=== PATIENT | female | born 1935 | race Caucasian/White ===

== ENCOUNTER 2016-11-19 15:18 | Emergency (ER) | payer MEDICARE ==
[2016-11-19 15:42] VITALS: BP 132/70
[2016-11-19 17:15] LABS: Urine Bacteria 1+ (Absent); Urine Bilirubin Negative (Negative); Urine Glucose Negative (Negative); Urine Nitrite Negative (Negative)
--- NOTE | 2016-11-19 17:45 | RAD ---
INDICATION: Intracranial injury COMPARISON: CT brain February 09, 2016 TECHNIQUE: Noncontrast axial source images were acquired from the skull base to the vertex. FINDINGS: Ventricles/sulci: There is minor age-related cortical atrophy with compensatory dilatation of the CSF spaces. Brain parenchyma: There is no acute focal parenchymal finding, evidence of intracranial mass, or intracranial mass effect. Intracranial hemorrhage:None. Extra-axial spaces: There are no abnormal extra axial fluid collections or evidence of extra-axial mass. Calvarium: There is no calvarial fracture or other calvarial abnormality. Scalp: There is no evidence of scalp or extracalvarial soft tissue abnormality. Paranasal sinuses/mastoid: The paranasal sinuses and mastoid air cells are clear. Other: None. IMPRESSION: Mild atrophy. No acute intracranial findings
[2016-11-19 17:52] LABS: Hematocrit 36 % (35-47); Hemoglobin 11.9 g/dl (12.0-16.0); Mean Corpuscular HGB Conc 33 g/dl (31-36); Mean Corpuscular Hemoglobin 31 pg (27-31); Mean Corpuscular Volume 95 fL (80-97); Mean Platelet Volume 8 um3 (7.4-10.4); Red Blood Count 3.83 10^6/ul (4.0-5.4); Red Cell Distribution Width 14 % (10.5-15); White Blood Count 5.1 10^3/ul (3.5-10.8)
--- NOTE | 2016-11-19 18:09 | RAD ---
INDICATION: Fall. Possible injury. COMPARISON: None TECHNIQUE: Noncontrast axial source images was performed from the skull base to the thoracic inlet. Coronal and and sagittal reformatted images were generated. FINDINGS: Vertebrae: There is no fracture or acute focal bony lesion. There are arthritic findings with prominent anterior vertebral spur formation from C3 through the cervical/thoracic junction. There is endplate sclerosis. Disc space narrowing is present at C6-C7 and C7-T1. This posterior spondylitic ridge formation from C5 through C7. There is mild multilevel foraminal narrowing. Alignment: The craniocervical junction appears normal. The cervical vertebrae are normally aligned. Central Canal: As above. There is mild posterior spondylitic ridge formation and there is mild multilevel foraminal narrowing. MR imaging is a more sensitive method to evaluate the canal and foramina. Intervertebral disc spaces: Multilevel degenerative narrowing. Brain: The visualized brain appears unremarkable. Soft tissues: The visualized soft tissue elements of the neck are unremarkable. The prevertebral soft tissues appear normal. The lung apices are clear. IMPRESSION: MODERATE TO ADVANCED OSTEOARTHRITIS. NO ACUTE FINDINGS.
[2016-11-19 18:14] LABS: Albumin 3.9 g/dL (3.2-5.2); BUN/Creatinine Ratio 21.9 (8-20); Calcium 9.4 mg/dL (8.6-10.3); EGFR African American 71.6 (>60); EGFR Non-African American 55.6 (>60); Globulin 3.2 g/dL (2-4); Potassium 3.9 mmol/L (3.5-5.0); Total Bilirubin 0.3 mg/dL (0.2-1.0); Total Protein 7.1 g/dL (6.4-8.9)
[2016-11-19] MEDS ORDERED: Ciprofloxacin TAB* 500 MG PO ONE (18:24)
--- NOTE | 2016-11-19 18:28 | ED ---
Guy Santamaria Billy, scribed for Julito Rich MD on 11/19/16 at 1634 . Head Injury - HPI Summary HPI Summary: Patient is an 81 year-old female coming to [facility] for evaluation of a head injury s/p simple mechanical fall today at 1500. She states that she was at the [employer] when she tripped on a rug and hit her left caodaism and left shoulder. She comes to the ED for concern of an internal bleed since she is on Warfarin. She reports a constant ache where she hits her head, and this pain does not radiate elsewhere; pain severity 2/10. The pain did not start immediately after the fall. She had a similar injury in January 2016 and was seen in the ED; CT of the brain was normal. She has no other complaints at this time ; she denies any visual changes, dizziness, lightheadedness, numbness, tingling , N/V. Negative LOC. Denies neck pain. - History Of Current Complaint Chief Complaint: EDHeadInjury Stated Complaint: FALL/HEAD INJURY Time Seen by Provider: 11/19/16 16:08 Hx Obtained From: Patient Mechanism Of Injury: Fall From A Standing Position Onset/Duration: Started Hours Ago Onset of Pain: Minutes Severity Currently: Moderate Severity Initially: Moderate Pain Intensity: 2 Pain Scale Used: 0-10 Numeric Location: Discrete At: - left caodaism; left shoulder Aggravating Factor(s): Other: - none Alleviating Factor(s): Other: - none Associated Signs And Symptoms: Headache - Allergies/Home Medications Allergies/Adverse Reactions: Allergies Allergy/AdvReac Type Severity Reaction Status Date / Time Amoxicillin [From Augmentin] Allergy Hives Verified 02/09/16 18:21 Cephalexin [From Keflex] Allergy Hives Verified 02/09/16 18:21 Clarithromycin [From Biaxin] Allergy Hives Verified 02/09/16 18:21 Clavulanic Acid Allergy Hives Verified 02/09/16 18:21 [From Augmentin] Doxycycline Allergy Hives Verified 02/09/16 18:21 Dronedarone [From Multaq] Allergy Hives Verified 02/09/16 18:21 Levofloxacin [From Levaquin] Allergy Hives Verified 02/09/16 18:21 Nitroglycerin Allergy Hives Verified 02/09/16 18:21 Sulfa Antibiotics Allergy Hives Verified 02/09/16 18:21 Sulfamethoxazole Allergy Hives Verified 02/09/16 18:21 w/Trimethoprim [From Bactrim] macrodat Allergy Hives Uncoded 02/09/16 18:21 propofenone Allergy Hives Uncoded 02/09/16 18:21 PMH/Surg Hx/FS Hx/Imm Hx Cardiovascular History: Reports: Hx Atrial Fibrillation Musculoskeletal History: Reports: Hx Arthritis, Other Musculoskeletal History - ankalosing spondylitis Neurological History: Reports: Other Neuro Impairments/Disorders - Parkinson's - Surgical History Surgery Procedure, Year, and Place: cholecystectomy, pacer Infectious Disease History: Denies: Traveled Outside the [place] in Last 30 Days - Family History Known Family History: Negative: Blood Disorder - Social History Alcohol Use: None Substance Use Type: Reports: None Smoking Status (MU): Never Smoked Tobacco Review of Systems Negative: Photophobia, Blurred Vision, Diplopia Negative: Abdominal Pain, Vomiting, Nausea Positive: Other - left shoulder pain Positive: Headache. Negative: Paresthesia, Numbness All Other Systems Reviewed And Are Negative: Yes Physical Exam Triage Information Reviewed: Yes Vital Signs On Initial Exam: Initial Vitals Temp Pulse Resp BP Pulse Ox 98 F 80 15 132/70 98 11/19/16 15:39 11/19/16 15:39 11/19/16 15:39 11/19/16 15:39 11/19/16 15:39 Vital Signs Reviewed: Yes Appearance: Positive: Well-Appearing, No Pain Distress Skin: Positive: Warm, Skin Color Reflects Adequate Perfusion, Dry Head/Face: Positive: Other - ecchymosis of the left caodaism Eyes: Positive: EOMI, ANTONI ENT: Positive: Normal ENT inspection, TMs normal - No hemotympanum Neck: Positive: Supple, Nontender Respiratory/Lung Sounds: Positive: Clear to Auscultation, Breath Sounds Present Cardiovascular: Positive: RRR Abdomen Description: Positive: Nontender, Soft Bowel Sounds: Positive: Present Musculoskeletal: Positive: Strength/ROM Intact, Pain @ - Minimal tenderness of the left lower anterior ribs; no left shoulder tenderness. Neurological: Positive: Normal, Sensory/Motor Intact, Alert, Oriented to Person Place, Time Psychiatric: Positive: Affect/Mood Appropriate Diagnostics - Vital Signs Vital Signs Temp Pulse Resp BP Pulse Ox 11/19/16 15:39 98 F 80 15 132/70 98 - Laboratory Lab Results: Lab Results 11/19/16 11/19/16 11/19/16 Range/Units 16:25 17:35 17:35 WBC 5.1 (3.5-10.8) 10^3/ul RBC 3.83 L (4.0-5.4) 10^6/ul Hgb 11.9 L (12.0-16.0) g/dl Hct 36 (35-47) % MCV 95 (80-97) fL MCH 31 (27-31) pg MCHC 33 (31-36) g/dl RDW 14 (10.5-15) % Plt Count 302 (150-450) 10^3/ul MPV 8 (7.4-10.4) um3 Neut % (Auto) 63.3 (38-83) % Lymph % (Auto) 19.3 L (25-47) % [place] % (Auto) 10.6 H (1-9) % Eos % (Auto) 5.6 (0-6) % Baso % (Auto) 1.2 (0-2) % Absolute Neuts (auto) 3.2 (1.5-7.7) 10^3/ul Absolute Lymphs (auto) 1.0 (1.0-4.8) 10^3/ul Absolute Monos (auto) 0.5 (0-0.8) 10^3/ul Absolute Eos (auto) 0.3 (0-0.6) 10^3/ul Absolute Basos (auto) 0.1 (0-0.2) 10^3/ul Absolute Nucleated RBC 0 10^3/ul Nucleated RBC % 0 INR (Anticoag Therapy) 1.78 H (0.89-1.11) APTT 34.8 (26.0-36.3) seconds Sodium (133-145) mmol/L Potassium (3.5-5.0) mmol/L Chloride (101-111) mmol/L Carbon Dioxide (22-32) mmol/L Anion Gap (2-11) mmol/L BUN (6-24) mg/dL Creatinine (0.51-0.95) mg/dL Est GFR ( Amer) (>60) Est GFR (Non-Af Amer) (>60) BUN/Creatinine Ratio (8-20) Glucose (70-100) mg/dL Calcium (8.6-10.3) mg/dL Total Bilirubin (0.2-1.0) mg/dL AST (13-39) U/L ALT (7-52) U/L Alkaline Phosphatase (34-104) U/L Total Protein (6.4-8.9) g/dL Albumin (3.2-5.2) g/dL Globulin (2-4) g/dL Albumin/Globulin Ratio (1-3) Urine Color Yellow Urine Appearance Clear Urine pH 5.0 (5-9) Ur Specific [place] 1.008 L (1.010-1.030) Urine Protein Negative (Negative) Urine Ketones Negative (Negative) Urine Blood 1+ H (Negative) Urine Nitrate Negative (Negative) Urine Bilirubin Negative (Negative) Urine Urobilinogen Negative (Negative) Ur Leukocyte Esterase 1+ H (Negative) Urine WBC (Auto) 1+(6-10/hpf) H (Absent) Urine RBC (Auto) 1+(3-5/hpf) H (Absent) Ur Squamous Epith Cells Present H (Absent) Urine Bacteria 1+ H (Absent) Urine Glucose Negative (Negative) 11/19/16 Range/Units 17:35 WBC (3.5-10.8) 10^3/ul RBC (4.0-5.4) 10^6/ul Hgb (12.0-16.0) g/dl Hct (35-47) % MCV (80-97) fL MCH (27-31) pg MCHC (31-36) g/dl RDW (10.5-15) % Plt Count (150-450) 10^3/ul MPV (7.4-10.4) um3 Neut % (Auto) (38-83) % Lymph % (Auto) (25-47) % [place] % (Auto) (1-9) % Eos % (Auto) (0-6) % Baso % (Auto) (0-2) % Absolute Neuts (auto) (1.5-7.7) 10^3/ul Absolute Lymphs (auto) (1.0-4.8) 10^3/ul Absolute Monos (auto) (0-0.8) 10^3/ul Absolute Eos (auto) (0-0.6) 10^3/ul Absolute Basos (auto) (0-0.2) 10^3/ul Absolute Nucleated RBC 10^3/ul Nucleated RBC % INR (Anticoag Therapy) (0.89-1.11) APTT (26.0-36.3) seconds Sodium 140 (133-145) mmol/L Potassium 3.9 (3.5-5.0) mmol/L Chloride 107 (101-111) mmol/L Carbon Dioxide 27 (22-32) mmol/L Anion Gap 6 (2-11) mmol/L BUN 21 (6-24) mg/dL Creatinine 0.96 H (0.51-0.95) mg/dL Est GFR ( Amer) 71.6 (>60) Est GFR (Non-Af Amer) 55.6 (>60) BUN/Creatinine Ratio 21.9 H (8-20) Glucose 112 H (70-100) mg/dL Calcium 9.4 (8.6-10.3) mg/dL Total Bilirubin 0.30 (0.2-1.0) mg/dL AST 14 (13-39) U/L ALT 3 L (7-52) U/L Alkaline Phosphatase 109 H (34-104) U/L Total Protein 7.1 (6.4-8.9) g/dL Albumin 3.9 (3.2-5.2) g/dL Globulin 3.2 (2-4) g/dL Albumin/Globulin Ratio 1.2 (1-3) Urine Color Urine Appearance Urine pH (5-9) Ur Specific [place] (1.010-1.030) Urine Protein (Negative) Urine Ketones (Negative) Urine Blood (Negative) Urine Nitrate (Negative) Urine Bilirubin (Negative) Urine Urobilinogen (Negative) Ur Leukocyte Esterase (Negative) Urine WBC (Auto) (Absent) Urine RBC (Auto) (Absent) Ur Squamous Epith Cells (Absent) Urine Bacteria (Absent) Urine Glucose (Negative) Result Diagrams: 11/19/16 17:35 11/19/16 17:35 Lab Statement: Any lab studies that have been ordered have been reviewed, and results considered in the medical decision making process. - CT brain wo CT Interpretation Completed By: Radiologist - Mild atrophy. No acute intracranial findings c-spine wo CT Interpretation Completed By: Radiologist - MODERATE TO ADVANCED OSTEOARTHRITIS. NO ACUTE FINDINGS. Re-Evaluation - Re-Evaluation First Eval Re-Evaluation Time: 18:20 Comment: Labs and imaging reviewed. Head Injury Course/Dx Assessment/Plan: WELL IN ED. DISCUSSED RESULTS WITH PATIENT/FAMILY. DISCHARGE HOME STABLE. - Diagnoses Provider Diagnoses: Head injury, Cervical strain, UTI (urinary tract infection) Discharge - Discharge Plan Condition: Stable Disposition: HOME Prescriptions: Ciprofloxacin TAB* [Cipro Tab*] 500 mg PO BID #13 tab Patient Education Materials: Head Injury (ED), Cervical Strain (ED), Urinary Tract Infection in Women (ED) Referrals: Art Dee MD [Primary Care Provider] - Additional Instructions: FOLLOW UP WITH YOUR DOCTOR. RETURN TO THE EMERGENCY DEPARTMENT FOR ANY WORSENING OF YOUR CONDITION OR QUESTIONS OR CONCERNS. The documentation as recorded by the Guy bond Billy accurately reflects the service I personally performed and the decisions made by me, Julito Rich MD.
== END 2016-11-19 18:45 | disposition home or self-care (01) ==
LOC: ED 15:18
DX: S09.90XA Unspecified injury of head, initial encounter (principal); S13.9XXA Sprain of joints and ligaments of unspecified parts of neck, initial encounter; N39.0 Urinary tract infection, site not specified; I48.91 Unspecified atrial fibrillation; G20 Parkinson's disease; Z88.0 Allergy status to penicillin; W18.09XA Striking against other object with subsequent fall, initial encounter; Y92.9 Unspecified place or not applicable; Z88.2 Allergy status to sulfonamides
CPT/HCPCS: 36415; 70450; 72125; 80053; 81003; 81015; 85025; 85610; 85730; 87077; 87086; 87186; 99282; A9270-GY

== ENCOUNTER 2018-09-26 09:25 | Emergency (ER) | payer MEDICARE ==
--- NOTE | 2018-09-26 09:47 | ED ---
Neurological HPI - HPI Summary HPI Summary: Pt is an 83 y/o F presenting to the ED with a chief complaint of weakness. She was fine when she woke up around 5am, took her medicine with a bottle of boost and a peanut butter sandwich. She started feeling poorly, complaining of shortness of breath and weakness. Pt denies chest pain. - History of Current Complaint Chief Complaint: EDShortnessOfBreath Stated Complaint: WEAKNESS Time Seen by Provider: 09/26/18 09:32 Hx Obtained From: Patient Onset/Duration: Sudden Onset, Started hours ago, Still Present Timing: Constant Onset Severity: Mild Current Severity: None Pain Intensity: 0 Pain Scale Used: 0-10 Numeric Character: Weak, Confusion Associated Signs and Symptoms: Positive: Shortness of Breath - Allergy/Home Medications Allergies/Adverse Reactions: Allergies Allergy/AdvReac Type Severity Reaction Status Date / Time amoxicillin [From Augmentin] Allergy Hives Verified 09/26/18 10:19 cephalexin [From Keflex] Allergy Hives Verified 09/26/18 10:19 clarithromycin [From Biaxin] Allergy Hives Verified 09/26/18 10:19 clavulanic acid Allergy Hives Verified 09/26/18 10:19 [From Augmentin] doxycycline Allergy Hives Verified 09/26/18 10:19 dronedarone [From Multaq] Allergy Hives Verified 09/26/18 10:19 levofloxacin [From Levaquin] Allergy Hives Verified 09/26/18 10:19 nitroglycerin Allergy Hives Verified 09/26/18 10:19 Sulfa (Sulfonamide Allergy Hives Verified 09/26/18 10:19 Antibiotics) sulfamethoxazole Allergy Hives Verified 09/26/18 10:19 [From Bactrim] trimethoprim [From Bactrim] Allergy Hives Verified 09/26/18 10:19 macrodat Allergy Hives Uncoded 02/09/16 18:21 propofenone Allergy Hives Uncoded 02/09/16 18:21 PMH/Surg Hx/FS Hx/Imm Hx Previously Healthy: No Cardiovascular History: Reports: Hx Atrial Fibrillation Musculoskeletal History: Reports: Hx Arthritis, Other Musculoskeletal History - ankalosing spondylitis Neurological History: Reports: Other Neuro Impairments/Disorders - Parkinson's - Surgical History Surgery Procedure, Year, and Place: cholecystectomy, pacer Infectious Disease History: No Infectious Disease History: Denies: Traveled Outside the [place] in Last 30 Days - Family History Known Family History: Negative: Blood Disorder - Social History Alcohol Use: None Substance Use Type: Reports: None Smoking Status (MU): Never Smoked Tobacco Review of Systems Negative: Fever Positive: Shortness Of Breath Positive: Weakness All Other Systems Reviewed And Are Negative: Yes Physical Exam - Summary Physical Exam Summary: VITAL SIGNS: Reviewed. GENERAL: Patient is an elderly and nourished female who is lying comfortable in the stretcher. Patient is not in any acute respiratory distress. HEAD AND FACE: No signs of trauma. No ecchymosis, hematomas or skull depressions. No sinus tenderness. EYES: PERRLA, EOMI x 2, No injected conjunctiva, no nystagmus. EARS: Hearing grossly intact. Ear canals and tympanic membranes are within normal limits. MOUTH: Oral mucosa dry. NECK: Supple, trachea is midline, no adenopathy, no JVD, no carotid bruit, no c- spine tenderness, neck with full ROM. CHEST: Symmetric, no tenderness at palpation LUNGS: Clear to auscultation bilaterally. No wheezing or crackles. CVS: Regular rate and rhythm, S1 and S2 present, no murmurs or gallops appreciated. ABDOMEN: Soft, non-tender. No signs of distention. No rebound no guarding, and no masses palpated. Bowel sounds are normal. EXTREMITIES: FROM in all major joints, no edema, no cyanosis or clubbing. NEURO: Alert and oriented x 3. No acute neurological deficits. Speech is normal and follows commands. SKIN: Dry and warm Triage Information Reviewed: Yes Vital Signs On Initial Exam: Initial Vitals Temp Pulse Resp BP Pulse Ox 97.3 F 84 15 121/64 97 09/26/18 09:30 09/26/18 09:30 09/26/18 09:30 09/26/18 09:30 09/26/18 09:30 Vital Signs Reviewed: Yes Diagnostics - Vital Signs Vital Signs Temp Pulse Resp BP Pulse Ox 09/26/18 09:30 97.3 F 84 15 121/64 97 - Laboratory Result Diagrams: 09/26/18 10:30 09/26/18 10:30 Lab Statement: Any lab studies that have been ordered have been reviewed, and results considered in the medical decision making process. - Radiology Chest XRay Radiology Interpretation Completed By: Radiologist Summary of Radiographic Findings: FINDINGS SUGGESTIVE OF COPD, NO EVIDENCE FOR ACUTE FINDINGS. ED physician has reviewed this report. - EKG 0935 Cardiac Rate: NL - 74bpm EKG Rhythm: Sinus Rhythm ST Segment: Normal Ectopy: None Summary of EKG Findings: Venticular-paced complexes NIH Scale - NIH Scale Level of Consciousness: Alert/Keenly Responsive Ask Patient the Month and His/Her Age: Both Correct Ask Pt to Open/Close Eyes and Drill Foreman/Release Non-Paretic Hand: Both Correctly Best Gaze (Only Horizontal Eye Movement): Normal Visual Field Testing: No Visual Loss Facial Paresis-Pt to Smile & Close Eyes or Grimace Symmetry: Normal/Symmetrical Motor Function - Right Arm: No Drift-Holds 10 Seconds Motor Function - Left Arm: No Drift-Holds 10 Seconds Motor Function - Right Leg: No Drift-Holds 10 Seconds Motor Function - Left Leg: No Drift-Holds 10 Seconds Limb Ataxia-Must be out of Proportion to Weakness Present: Absent Sensory (Use Pinprick to Test Arms/Legs/Trunk/Face): Normal Best Language (Describe Picture, Name Items): No Aphasia Dysarthria (Read Several Words): Normal Extinction and Inattention: No Abnormality Total Score: 0 Course/Dx - Course Assessment/Plan: Pt is an 83 y/o F presenting to the ED with a chief complaint of weakness. She was fine when she woke up around 5am, took her medicine with a bottle of boost and a peanut butter sandwich. She started feeling poorly, complaining of shortness of breath and weakness. Pt denies chest pain. Chest x- ray impression: Findings suggestive of COPD. No evidence for acute findings. Blood tests without any significant abnormality except for glucose of 113, CRP of 10.2, BNP 8-88, urinalysis is negative for UTI. Urine tox negative for UTI. Blood tests without any significant abnormality, the patient does have any signs of infection. Patient has no UTI and she has no pneumonia. At this point the patient is drinking fluids without any nausea or vomiting, she is ambulating without any help, and she is feeling better. I discussed all the findings and test results with the patient and the patient's daughter and the need to follow-up with the primary care physician. They understand and agree. All her questions were answered and there are no further concerns. She was recommended to return to the emergency department if she develops any shortness of breath, chest pain, fever, chills, nausea vomiting or abdominal pain. The patient understands and agrees. - Diagnoses Provider Diagnoses: Weakness, Clinical decompensation Discharge - Sign-Out/Discharge Documenting (check all that apply): Patient Departure - Discharge Plan Condition: Stable Disposition: HOME Referrals: Art Dee MD [Primary Care Provider] - - Billing Disposition and Condition Condition: STABLE Disposition: Home - Attestation Statements Document Initiated by Scribe: Yes Documenting Scribe: Freya Hernandez Provider For Whom Cal is Documenting (Include Credential): Herman Augilar MD. Scribe Attestation: Freya Santamaria scribed for Herman Aguilar MD. on 09/27/18 at 0735. Scribe Documentation Reviewed: Yes Provider Attestation: The documentation as recorded by the Freya bond accurately reflects the service I personally performed and the decisions made by , Herman Aguilar MD. Status of Scribe Document: Viewed
[2018-09-26 10:36] LABS: ABS Basophils 0.1 10^3/ul (0-0.2); ABS Eosinophils 0.1 10^3/ul (0-0.6); ABS Lymphocytes 0.7 10^3/ul (1.0-4.8); ABS Monocytes 0.5 10^3/ul (0-0.8); ABS Neutrophils 4.7 10^3/ul (1.5-7.7); ABS Nucleated RBC 0 10^3/ul; Eosinophil % 2.1 %; Hematocrit 35 % (35-47); Hemoglobin 11.2 g/dl (12.0-16.0); Lymphocyte % 11.4 %; Mean Corpuscular HGB Conc 33 g/dl (31-36); Mean Corpuscular Hemoglobin 30 pg (27-31); Mean Corpuscular Volume 92 fL (80-97); Mean Platelet Volume 7.2 fL (7.4-10.4); Nucleated Red Blood Cells % 0; Platelet Count 405 10^3/ul (150-450); Red Blood Count 3.74 10^6/ul (4.00-5.40); Red Cell Distribution Width 15 % (10.5-15)
[2018-09-26 10:54] LABS: EGFR Non-African American 62.9 (>60)
[2018-09-26 11:04] LABS: Urine Appearance Clear; Urine Blood 1+ (Negative); Urine Color Straw; Urine Ketones Negative (Negative); Urine Protein Negative (Negative); Urine Red Blood Cell Trace(0-2/hpf) (Absent); Urine Specific Gravity 1.004 (1.010-1.030); Urine Urobilinogen Negative (Negative); Urine White Blood Cell Absent (Absent)
[2018-09-26] MEDS ORDERED: Aspirin 81 mg CHEW TAB* 81 MG TAB.CHEW PO ONE (12:04)
[2018-09-26] MEDS ORDERED: Nitroglycerin TAB 0.4 MG* 0.4 MG TAB SL ONE (12:04)
[2018-09-26 13:00] VITALS: BP 122/76
--- NOTE | 2018-09-29 06:01 | PN ---
Progress Note - Progress Note Date of Service: 09/29/18 Note: patient urine culture grew E coli 10-25,000. patient did not have any uti symptoms per note and this is not a significant culture so will not treat at this time.
== END 2018-09-26 13:00 | disposition home or self-care (01) ==
LOC: ED 09:25
DX: R06.02 Shortness of breath (principal); R53.1 Weakness
CPT/HCPCS: 36415; 71046; 80053; 80307; 80320; 81003; 81015; 82550; 83605; 83735; 83880; 84443; 84484; 85025; 86140; 87077; 87086; 87186; 93005; 99283; G0480

== ENCOUNTER 2019-03-06 17:54 | Inpatient (IN) | payer MEDICARE ==
[2019-03-06] MEDS ORDERED: NS 0.9% 1000 ML** 1,000 ML IV ONE (18:06)
--- NOTE | 2019-03-06 18:10 | ED ---
Complex/Multi-Sys Presentation - HPI Summary HPI Summary: Patient is an 83 y/o female brought in by EMS who presents to the ED c/o weakness. She has a hx of Parkinsons, and has had increased weakness and tremors over the past 2 weeks. Patient states she usually has tremors starting around 12:00 every day, however this time they are lasting abnormally long. She also c/o rhinorrhea, and as per family shes been c/o fever and abdominal pain after eating in the past few days. Patient denies any cough, congestion, diarrhea, or back pain. PMSHx chronic constipation, cholecystectomy. - History Of Current Complaint Chief Complaint: EDWeakness Time Seen by Provider: 03/06/19 18:03 Hx Obtained From: Patient, Medical Records Onset/Duration: Gradual Onset, Lasting Weeks - 2, Still Present Timing: Constant Aggravating Factor(s): Nothing Alleviating Factor(s): Nothing Associated Signs And Symptoms: Positive: Weakness, Other - tremors. Negative: Cough, Diarrhea, Back Pain, Fever Related History: Other - Parkinson's - Allergies/Home Medications Allergies/Adverse Reactions: Allergies Allergy/AdvReac Type Severity Reaction Status Date / Time amoxicillin [From Augmentin] Allergy Hives Verified 09/26/18 10:19 cephalexin [From Keflex] Allergy Hives Verified 09/26/18 10:19 clarithromycin [From Biaxin] Allergy Hives Verified 09/26/18 10:19 clavulanic acid Allergy Hives Verified 09/26/18 10:19 [From Augmentin] doxycycline Allergy Hives Verified 09/26/18 10:19 dronedarone [From Multaq] Allergy Hives Verified 09/26/18 10:19 levofloxacin [From Levaquin] Allergy Hives Verified 09/26/18 10:19 nitroglycerin Allergy Hives Verified 09/26/18 10:19 Sulfa (Sulfonamide Allergy Hives Verified 09/26/18 10:19 Antibiotics) sulfamethoxazole Allergy Hives Verified 09/26/18 10:19 [From Bactrim] trimethoprim [From Bactrim] Allergy Hives Verified 09/26/18 10:19 macrodat Allergy Hives Uncoded 02/09/16 18:21 propofenone Allergy Hives Uncoded 02/09/16 18:21 PMH/Surg Hx/FS Hx/Imm Hx Cardiovascular History: Reports: Hx Atrial Fibrillation GI History: Reports: Hx Gall Bladder Disease - cholecystectomy, Other GI Disorders - chronic constipation Musculoskeletal History: Reports: Hx Arthritis, Other Musculoskeletal History - ankalosing spondylitis Neurological History: Reports: Other Neuro Impairments/Disorders - Parkinson's - Surgical History Surgery Procedure, Year, and Place: cholecystectomy, pacer Infectious Disease History: No Infectious Disease History: Denies: Traveled Outside the [place] in Last 30 Days - Family History Known Family History: Negative: Blood Disorder - Social History Alcohol Use: None Hx Substance Use: No Substance Use Type: Reports: None Hx Tobacco Use: No Smoking Status (MU): Never Smoked Tobacco Review of Systems Positive: Fever Positive: Nasal Discharge, Other - NEGATIVE: congestion Negative: Cough Positive: Abdominal Pain. Negative: Diarrhea Negative: Myalgia - back pain Neurological: Other - tremors Positive: Weakness - generalized All Other Systems Reviewed And Are Negative: Yes Physical Exam - Summary Physical Exam Summary: Appearance: well appearing, no pain distress Skin: hot, dry, reflects adequate perfusion Head/face: normal Eyes: EOMI, ANTONI ENT: mucous membranes moist, dentures, no nasal discharge Neck: supple, non-tender Respiratory: shallow respirations, no crackles, breath sounds present Cardiovascular: RRR, pulses symmetrical, pacemaker in left chest, chronic- appearing BLE 2+ pitting edema Abdomen: moderate RLQ tenderness, no rebound, soft, mild distention focused around RLQ Bowel Sounds: present Musculoskeletal: normal, strength/ROM intact Neuro: sensory motor intact, A&Ox3, resting tremor in BUE Triage Information Reviewed: Yes Vital Signs On Initial Exam: Initial Vitals Temp Pulse Resp BP Pulse Ox 99.4 F 88 14 121/56 94 03/06/19 17:57 03/06/19 17:57 03/06/19 17:57 03/06/19 17:57 03/06/19 17:57 Vital Signs Reviewed: Yes Diagnostics - Vital Signs Vital Signs Temp Pulse Resp BP Pulse Ox 03/06/19 17:57 99.4 F 88 14 121/56 94 - Laboratory Result Diagrams: 03/06/19 18:43 03/06/19 18:43 Lab Statement: Any lab studies that have been ordered have been reviewed, and results considered in the medical decision making process. - Radiology CXR Radiology Interpretation Completed By: Radiologist Summary of Radiographic Findings: Chest x-ray findings are most compatible with cardiogenic pulmonary edema, likely with bibasilar pleural effusions. ED physician reviewed radiology report. - CT CT A/P CT Interpretation Completed By: Radiologist Summary of CT Findings: 1. Irregular thickwalled cecum and pericecal inflammatory stranding which could represent infectious or inflammatory process versus tumor. The appendix is not clearly visualized, and appendicitis and diverticulitis are additional possibilities. No evidence of perforation. Recommend correlation with clinical history and colonoscopy. 2. Small to moderate right pleural effusion. Bilateral lower lobe atelectasis. 3. The gallbladder is not visualized and may be surgically absent. Correlate with surgical history. 4. Appendix not clearly identified. Appendicitis is not excluded. 5. Diverticulosis coli. 6. Other non-emergent findings as above. ED physician reviewed radiology report. - EKG 18:22 Cardiac Rate: Other Rate - Afib - 91 bpm EKG Rhythm: Atrial Fibrillation ST Segment: Non-Specific Summary of EKG Findings: LAD, no pacer spikes Re-Evaluation - Re-Evaluation First Eval Re-Evaluation Time: 20:44 Change: Worse Comment: Pt is now febrile. Second Eval Re-Evaluation Time: 20:53 Change: Unchanged Comment: Discussed admission plan. Complex Multi-Symp Course/Dx Course Of Treatment: Nurses notes reviewed. Patient with complaint of weakness but her family adds that she's been having abdominal pain for the last couple days. She developed a fever after feeling very warm on arrival. There is pain and some distention mostly in the right lower quadrant. CT scan shows a colitis /diverticulitis/appendicitis picture in that area. She currently has multiple medical comorbidities including CHF with elevated BNP and evidence of effusions on x-ray as well as an INR that is therapeutic at 2.5. The surgeon was contacted and will evaluate the patient. She was given IV antibiotics to cover the abdominal pathology/sepsis. We are limited in our choices given multiple allergies to antibiotics. She was given Rocephin and Flagyl without ill effect. She will be made NPO until evaluated by the surgeon. Admit by hospitalist. - Diagnoses Differential Diagnoses/HQI/PQRI: Other - UTI, pneumonia, diverticulitis, colitis , appendicitis, abd abscess, mesenteric ischemia Provider Diagnoses: Sepsis, Hypothyroidism, Chronic CHF, Cecal diverticulitis - Physician Notifications Discussed Care Of Patient With: Misael Tushar Time Discussed With Above Provider: 20:48 Instructed by Provider To: Other - Dr. Finley will consult with the patient. At 20:50 Dr. Lopes accepts pt for admission. - Critical Care Time Critical Care Time: 30-74 min - CCT is exclusive of separately billable procedures Discharge - Sign-Out/Discharge Documenting (check all that apply): Patient Departure - Admit Patient Received Moderate/Deep Sedation with Procedure: No - Discharge Plan Condition: Fair Disposition: ADMITTED TO [facility] Referrals: Art Dee MD [Primary Care Provider] - - Billing Disposition and Condition Condition: FAIR Disposition: Admitted to [facility] - Attestation Statements Document Initiated by Scribe: Yes Documenting Scribe: Delaney Funes Provider For Whom Veroniqueibe is Documenting (Include Credential): Hunter Suarez MD Scribe Attestation: Delaney Santamaria, scribed for Hunter Suarez MD on 03/06/19 at 2126. Scribe Documentation Reviewed: Yes Provider Attestation: The documentation as recorded by the Delaney bond accurately reflects the service I personally performed and the decisions made by Hunter block MD Status of Scribe Document: Viewed
[2019-03-06 18:36] LABS: Influenza A Molecular NEGATIVE (Negative); Influenza B Molecular NEGATIVE (Negative)
[2019-03-06 18:50] LABS: ABS Basophils 0.1 10^3/ul (0-0.2); ABS Lymphocytes 0.4 10^3/ul (1.0-4.8); ABS Monocytes 1.3 10^3/ul (0-0.8); ABS Neutrophils 10.8 10^3/ul (1.5-7.7); Eosinophil % 0.1 %; Hematocrit 28 % (35-47); Hemoglobin 8.8 g/dL (12.0-16.0); Mean Corpuscular HGB Conc 32 g/dL (31-36); Mean Corpuscular Hemoglobin 27 pg (27-31); Mean Corpuscular Volume 83 fL (80-97); Mean Platelet Volume 7.1 fL (7.4-10.4); Platelet Count 485 10^3/uL (150-450); Red Cell Distribution Width 17 % (10.5-15); White Blood Count 12.5 10^3/uL (3.5-10.8)
[2019-03-06 18:57] LABS: INR 2.5 (0.82-1.09)
[2019-03-06 19:08] LABS: ALT 4 U/L (7-52); AST 9 U/L (13-39); Albumin 3.6 g/dL (3.2-5.2); Albumin/Globulin Ratio 1.1 (1-3); Alkaline Phosphatase 70 U/L (34-104); Anion Gap 7 mmol/L (2-11); BUN/Creatinine Ratio 27.7 (8-20); Blood Urea Nitrogen 26 mg/dL (6-24); C Reactive Protein 134.36 mg/L (<8.01); CO2 Carbon Dioxide 25 mmol/L (22-32); Chloride 104 mmol/L (101-111); Creatine Kinase 31 U/L (10-223); EGFR African American 68.6 (>60); EGFR Non-African American 56.7 (>60); Globulin 3.4 g/dL (2-4); Glucose 137 mg/dL (70-100); Magnesium 2.4 mg/dL (1.9-2.7); Potassium 4.1 mmol/L (3.5-5.0); Sodium 136 mmol/L (135-145)
[2019-03-06 19:09] LABS: Troponin I 0.01 ng/mL (<0.04)
[2019-03-06] MEDS ORDERED: Iodixanol* (CONTRAST) 320 MG/ML 100 ML SDV IV ONE (19:12)
[2019-03-06 19:47] LABS: TSH (Thyroid Stimulating Horm) 7.82 mcIU/mL (0.34-5.60)
[2019-03-06] MEDS ORDERED: metroNIDAZOLE IV 500 MG/100ML* 500 MG/100 ML BAG IVPB ONE (19:58)
[2019-03-06] MEDS ORDERED: cefTRIAXone(*) 1 GM in NS 0.9% 50 ML* 50 ML IVPB ONE ×2 (19:58→22:17)
[2019-03-06 20:26] LABS: Urine Appearance Cloudy; Urine Bacteria Absent (Absent); Urine Bilirubin Negative (Negative); Urine Blood 1+ (Negative); Urine Color Straw; Urine Glucose Negative (Negative); Urine Ketones Negative (Negative); Urine Nitrite Negative (Negative); Urine Protein Negative (Negative); Urine Red Blood Cell Trace(0-2/hpf) (Absent); Urine Specific Gravity 1.009 (1.010-1.030); Urine Squamous Epithelial Cell Present (Absent); Urine Urobilinogen Negative (Negative); Urine White Blood Cell Trace(0-5/hpf) (Absent)
[2019-03-06] MEDS ORDERED: Acetaminophen TAB* 325 MG PO ONE (20:55)
[2019-03-06] MEDS ORDERED: NS 0.9% 1000 ML** 1,000 ML IV SCH (21:00)
[2019-03-06] MEDS ORDERED: Phytonadione Oral Solution* 5 MG/25 ML UDC PO ONE (21:39)
[2019-03-06] MEDS ORDERED: ED ceFAZolin 1 GM/50 ML 1 GM/50 ML PREMIX.SET IVPB ONE (21:42)
[2019-03-06 22:18] LABS: % Iron Saturation 7 % (15-55); Iron 23 ug/dL (50-212); Total Iron Binding Capacity 311 mcg/dL (250-450); Transferrin 222 mg/dL (203-362)
[2019-03-06] MEDS ORDERED: CARBOXYMETHYLCELLULOSE SODIUM BOTH EYES PRN (22:19)
[2019-03-06 22:37] LABS: Ferritin 37.1 ng/mL (11-307)
[2019-03-06] MEDS ORDERED: Furosemide IV* 10 MG/ML VIAL (40 MG) IV ONE (22:40)
[2019-03-06] MEDS ORDERED: Diltiazem TAB* 60 MG PO SCH (23:00)
[2019-03-06] MEDS ORDERED: Atenolol TAB* 50 MG PO SCH (23:00)
[2019-03-06] MEDS: Carbidopa/Levodop 25/100 MG TAB(*) PO SCH (23:29)
--- NOTE | 2019-03-07 02:29 | HP ---
HISTORY AND PHYSICAL: DATE OF ADMISSION: 03/06/19 ADMITTING PROVIDER: Mingo Lopes MD PRIMARY CARE PROVIDER: Art Dee MD OUTPATIENT INSTRUCTIONAL COACH: Jason Licona MD OUTPATIENT NEUROLOGIST: Dr. Lan. CHIEF COMPLAINT: Rigors; intermittent right lower quadrant abdominal pain; progressive dyspnea on exertion. HISTORY OF PRESENT ILLNESS: Kavita Weiss is an 83-year-old female with PMH of chronic atrial fibrillation(on Coumadin); tachybrady syndrome, status post permanent pacemaker; Parkinson's disease, hypothyroidism and ankylosing spondylitis. For a few days, she has had intermittent right lower quadrant sharp pains that were frankly not that intense, rated 1/10. Day prior to admission, she had 4 hours of shaking chills and again on day of admission 6 hours of shaking chills, she fell backwards on the back of her bed and presented to [facility] Emergency Room where she was found to have a fever of 102.1, tachycardic to 106, leukocytosis of 12.5, no lactic acidosis (1.4), a CRP of 134 , BNP of 590 and a chest x-ray was consistent with cardiogenic pulmonary edema with bibasilar pleural effusions, normal LFTs. She had a CT abdomen and pelvis with IV contrast that demonstrated irregular, thick-walled cecum and pericecal inflammatory stranding, which could represent infectious or inflammatory process versus tumor. The appendix was not clearly visualized and appendicitis and diverticulitis are additional possibilities. No evidence of perforation. Recommended correlation with clinical history and colonoscopy. Small to moderate right pleural effusion. Bilateral lower lobe atelectasis. Gallbladder is surgically absent. Diverticulosis coli seen. Dr. Finley of General Surgery was consulted, who recommended medicine admission and they will consult. Of note, she is on Coumadin and INR is 2.50. Upon review of images, Dr. Finley is concerned that there may be a possible abscess that may need to be drained by Interventional Radiology in the coming days, but did not think there was surgical indication at this immediate time. Recommended continuation of antibiotics (she has received ceftriaxone 1 g and Flagyl 500 mg in the emergency room along with 2 L of normal saline fluid bolus). Additional history is that she has felt more short of breath over the last couple of weeks with exertion walking down her mobile home from one side to the other. Denies orthopnea or paroxysmal nocturnal dyspnea. Her weights are usually 130 to 135lbs. She had a colonoscopy at age 79, in which she had some polyps removed and was told by Dr. Erwin not to arrange further colonoscopies given her age. PAST MEDICAL HISTORY: 1. Chronic atrial fibrillation. 2. Sick sinus syndrome, status post permanent pacemaker (2004) and generator change (2015). 3. Hypothyroidism. 4. Ankylosing spondylitis. 5. Parkinson's disease. PAST SURGICAL HISTORY: 1. Tubal ligation. 2. Cholecystectomy in 1971. 3. Permanent pacemaker placement in 2004. 4. ASD closure 07/13/09 MEDICATIONS: 1. Lasix 60 mg po daily. 2. Sinemet (carbidopa/levodopa) 25/100 mg p.o. t.i.d. 3. Atenolol 50 mg p.o. b.i.d. 4. Warfarin 5 mg Thursday, Thursday, Thursday and 2.5 mg Thursday, Thursday, , Thursday. 5. Potassium chloride 10 mEq daily. 6. Levothyroxine with many recent dosage changes, most recently prescribed was 88 mg, though she has not yet picked that up and has been taking 75 mcg; before that had been taking 112 mcg 7. Diltiazem 120 mg p.o. b.i.d. ALLERGIES: AMOXICILLIN/CLAVULANIC ACID/AUGMENTIN, KEFLEX (CEPHALEXIN), CLARITHROMYCIN, DOXYCYCLINE, MULTAQ, LEVAQUIN, NITROGLYCERIN, SULFA ANTIBIOTICS , PROPAFENONE (these all give hives) SOCIAL HISTORY: The patient is a former smoker of 5 to 6 years, quit in 1972. She abstains from alcohol for the last 30 to 35 years and was never a heavy drinker. No drug use. 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 She is DNR/DNI. Her medical surrogate is Daphnie Perera, daughter. FAMILY HISTORY: Her mother of metastatic melanoma at age 86. Father of work place accident. REVIEW OF SYSTEMS: A complete 14-point review of systems is negative except as per HPI. She denies any cough except dry cough recently in the emergency room. PHYSICAL EXAMINATION GENERAL APPEARANCE: No acute distress, though a little pale and mildly ill appearing. VITAL SIGNS: Temperature initially 99.4, then 102.1; heart rate initially 93, as high as 106, currently 104; respiratory rate ranges between 14 and 37, oxygen saturation between 89% and 94% on room air, blood pressure 121/56. HEENT: Normocephalic, atraumatic. Pupils equal, round, and reactive to light. Extraocular motions are intact. No scleral icterus. NECK: Supple. LUNGS: With rales at the bilateral bases. No wheezing or rhonchi. CARDIOVASCULAR: Irregularly irregular. Tachycardic. No murmurs, rubs, or gallops. ABDOMEN: Soft. Some moderate point tenderness in the right lower quadrant with deep palpation. No rebound, no guarding. No Rubio's sign. EXTREMITIES: Warm, well perfused. 1 to 2+ pitting edema, bilaterally. NEURO: Cranial nerves II through XII intact. Moving all extremities. SKIN: No lesions or rashes. LABORATORY DATA: White count 12.5, hemoglobin 8.8, hematocrit 28, platelets 245. INR 2.50. Sodium 136, potassium 4.1, chloride 104, carbon dioxide 25, anion gap 7, BUN 26, creatinine 0.94, glucose 137. Lactic acid 1.4. Calcium 9.0. Magnesium 2.4. AST 9, ALT 4, alk phos 70. Troponin 0.01. CRP 134. BNP 590. TSH 7.82. Albumin 3.6. Urinalysis 1+ blood, specific gravity 1.009. Influenza A and B, rapids were negative. IMAGING: Chest x-ray demonstrated cardiogenic pulmonary edema with bibasilar pleural effusions. CT abdominal pain, impression: 1. Irregular, thick-walled cecum and pericecal inflammatory stranding, which could represent infectious or inflammatory process versus tumor. Appendix was not clearly visualized, and appendicitis and diverticulitis are additional possibilities. No evidence of perforation. Recommended correlation with clinical history and colonoscopy. 2. Small to moderate right pleural effusion. Bilateral lower lobe atelectasis. 3. The gallbladder is not well visualized and may be surgically absent. Correlate with surgical history. 4. Appendix not clearly identified. Appendicitis is not excluded. 5. Diverticulosis coli. 6. Other nonemergent findings as above. Her EKG demonstrated atrial fibrillation, heart rate is 91, T wave inversions in V4 through V6, no ST elevations or depressions, poor R wave progression. ASSESSMENT AND PLAN: Kavita Weiss is an 83-year-old female with past medical history of paroxysmal atrial fibrillation, on Coumadin; hypothyroidism; ankylosing spondylitis; and Parkinson's disease presenting with intermittent, sharp right lower quadrant pains and 2 days of rigors. She is febrile, has leukocytosis, tachycardic, meeting sepsis criteria. No lactic acidosis. No organ failure. Concerned for sepsis secondary to cecal abscess versus ruptured appendicitis. I talked to Dr. Finley, he would like to give her some vitamin K and to continue antibiotics and keep her n.p.o. He plans on talking to Dr. Carlo Wilkins of Interventional Radiology tomorrow to determine if a drain may need to be placed, although cannot rule out the need for exploratory laparotomy depending on clinical course. I am going to give her 1 additional gram of ceftriaxone for a total 2 and then continue 2 g q.24 hours. Continue metronidazole 500 mg q.8 hours IV. Her blood pressures are currently preserved. She is in atrial fibrillation chronically. I hope to continue her atenolol and diltiazem. Keep her on telemetry. She is n.p.o except for sips with meds. For her Parkinson's, continue her Sinemet. For her atrial fibrillation, hold her warfarin. I am giving her 2 mg of p.o. vitamin K to help reserve the INR. Hypothyroidism. Continue Synthroid 88 mcg daily. For her acute congestive heart failure with evidence of elevated BNP, some cardiogenic pulmonary edema, lower extremity edema, increased dyspnea on exertion. We will get echocardiogram. She is status post 2 L of normal saline in the emergency room. I am going to diuresis her. She is on 60 mg po Lasix at home. I am going to give her 40mg of IV tonight and continue 60 p.o. in the daytime starting tomorrow. Get daily weights, strict I's and O's. In terms of surgical risk stratification, she has no history of chronic kidney disease, insulin-dependent diabetes mellitus or cerebrovascular accidents. She does have evidence of heart failure giving her a score of 1 on RCRI. We will also see what the echocardiogram shows. She denies chest pain. She would be an acceptable surgical candidate. Of note, code status is DNR/DNI. Medical surrogate is her daughter, Daphnie Perera. [id number]/CPS #: [id number] [facility] MEDICAL CENTERJoleen
[2019-03-07] MEDS: metroNIDAZOLE IV 500 MG/100ML* 500 MG/100 ML BAG IVPB SCH ×3 (03:54→22:14)
[2019-03-07] MEDS: Levothyroxine TAB* 88 MCG TAB PO SCH (05:34)
[2019-03-07 07:01] LABS: ABS Basophils 0.1 10^3/ul (0-0.2); ABS Lymphocytes 0.6 10^3/ul (1.0-4.8); ABS Monocytes 1.4 10^3/ul (0-0.8); ABS Neutrophils 10.3 10^3/ul (1.5-7.7); Eosinophil % 0.1 %; Hematocrit 24 % (35-47); Hemoglobin 7.3 g/dL (12.0-16.0); Lymphocyte % 5.1 %; Mean Corpuscular HGB Conc 31 g/dL (31-36); Mean Corpuscular Hemoglobin 26 pg (27-31); Mean Corpuscular Volume 85 fL (80-97); Mean Platelet Volume 7.4 fL (7.4-10.4); Platelet Count 403 10^3/uL (150-450); Red Blood Count 2.79 10^6 /uL (3.70-4.87); Red Cell Distribution Width 17 % (10.5-15); White Blood Count 12.4 10^3/uL (3.5-10.8)
[2019-03-07 07:05] LABS: INR 2.3 (0.82-1.09)
[2019-03-07 07:16] LABS: Calcium 7.8 mg/dL (8.6-10.3); EGFR African American 91.9 (>60); Potassium 3.3 mmol/L (3.5-5.0)
[2019-03-07] MEDS: Potassium Chlor TAB* 10 MEQ TAB.ER PO SCH (08:26)
[2019-03-07] MEDS: Carbidopa/Levodop 25/100 MG TAB(*) PO SCH ×3 (08:28→21:33)
[2019-03-07] MEDS: Pantoprazole IV* 40 MG IV SCH (10:08)
[2019-03-07] MEDS: Atenolol TAB* 50 MG PO SCH ×2 (10:09→21:33)
[2019-03-07] MEDS ORDERED: Phytonadione IV (Adult)* 10 MG/ML 1 ML AMP IV ONE (10:16)
--- NOTE | 2019-03-07 10:23 | PN ---
Subjective Date of Service: 03/07/19 Interval History: Pt has had abd pain in RLQ x 3 days, febrile in ED. SOB in AM for several weeks. B/l LE's edema that gets better after a nights sleep Objective Active Medications: Atenolol (Tenormin Tab*) 50 mg PO BID [facility] Last Admin: 03/07/19 10:09 Dose: Not Given Carbidopa/Levodopa (Sinemet 25/100 Tab(*)) 1 tab PO TID [facility] Last Admin: 03/07/19 08:28 Dose: 1 tab Metronidazole/Sodium Chloride (Flagyl 500 Mg Ivpb*) 500 mg in 100 mls @ 100 mls /hr IVPB Q8H [facility] Last Admin: 03/07/19 03:54 Dose: 100 mls/hr Ceftriaxone Sodium 2 gm/ (Sodium Chloride) 100 mls @ 200 mls/hr IVPB Q24H [facility] Dextrose/Lactated Ringer's (D5lr 1000 Ml Bag*) 1,000 mls @ 50 mls/hr IV PER RATE [facility] Potassium Chloride (Potassium Chloride 20 Meq/100 Ml Ivpremix*) 20 meq in 100 mls @ 50 mls/hr IV Q2H [facility] Stop: 03/07/19 14:59 Levothyroxine Sodium (Synthroid Tab*) 88 mcg PO DAILY@0600 [facility] Last Admin: 03/07/19 05:34 Dose: 88 mcg Nft: Carboxymethylcellulo se Sodium [Refresh Tears] 1 Drop 1 drop BOTH EYES .SEE INSTRUCTIONS PRN PRN Reason: DRY EYE Pantoprazole Sodium (Protonix Iv*) 40 mg IV DAILY [facility] Last Admin: 03/07/19 10:08 Dose: 40 mg Phytonadione (Vitamin K1 Inj (Adult)*) 5 mg IV ONCE ONE Stop: 03/07/19 10:17 Potassium Chloride (Klor Con Er Tab*) 10 meq PO DAILY [facility] Last Admin: 03/07/19 08:26 Dose: 10 meq Vital Signs - 8 hr 03/07/19 03/07/19 04:00 08:00 Temperature 97 F Pulse Rate 67 Respiratory 17 18 Rate Blood Pressure 90/47 (mmHg) O2 Sat by Pulse 100 Oximetry Oxygen Devices in Use Now: Nasal Cannula Appearance: 83 yo F in nAD, aAOx3 Eyes: No Scleral Icterus, PERRLA Ears/Nose/Mouth/Throat: NL Teeth, Lips, Gums, Mucous Membranes Moist Neck: NL Appearance and Movements; NL JVP, Trachea Midline Respiratory: Symmetrical Chest Expansion and Respiratory Effort, - - crackles at b/l bases Cardiovascular: - - irregular Abdominal: No Hepatosplenomegaly, - - tender in RLQ, no rebound, no guarding, BS + Lymphatic: No Cervical Adenopathy Extremities: No Clubbing, Cyanosis, - - trace pedal edema b/l Skin: No Rash or Ulcers, No Nodules or Sclerosis Neurological: Alert and Oriented x 3, NL Muscle Strength and Tone Result Diagrams: 03/07/19 06:17 03/07/19 06:17 Assess/Plan/Problems-Billing Assessment: 83 yo F with h/o chronic a. fib on Coumadin,ankylosing spondylitis, no h/o CHF but on Lasix 60 mg daily, pacer for SSS presents with RLQ abd pain and inflammatory change in cecum (? if pt has an appendix since she was told it was removed during tubal ligation "years ago") - Patient Problems (1) Colitis Comment: with sepsis at admission cont Ceftriaxone/Flagyl CT shows no appendix visualized and inflammation of cecum (? fluid collection- Dr. Renee to d/w radiology) diet-clears for now reversing coumadin in case pt needed surgery (2) CHF (congestive heart failure) Comment: acute, pt has no h/o CHF but on Lasix 60 at home Got Lasix 40 mg IV in ED, then hypotensive overnight will stat gentle IVF Get Echo Monitor daily weights and I/Os' Unfortunately cannot use more diuretics for now due to hypotension Pt reports chronic leg edema that likely related to evous stasis (3) Parkinson disease Comment: controlled on sinemet (4) Atrial fibrillation Comment: chronic cont Amiodarone and Atenolol with hold parameters Reversing anticoagulation cont telem (5) Anemia Comment: worrisome Pt denies melena or BRBPR could cecal changes be due to malignancy? will check iron studies and stool guaiac (6) DVT prophylaxis Comment: for now still with therapeutic INR Status and Disposition: inpatient
[2019-03-07] MEDS ORDERED: Phytonadione 5 mg in 50 mL NS over 30 min IV ONE (11:00)
--- NOTE | 2019-03-07 13:14 | CONS ---
CC: Dr. Art Dee; Dr. Jason Licona; Dr. Lan; Ashutosh Renee MD CONSULTATION REPORT: DATE OF CONSULT: 03/07/19 CHIEF COMPLAINT: Abdominal pain. HISTORY OF PRESENT ILLNESS: I was asked to this pleasant 83-year-old female by Dr. Finley. He wa s consulted by phone last night as the patient was being admitted by the Medical Service. She had so me chills and mild abdominal discomfort on Thursday, it only lasted few hours, and then Thursday while in [facility] began to have shaking chills and fever, came into the emergency room. Workup there reveale d fever of 102.1, tachycardia and leukocytosis of 12.5. She had a CT scan of the abdomen and pelvis, which showed an inflammatory process in the cecum. No evidence for obvious appendicitis or appendix was seen. She was placed on broad-spectrum antibiotics, brought into the hospital. Apparently, she may have had an appendectomy during a tubal ligation years ago. Her last colonoscopy was at least 5 years ago that she can recall here at the hospital. Prior to admission, she had complained of some problems with constipation and straining. No blood per rectum. Her appetite is not that great. PAST MEDICAL HISTORY: Chronic AFib, sick sinus syndrome, hypothyroidism, ankylosing spondylitis , Pa rkinson's disease. PAST SURGICAL HISTORY: As above, tubal ligation with question appendectomy during this procedure, ch olecystectomy in 1971, permanent pacemaker placement in 2004. MEDICATIONS: Include: 1. Lasix. 2. Sinemet. 3. Atenolol. 4. Warfarin. 5. Potassium. 6. Levothyroxine. 7. Diltiazem. ALLERGIES: Allergies which gives hives include AMOXICILLIN, AUGMENTIN, KEFLEX, CLARITHROMYCIN, DOXYC YCLINE, MULTAQ, LEVAQUIN, NITROGLYCERIN, and SULFA ANTIBIOTICS, among others listed in a chart. FAMILY HISTORY: Her mother of melanoma at the age of 86. SOCIAL HISTORY: She is here with 3 of her children. She recently lost a child. Former smoker, quit 5 or 6 years ago. No alcohol use. She lives with her daughter. She is listed as DNR/DNI. REVIEW OF SYSTEMS: General: Denies weight loss, change of appetite. HEENT: No changes in vision, hearing, or swallowing. No sore throat. Cardiac: No chest pain. Pulmonary: No cough. GI: No bl ood per rectum. : No hematuria. Skin: No rash. Neuro: No headache or dizziness. Musculoskelet al: No extremity weakness. Psych: No anxiety or depression. PHYSICAL EXAM: General: A pleasant female complaining of being hungry. She is currently afebrile. Her vital signs are stable. HEENT: The sclerae are anicteric. Oral mucosa is pink and moist. Nec k is supple. No JVD. Heart: Irregularly irregular. Lungs are clear anteriorly. Abdomen: Soft, so me fullness in the right lower quadrant and some guarding. Skin: No rash, petechia, or jaundice. E xtremities: Some distal edema, 1 to 2+. Neuro Exam: Grossly intact. No focal motor or sensory defi cits. No palpable inguinal nodes. RADIOLOGIC STUDIES: CT scan as mentioned above with inflammatory process in the cecum. LABORATORY STUDIES: As above mentioned with elevated white blood cell count. IMPRESSION: An 83-year-old female with abdominal pain and cecal inflammatory process. No appendix w as seen on CT scan and there is some history that she likely had it removed during tubal ligation. S he has not had a colonoscopy in 5 years. This may be a secondary to a cecal mass. There is not an ob vious abscess at this time. I spoke with Dr. Wilkins and we reviewed the CT scan together. PLAN/RECOMMENDATIONS: Plan at this point is clear liquid diet, broad-spectrum IV antibiotics, an santos luation after 24 hours allowing anticoagulation to resolve and evaluation of her clinical progress on the antibiotics. Family and the patient were informed that she may potentially need surgery or inva sive intervention. At this point, they would like to proceed with current treatment plan and all que stions were answered. [id number]/[facility] #: [id number]
--- NOTE | 2019-03-07 14:59 | ECHO ---
*[facility]* [place] [address] Fax #: [phone] Transthoracic Echocardiogram Patient: Kavita Weiss Height: 62 in / A 157.5 cm : 1935 Weight: 141.7 lb / Study Date: 03/07/2019 64.4 kg Age: 83 BP: 90 / 38 Gender: F BMI/BSA: 26 kg/m^2 / HR: 58 bpm 1.65 m^2 *Field Agronomist: * Dottie Miller [facility] *Referring Physician: * Jennifer Arana *Reading Physician: * Deshawn Fagan MD Indications: Congestive Heart Failure. History: Atrial fibrillation. Labs, prior tests, procedures, and surgery: Permanent pacemaker system implantation. Conclusions Summary: 1. Left ventricle: Systolic function is at the lower limits of normal. The estimated ejection fraction is 50-55%. 2. Right ventricle: Pacer wire noted in the right ventricle. Systolic pressure is mildly to moderately increased. 3. Ventricular septum: There is abnormal interventricular septal wall motion consistent with an RV pacemaker. 4. Atrial septum: An atrial septal closure device is present. 5. Mitral valve: There is mild to moderate regurgitation. 6. Aortic valve: There is no evidence of stenosis. There is trivial regurgitation. 7. Tricuspid valve: There is mild-moderate regurgitation. 8. Pericardium, extracardiac: There is no significant pericardial effusion. 9. Impressions: The study is unchanged since the study of 02/21/2011. Study data: Transthoracic echocardiogram. Procedure: Transthoracic echocardiography was performed. Image quality was fair. Complete 2D, spectral Doppler, and color flow Doppler. Location: Bedside. Patient status: Inpatient. Patient room number: 445 02. Rhythm: Atrial fibrillation. Findings Left ventricle: The cavity size is normal. Wall thickness is mildly increased. Systolic function is at the lower limits of normal. The estimated ejection fraction is 50-55%. Left ventricular diastolic function parameters are indeterminate. Right ventricle: The cavity size is mildly dilated. Wall thickness is mildly increased. Pacer wire noted in the right ventricle. Systolic function is normal. Systolic pressure is mildly to moderately increased. Ventricular septum: There is abnormal interventricular septal wall motion consistent with an RV pacemaker. Right atrium: The atrium is mildly dilated. Pacer wire noted in right atrium. Atrial septum: A closure device is present. Mitral valve: The leaflets are normal thickness. There is no evidence of stenosis. There is mild to moderate regurgitation. The peak diastolic gradient is 3.4 mm Hg. Aortic valve: The valve is trileaflet. The leaflets are mildly thickened. There is no evidence of stenosis. There is trivial regurgitation. The ratio of LVOT to aortic valve peak velocity is 0.64. The valve area by the peak velocity method is 2.02 cm^2. The valve area index by the peak velocity method is 1.22 cm^2/m^2. The peak systolic gradient is 13.0 mm Hg. Tricuspid valve: The leaflets are normal thickness. There is no evidence of stenosis. There is mild-moderate regurgitation. Pulmonic valve: The leaflets are normal thickness. There is no evidence of stenosis. There is mild regurgitation. The peak systolic gradient is 3.0 mm Hg. Aorta: Aortic arch: The aortic arch is appears normal. The aortic root is not dilated. Pericardium: There is no significant pericardial effusion. Pulmonary arteries: The main pulmonary artery is normal-sized. Systemic veins: Inferior vena cava: The vessel is dilated. The respirophasic diameter changes are blunted (< 50%). Measurements Left ventricle Value Ref Aortic valve Value Ref JOSE, LAX 5.0 cm 3.8 - 5.2 Clark diam, ED 2.0 cm ----- ESD, LAX 3.3 cm 2.2 - 3.5 Peak v, S 1.77 m/sec ----- FS, LAX 33 % 27 - 45 Peak grad, S 13.0 mm Hg ----- PW, ED, LAX (H) 1.1 cm 0.6 - 0.9 WILFRID, Vmax 2.02 cm^2 ----- E', lat clark, TDI (L) 9.8 cm/sec >=10.0 E/e', lat clark, 9 Mitral valve Value Ref TDI Peak E 0.92 m/sec ----- E', med clark, TDI (L) 5.5 cm/sec >=7.0 Decel time 158 ms --- -- E/e', med clark, 17 Peak grad, D 3.4 mm Hg ----- TDI E', avg, TDI 7.7 cm/sec Pulmonic valve Value Ref E/e', avg, TDI 12 <=14 Peak v, S 0.82 m/sec --- -- Peak grad, S 3.0 mm Hg ----- LVOT Value Ref Diam, S 2.00 cm Tricuspid valve Value Ref Area 3.1 cm^2 TR peak v (H) 3 m/sec <=2.8 Peak adele, S 1.14 m/sec Peak RV-RA grad, S 36 mm Hg ----- Peak grad, S 5 mm Hg Aortic root Value Ref Ventricular septum Value Ref Root diam 2.7 cm <3.9 IVS, ED, LAX (H) 1.1 cm 0.6 - 0.9 Ascending aorta Value Ref Right ventricle Value Ref AAo AP diam, S 2.8 cm ----- JOSE, LAX 3.0 cm JOSE minor ax, A4C (H) 3.7 cm 1.9 - 3.5 Aortic arch Value Ref mid Arch diam 2.0 cm ----- Pressure, S 44 mm Hg Decending aorta Value Ref Left atrium Value Ref Mendy peak adele 0.6 m/sec ----- AP dim, ES (H) 4.50 cm 2.70 - 3.80 Pulmonary artery Value Ref ML dim, A4C 5.1 cm Pressure, S 41.0 mm Hg ----- SI dim, A4C 6.3 cm Vol/bsa, ES, A/L (H) 73 ml/m^2 16 - 34 Inferior vena cava Value Ref Diam 2.5 cm ----- Right atrium Value Ref SI dim, ES (H) 5.6 cm 3.4 - 5.3 ML dim, ES, A4C 4.3 cm 2.6 - 4.4 Estimated RAP 8 mm Hg Legend: (L) and (H) khadar values outside specified reference range. Prepared and electronically signed by Deshawn Fagan MD 03/07/2019 14:58
[2019-03-07] MEDS: D5LR 1000 ML BAG* 1,000 ML IV SCH (15:28)
[2019-03-07] MEDS: KCL 20 MEQ/100 ML IVPREMIX* 20 MEQ/100 ML BAG IV SCH ×2 (15:33→19:32)
[2019-03-07] MEDS: cefTRIAXone(*) 2 GM in NS 0.9% 100 ML* 100 ML IVPB SCH (22:59)
[2019-03-08] MEDS: metroNIDAZOLE IV 500 MG/100ML* 500 MG/100 ML BAG IVPB SCH ×3 (05:43→20:40)
[2019-03-08] MEDS: Levothyroxine TAB* 88 MCG TAB PO SCH (05:43)
[2019-03-08 06:29] LABS: ABS Basophils 0.1 10^3/ul (0-0.2); ABS Eosinophils 0.1 10^3/ul (0-0.6); ABS Lymphocytes 0.4 10^3/ul (1.0-4.8); ABS Monocytes 0.8 10^3/ul (0-0.8); ABS Neutrophils 7.4 10^3/ul (1.5-7.7); Hematocrit 25 % (35-47); Lymphocyte % 4.6 %; Mean Corpuscular HGB Conc 32 g/dL (31-36); Mean Corpuscular Hemoglobin 27 pg (27-31); Mean Corpuscular Volume 83 fL (80-97); Mean Platelet Volume 7.4 fL (7.4-10.4); Platelet Count 390 10^3/uL (150-450); Red Blood Count 3.03 10^6 /uL (3.70-4.87); Red Cell Distribution Width 17 % (10.5-15); White Blood Count 8.8 10^3/uL (3.5-10.8)
[2019-03-08 06:35] LABS: INR 1.71 (0.82-1.09)
[2019-03-08 06:42] LABS: Anion Gap 5 mmol/L (2-11); Blood Urea Nitrogen 11 mg/dL (6-24); CO2 Carbon Dioxide 24 mmol/L (22-32); Calcium 8.4 mg/dL (8.6-10.3); Chloride 110 mmol/L (101-111); EGFR African American 113.1 (>60); EGFR Non-African American 93.4 (>60); Glucose 106 mg/dL (70-100); Potassium 3.8 mmol/L (3.5-5.0); Sodium 139 mmol/L (135-145)
[2019-03-08 06:43] LABS: Total Iron Binding Capacity 252 mcg/dL (250-450); Transferrin 180 mg/dL (203-362)
[2019-03-08 07:06] LABS: Ferritin 60.5 ng/mL (11-307)
[2019-03-08 07:09] LABS: Folate 18.39 ng/mL (>3.99)
[2019-03-08 07:26] LABS: % Iron Saturation 7 % (15-55); Iron < 17 ug/dL (50-212)
[2019-03-08] MEDS: Atenolol TAB* 50 MG PO SCH ×2 (08:52→20:47)
[2019-03-08] MEDS: Carbidopa/Levodop 25/100 MG TAB(*) PO SCH ×3 (08:52→20:45)
[2019-03-08] MEDS: Potassium Chlor TAB* 10 MEQ TAB.ER PO SCH (08:52)
[2019-03-08] MEDS: Pantoprazole IV* 40 MG IV SCH (08:52)
[2019-03-08] MEDS: D5LR 1000 ML BAG* 1,000 ML IV SCH (08:53)
[2019-03-08] MEDS ORDERED: Diltiazem TAB* 60 MG PO SCH (09:00)
[2019-03-08] MEDS: Ferrous Sulfate TAB* 325 MG PO SCH (11:50)
--- NOTE | 2019-03-08 17:27 | PN ---
Progress Note - Progress Note Date of Service: 03/08/19 Note: Surgery Progress: (patient seen this a.m. ~ 1000) S: No c/o of pain or N/V. Had BM yesterday as well as flatus. Jamia diet and would like to move up. O: Vital Signs - 8 hr 03/08/19 03/08/19 10:58 14:58 Temperature 97.4 F 97.0 F Pulse Rate 86 70 Respiratory 16 16 Rate Blood Pressure 111/54 102/46 (mmHg) O2 Sat by Pulse 93 100 Oximetry Intake and Output Last 24 Hours 03/06/19 03/07/19 03/08/19 03/09/19 06:59 06:59 06:59 06:59 Intake Total 1700 2519 1240 Output Total 850 700 Balance 850 1819 1240 Weight 142 lb 4.8 oz 147 lb 14.4 oz Intake: IV Fluids 1500 1078 45 NS and antibiotics 50 400 mag 678 metronidazole 45 IVPB 100 151 205 NS and antibiotics 100 mag 151 metronidazole 205 Oral 100 1290 990 Output: Urine 850 700 Other: Estimated Void Medium Medium # Bowel Movements 1 2 Estimated Stool Amount Large Small # Voids 1 2 Gen: appears comfortable, NAD Heart: reg Lungs: clear Abd: +BS; mildly distended (she states her "usual"); soft; very minimal tenderness to deep palp in the RLQ/pelvis; no guarding or rebound; no masses Labs: Laboratory Tests 03/08/19 05:50 WBC 8.8 Hgb 8.0 L chemistries ok A: typhlitis, improving w/ abx P: cont IV abx; adv diet as jamia; Dr. Renee will see 03/09 (I spoke w/ him this a.m.)
[2019-03-08] MEDS ORDERED: traZODone TAB* 50 MG TAB PO PRN (20:00)
--- NOTE | 2019-03-08 20:06 | PN ---
Subjective Date of Service: 03/08/19 Interval History: Remains afebrile, WBC improved. Pt reports difficulty sleeping overnight due to interruptions. Also states her abdominal pain is improved. She has increased appetite and has had 2 BMs today - not loose. Surgery does not think intervention, other than abx, indicated at this time. Likely will DC to f/u with GI after more improvement with IV abx. Objective Active Medications: Ascorbic Acid (Vitamin C Tab*) 500 mg PO DAILY [facility] Atenolol (Tenormin Tab*) 50 mg PO BID [facility] Last Admin: 03/08/19 08:52 Dose: 50 mg Carbidopa/Levodopa (Sinemet 25/100 Tab(*)) 1 tab PO TID [facility] Last Admin: 03/08/19 13:09 Dose: 1 tab Ferrous Sulfate (Ferrous Sulfate Tab*) 325 mg PO DAILY [facility] Last Admin: 03/08/19 11:50 Dose: 325 mg Furosemide (Lasix Tab*) 60 mg PO QAM [facility] Metronidazole/Sodium Chloride (Flagyl 500 Mg Ivpb*) 500 mg in 100 mls @ 100 mls /hr IVPB Q8H [facility] Last Admin: 03/08/19 11:50 Dose: 100 mls/hr Ceftriaxone Sodium 2 gm/ (Sodium Chloride) 100 mls @ 200 mls/hr IVPB Q24H [facility] Last Admin: 03/07/19 22:59 Dose: 200 mls/hr Levothyroxine Sodium (Synthroid Tab*) 88 mcg PO DAILY@0600 [facility] Last Admin: 03/08/19 05:43 Dose: 88 mcg Nft: Carboxymethylcellulo se Sodium [Refresh Tears] 1 Drop 1 drop BOTH EYES .SEE INSTRUCTIONS PRN PRN Reason: DRY EYE Pantoprazole Sodium (Protonix Iv*) 40 mg IV DAILY [facility] Last Admin: 03/08/19 08:52 Dose: 40 mg Potassium Chloride (Klor Con Er Tab*) 10 meq PO DAILY [facility] Last Admin: 03/08/19 08:52 Dose: 10 meq Trazodone HCl (Desyrel Tab*) 50 mg PO BEDTIME PRN PRN Reason: SLEEP Warfarin Sodium (Coumadin Tab(*)) 2.5 mg PO SEE INSTRUCTIONS [facility]; Protocol Vital Signs - 8 hr 03/08/19 14:58 Temperature 97.0 F Pulse Rate 70 Respiratory 16 Rate Blood Pressure 102/46 (mmHg) O2 Sat by Pulse 100 Oximetry Oxygen Devices in Use Now: None Appearance: NAD, nontoxic, alert and interactive Ears/Nose/Mouth/Throat: Clear Oropharnyx, Mucous Membranes Moist Neck: NL Appearance and Movements; NL JVP Respiratory: - - crackles at bases Cardiovascular: - - irregular Abdominal: - - improved ttp in RLQ, no guarding or rebound, normoactive bs Lymphatic: No Cervical Adenopathy Extremities: No Clubbing, Cyanosis, - - trace edema over ankles b/l Result Diagrams: 03/08/19 05:50 03/08/19 05:50 Microbiology and Other Data: Microbiology 03/06/19 18:43 Aerobic Blood Culture - Preliminary Blood Venous No Growth Day 2 Anaerobic Blood Culture - Preliminary No Growth Day 2 03/06/19 18:43 Aerobic Blood Culture - Preliminary Blood Venous No Growth Day 2 Anaerobic Blood Culture - Final Clostridium Septicum 03/08/19 06:50 Stool Occult Blood (TARA) - Final Stool 03/06/19 20:15 Urine Culture - Final Urine Assess/Plan/Problems-Billing Assessment: 83W with chronic a. fib on Coumadin, Parkinsons, no known CHF but on Lasix 60 mg daily, pacer for SSS, presents with RLQ abd pain and inflammatory change in cecum (? if pt has an appendix since she was told it was removed during tubal ligation "years ago"). - Patient Problems (1) Colitis Comment: with sepsis at admission, CT shows no appendix visualized and inflammation of cecum (? fluid collection-Dr. Renee to d/w radiology) cont Ceftriaxone/Flagyl advance diet at tolerated (2) CHF (congestive heart failure) Comment: acute, pt has no h/o CHF but on Lasix 60 at home; got Lasix 40 mg IV in ED, then hypotensive overnight. now s/p gentle IVF with some volume overload on exam. - restart home oral Lasix given improved PO and some volume overload on exam - Monitor daily weights and I/Os' Pt reports chronic leg edema that likely related to venous stasis (3) Atrial fibrillation Comment: chronic cont Amiodarone and Atenolol with hold parameters cont warfarin as surgery very unlikely to intervene (4) Anemia Comment: Pt denies melena or BRBPR - could cecal changes be due to malignancy? - start on PO iron once daily with vit C - to f/u with GI as outpatient, possibly will need repeat c-scope (reports normal approx 4-5 years ago) Status and Disposition: inpatient
[2019-03-08] MEDS ORDERED: Warfarin TAB(*) 5 MG PO SCH (21:00)
[2019-03-08] MEDS ORDERED: Warfarin TAB(*) 2.5 MG PO SCH (21:00)
[2019-03-08] MEDS: cefTRIAXone(*) 2 GM in NS 0.9% 100 ML* 100 ML IVPB SCH (23:05)
[2019-03-09] MEDS: metroNIDAZOLE IV 500 MG/100ML* 500 MG/100 ML BAG IVPB SCH ×2 (04:47→12:01)
[2019-03-09 05:51] LABS: ABS Basophils 0.1 10^3/ul (0-0.2); ABS Eosinophils 0.2 10^3/ul (0-0.6); ABS Lymphocytes 0.6 10^3/ul (1.0-4.8); ABS Monocytes 0.7 10^3/ul (0-0.8); ABS Neutrophils 6.3 10^3/ul (1.5-7.7); Eosinophil % 2.5 %; Hematocrit 27 % (35-47); Hemoglobin 8.4 g/dL (12.0-16.0); Lymphocyte % 7.9 %; Mean Corpuscular HGB Conc 31 g/dL (31-36); Mean Corpuscular Hemoglobin 26 pg (27-31); Mean Corpuscular Volume 84 fL (80-97); Mean Platelet Volume 7.6 fL (7.4-10.4); Platelet Count 388 10^3/uL (150-450); Red Blood Count 3.21 10^6 /uL (3.70-4.87); Red Cell Distribution Width 18 % (10.5-15); White Blood Count 7.9 10^3/uL (3.5-10.8)
[2019-03-09 05:55] LABS: INR 1.59 (0.82-1.09)
[2019-03-09 06:20] LABS: BUN/Creatinine Ratio 13.8 (8-20); Calcium 8.6 mg/dL (8.6-10.3); EGFR African American 105.1 (>60); EGFR Non-African American 86.8 (>60); Magnesium 2.2 mg/dL (1.9-2.7); Potassium 3.8 mmol/L (3.5-5.0)
[2019-03-09] MEDS: Levothyroxine TAB* 88 MCG TAB PO SCH (06:30)
[2019-03-09] MEDS ORDERED: Furosemide TAB* 20 MG PO SCH (09:00)
[2019-03-09] MEDS ORDERED: Warfarin TAB(*) 5 MG PO SCH (09:00)
--- NOTE | 2019-03-09 09:23 | PN ---
Subjective Date of Service: 03/09/19 Interval History: Restarted on home furosemide and warfarin - although seems pharmacy canceled my order? Not given last night, unfortunately. Will give this AM. Advanced diet yesterday. Tolerated well. Will switch from IV to PO abx given improvement in infectious parameters. Hypoxia to 85% on walking with PT. No oxygen needed at rest. No IS brought yesterday to patient. Encouraged use today - will monitor volume status and may need more diuresis. Objective Active Medications: Ascorbic Acid (Vitamin C Tab*) 500 mg PO DAILY [facility] Atenolol (Tenormin Tab*) 50 mg PO BID [facility] Last Admin: 03/08/19 20:47 Dose: 50 mg Carbidopa/Levodopa (Sinemet 25/100 Tab(*)) 1 tab PO TID [facility] Last Admin: 03/08/19 20:45 Dose: 1 tab Ferrous Sulfate (Ferrous Sulfate Tab*) 325 mg PO DAILY [facility] Last Admin: 03/08/19 11:50 Dose: 325 mg Furosemide (Lasix Tab*) 60 mg PO QAM [facility] Metronidazole/Sodium Chloride (Flagyl 500 Mg Ivpb*) 500 mg in 100 mls @ 100 mls /hr IVPB Q8H [facility] Last Admin: 03/09/19 04:47 Dose: 100 mls/hr Ceftriaxone Sodium 2 gm/ (Sodium Chloride) 100 mls @ 200 mls/hr IVPB Q24H [facility] Last Admin: 03/08/19 23:05 Dose: 200 mls/hr Levothyroxine Sodium (Synthroid Tab*) 88 mcg PO DAILY@0600 [facility] Last Admin: 03/09/19 06:30 Dose: 88 mcg Nft: Carboxymethylcellulo se Sodium [Refresh Tears] 1 Drop 1 drop BOTH EYES .SEE INSTRUCTIONS PRN PRN Reason: DRY EYE Pantoprazole Sodium (Protonix Iv*) 40 mg IV DAILY [facility] Last Admin: 03/08/19 08:52 Dose: 40 mg Potassium Chloride (Klor Con Er Tab*) 10 meq PO DAILY [facility] Last Admin: 03/08/19 08:52 Dose: 10 meq Trazodone HCl (Desyrel Tab*) 50 mg PO BEDTIME PRN PRN Reason: SLEEP Last Admin: 03/08/19 20:44 Dose: 50 mg Warfarin Sodium (Coumadin Tab(*)) 2.5 mg PO EVERY OTHER DAY [facility]; Protocol Warfarin Sodium (Coumadin Tab(*)) 5 mg PO EVERY OTHER DAY [facility] Vital Signs - 8 hr 03/09/19 03/09/19 03/09/19 03:29 07:47 08:00 Temperature 97.5 F 97.9 F Pulse Rate 75 88 Respiratory 22 16 18 Rate Blood Pressure 114/50 115/61 (mmHg) O2 Sat by Pulse 95 92 Oximetry Oxygen Devices in Use Now: None Appearance: chronically ill appearing eldery woman in no acute distress, nontoxic Ears/Nose/Mouth/Throat: Clear Oropharnyx, Mucous Membranes Moist Neck: NL Appearance and Movements; NL JVP Respiratory: Clear to Auscultation Cardiovascular: - - irregular Abdominal: - - ttp over RLQ, no guarding/rebound Extremities: - - 1+ edema over ankles Result Diagrams: 03/09/19 05:07 03/09/19 05:07 Microbiology and Other Data: Microbiology 03/06/19 18:43 Aerobic Blood Culture - Preliminary Blood Venous No Growth Day 2 Anaerobic Blood Culture - Preliminary No Growth Day 2 03/06/19 18:43 Aerobic Blood Culture - Preliminary Blood Venous No Growth Day 2 Anaerobic Blood Culture - Final Clostridium Septicum 03/08/19 06:50 Stool Occult Blood (TARA) - Final Stool 03/06/19 20:15 Urine Culture - Final Urine Assess/Plan/Problems-Billing Assessment: 83W with chronic afib on Coumadin, Parkinsons, no known CHF but on Lasix 60 mg daily, pacer for SSS, presents with RLQ abd pain and inflammatory change in cecum (? if pt has an appendix since she was told it was removed during tubal ligation "years ago"). - Patient Problems (1) Colitis Comment: with sepsis at admission, CT shows no appendix visualized and inflammation of cecum. - DC IV Ceftriaxone/Flagyl (03/06 - ) and switch to PO cefdinir/Flagyl - pt has signficant antibiotics allergies - f/u with GI outpatient (2) CHF (congestive heart failure) Comment: acute, pt has no h/o CHF but on Lasix 60 at home; got Lasix 40 mg IV in ED, then hypotensive overnight. now s/p gentle IVF with some volume overload on exam. - restart home oral Lasix given improved PO and some volume overload on exam - Monitor daily weights and I/Os - repeat CXR given hypoxia on ambulation - may need more IV diuresis; also given IS Pt reports chronic leg edema that likely related to venous stasis (3) Atrial fibrillation Comment: chronic cont Amiodarone and Atenolol with hold parameters cont warfarin as surgery very unlikely to intervene (4) Anemia Comment: Pt denies melena or BRBPR - could cecal changes be due to malignancy? - start on PO iron once daily with vit C - to f/u with GI as outpatient, possibly will need repeat c-scope (reports normal approx 4-5 years ago) Status and Disposition: May DC 03/10 if tolerating PO abx and can walk without hypoxia.
[2019-03-09] MEDS ORDERED: Warfarin TAB(*) 5 MG PO ONE (10:00)
[2019-03-09] MEDS: Potassium Chlor TAB* 10 MEQ TAB.ER PO SCH (10:00)
[2019-03-09] MEDS: Pantoprazole IV* 40 MG IV SCH (10:00)
[2019-03-09] MEDS: Ascorbic Acid TAB* 500 MG PO SCH (10:01)
[2019-03-09] MEDS: Carbidopa/Levodop 25/100 MG TAB(*) PO SCH ×3 (10:01→20:32)
[2019-03-09] MEDS: Ferrous Sulfate TAB* 325 MG PO SCH (10:01)
[2019-03-09] MEDS: Atenolol TAB* 50 MG PO SCH ×2 (10:02→20:32)
--- NOTE | 2019-03-09 11:46 | PN ---
Progress Note - Progress Note Date of Service: 03/09/19 SOAP: Subjective: [] no pain, tolerating diet, had bm today Objective: [] Temp Pulse Resp BP Pulse Ox 97.9 F 88 18 115/61 92 03/09/19 07:47 03/09/19 07:47 03/09/19 08:00 03/09/19 07:47 03/09/19 07:47 Laboratory Last Values WBC 7.9 10^3/uL (3.5-10.8) 03/09/19 05:07 RBC 3.21 10^6 /uL (3.70-4.87) L 03/09/19 05:07 Hgb 8.4 g/dL (12.0-16.0) L 03/09/19 05:07 Hct 27 % (35-47) L 03/09/19 05:07 MCV 84 fL (80-97) 03/09/19 05:07 MCH 26 pg (27-31) L 03/09/19 05:07 MCHC 31 g/dL (31-36) 03/09/19 05:07 RDW 18 % (10.5-15) H 03/09/19 05:07 Plt Count 388 10^3/uL (150-450) 03/09/19 05:07 MPV 7.6 fL (7.4-10.4) 03/09/19 05:07 Neut % (Auto) 79.5 % 03/09/19 05:07 Lymph % (Auto) 7.9 % 03/09/19 05:07 Harmon % (Auto) 9.4 % 03/09/19 05:07 Eos % (Auto) 2.5 % 03/09/19 05:07 Baso % (Auto) 0.7 % 03/09/19 05:07 Absolute Neuts (auto) 6.3 10^3/ul (1.5-7.7) 03/09/19 05:07 Absolute Lymphs (auto) 0.6 10^3/ul (1.0-4.8) L 03/09/19 05:07 Absolute Monos (auto) 0.7 10^3/ul (0-0.8) 03/09/19 05:07 Absolute Eos (auto) 0.2 10^3/ul (0-0.6) 03/09/19 05:07 Absolute Basos (auto) 0.1 10^3/ul (0-0.2) 03/09/19 05:07 Absolute Nucleated RBC 0.0 10^3/ul 03/09/19 05:07 Nucleated RBC % 0.0 03/09/19 05:07 INR (Anticoag Therapy) 1.59 (0.82-1.09) H 03/09/19 05:07 Sodium 139 mmol/L (135-145) 03/09/19 05:07 Potassium 3.8 mmol/L (3.5-5.0) 03/09/19 05:07 Chloride 109 mmol/L (101-111) 03/09/19 05:07 Carbon Dioxide 24 mmol/L (22-32) 03/09/19 05:07 Anion Gap 6 mmol/L (2-11) 03/09/19 05:07 BUN 9 mg/dL (6-24) 03/09/19 05:07 Creatinine 0.65 mg/dL (0.51-0.95) 03/09/19 05:07 Est GFR ( Amer) 105.1 (>60) 03/09/19 05:07 Est GFR (Non-Af Amer) 86.8 (>60) 03/09/19 05:07 BUN/Creatinine Ratio 13.8 (8-20) 03/09/19 05:07 Glucose 98 mg/dL (70-100) 03/09/19 05:07 Lactic Acid 1.4 mmol/L (0.5-2.0) 03/06/19 18:43 Calcium 8.6 mg/dL (8.6-10.3) 03/09/19 05:07 Magnesium 2.2 mg/dL (1.9-2.7) 03/09/19 05:07 Iron < 17 ug/dL (50-212) L 03/08/19 05:50 TIBC 252 mcg/dL (250-450) 03/08/19 05:50 % Saturation 7 % (15-55) L 03/08/19 05:50 Unsat Iron Binding < 237 ug/dL 03/08/19 05:50 Transferrin 180 mg/dL (203-362) L 03/08/19 05:50 Ferritin 60.5 ng/mL (11-307) 03/08/19 05:50 Total Bilirubin 0.40 mg/dL (0.2-1.0) 03/06/19 18:43 AST 9 U/L (13-39) L 03/06/19 18:43 ALT 4 U/L (7-52) L 03/06/19 18:43 Alkaline Phosphatase 70 U/L (34-104) 03/06/19 18:43 Total Creatine Kinase 31 U/L (10-223) 03/06/19 18:43 Troponin I 0.01 ng/mL (<0.04) 03/06/19 18:43 C-Reactive Protein 134.36 mg/L (<8.01) H 03/06/19 18:43 B-Natriuretic Peptide 590 pg/mL (<=100) H 03/06/19 18:43 Total Protein 7.0 g/dL (6.4-8.9) 03/06/19 18:43 Albumin 3.6 g/dL (3.2-5.2) 03/06/19 18:43 Globulin 3.4 g/dL (2-4) 03/06/19 18:43 Albumin/Globulin Ratio 1.1 (1-3) 03/06/19 18:43 Vitamin B12 606 pg/mL (180-914) 03/08/19 05:50 Folate 18.39 ng/mL (>3.99) 03/08/19 05:50 TSH 7.82 mcIU/mL (0.34-5.60) H 03/06/19 18:43 Urine Color Straw 03/06/19 20:15 Urine Appearance Cloudy 03/06/19 20:15 Urine pH 5.0 (5-9) 03/06/19 20:15 Ur Specific [place] 1.009 (1.010-1.030) L 03/06/19 20:15 Urine Protein Negative (Negative) 03/06/19 20:15 Urine Ketones Negative (Negative) 03/06/19 20:15 Urine Blood 1+ (Negative) A 03/06/19 20:15 Urine Nitrate Negative (Negative) 03/06/19 20:15 Urine Bilirubin Negative (Negative) 03/06/19 20:15 Urine Urobilinogen Negative (Negative) 03/06/19 20:15 Ur Leukocyte Esterase Negative (Negative) 03/06/19 20:15 Urine WBC (Auto) Trace(0-5/hpf) (Absent) 03/06/19 20:15 Urine RBC (Auto) Trace(0-2/hpf) (Absent) 03/06/19 20:15 Ur Squamous Epith Cells Present (Absent) A 03/06/19 20:15 Urine Bacteria Absent (Absent) 03/06/19 20:15 Hyaline Casts Present (Absent) A 03/06/19 20:15 Urine Glucose Negative (Negative) 03/06/19 20:15 Influenza A (Rapid) Negative (Negative) 03/06/19 18:10 Influenza B (Rapid) Negative (Negative) 03/06/19 18:10 abdomen soft non distended, tender to deep palpation only-significant improvement Assessment: []colitis, resolving/improving Plan: []continue same, po abx, fu with me in office after discharge- will need colonoscopy approx 4 weeks
[2019-03-09] MEDS: traZODone TAB* 50 MG TAB PO SCH (20:33)
[2019-03-09] MEDS: metroNIDAZOLE * 500 MG TABLET PO SCH (20:33)
[2019-03-09] MEDS: Cefdinir cap* 300 MG CAP PO SCH (20:33)
[2019-03-09] MEDS ORDERED: KCL 20 MEQ/100 ML IVPREMIX* 20 MEQ/100 ML BAG IV ONE (22:07)
[2019-03-10] MEDS ORDERED: Furosemide IV* 10 MG/ML VIAL (40 MG) IV ONE (06:00)
[2019-03-10 06:28] LABS: Hematocrit 27 % (35-47); Hemoglobin 8.6 g/dL (12.0-16.0); Mean Corpuscular HGB Conc 32 g/dL (31-36); Mean Corpuscular Hemoglobin 26 pg (27-31); Mean Corpuscular Volume 83 fL (80-97); Mean Platelet Volume 7.3 fL (7.4-10.4); Platelet Count 388 10^3/uL (150-450); Red Blood Count 3.27 10^6 /uL (3.70-4.87); Red Cell Distribution Width 17 % (10.5-15); White Blood Count 6.6 10^3/uL (3.5-10.8)
[2019-03-10 06:33] LABS: INR 1.72 (0.82-1.09)
[2019-03-10] MEDS: Levothyroxine TAB* 88 MCG TAB PO SCH (06:45)
[2019-03-10 06:48] LABS: BUN/Creatinine Ratio 14.3 (8-20); C Reactive Protein 107.5 mg/L (<8.01); Calcium 8.5 mg/dL (8.6-10.3); EGFR African American 96.5 (>60); EGFR Non-African American 79.7 (>60); Potassium 4.1 mmol/L (3.5-5.0)
[2019-03-10] MEDS: Potassium Chlor TAB* 10 MEQ TAB.ER PO SCH (08:19)
[2019-03-10] MEDS: Carbidopa/Levodop 25/100 MG TAB(*) PO SCH ×3 (08:19→21:12)
[2019-03-10] MEDS: Atenolol TAB* 50 MG PO SCH ×2 (08:20→21:12)
[2019-03-10] MEDS: Ferrous Sulfate TAB* 325 MG PO SCH (08:20)
[2019-03-10] MEDS: Cefdinir cap* 300 MG CAP PO SCH ×2 (08:20→21:12)
[2019-03-10] MEDS: Ascorbic Acid TAB* 500 MG PO SCH (08:20)
[2019-03-10] MEDS: metroNIDAZOLE * 500 MG TABLET PO SCH ×3 (08:21→21:12)
--- NOTE | 2019-03-10 09:29 | PN ---
Subjective Date of Service: 03/10/19 Interval History: Will get furosemide 40mg IV x 1 today given pulm edema on CXR and hypoxia on ambulation. Monitor BP closely given previous hypotension after diuresis ( although that was also on day of presentation with sepsis). Switched to PO antibiotics yesterday. Tolerating advanced diet. CRP decreasing. INR nearing goal. GI to see patient today. Clostridium septicum growing in anaerobic bottle. Objective Active Medications: Ascorbic Acid (Vitamin C Tab*) 500 mg PO DAILY [facility] Last Admin: 03/10/19 08:20 Dose: 500 mg Atenolol (Tenormin Tab*) 50 mg PO BID [facility] Last Admin: 03/10/19 08:20 Dose: 50 mg Carbidopa/Levodopa (Sinemet 25/100 Tab(*)) 1 tab PO TID [facility] Last Admin: 03/10/19 08:19 Dose: 1 tab Cefdinir (Cefdinir Cap*) 300 mg PO BID [facility] Last Admin: 03/10/19 08:20 Dose: 300 mg Ferrous Sulfate (Ferrous Sulfate Tab*) 325 mg PO DAILY [facility] Last Admin: 03/10/19 08:20 Dose: 325 mg Levothyroxine Sodium (Synthroid Tab*) 88 mcg PO DAILY@0600 [facility] Last Admin: 03/10/19 06:45 Dose: 88 mcg Metronidazole (Flagyl) 500 mg PO TID [facility] Last Admin: 03/10/19 08:21 Dose: 500 mg Nft: Carboxymethylcellulo se Sodium [Refresh Tears] 1 Drop 1 drop BOTH EYES .SEE INSTRUCTIONS PRN PRN Reason: DRY EYE Potassium Chloride (Klor Con Er Tab*) 10 meq PO DAILY [facility] Last Admin: 03/10/19 08:19 Dose: 10 meq Trazodone HCl (Desyrel Tab*) 50 mg PO BEDTIME [facility] Last Admin: 03/09/19 20:33 Dose: 50 mg Warfarin Sodium (Coumadin Tab(*)) 2.5 mg PO EVERY OTHER DAY@1700 [facility]; Protocol Warfarin Sodium (Coumadin Tab(*)) 5 mg PO EVERY OTHER DAY@1700 [facility] Vital Signs - 8 hr 03/10/19 03/10/19 07:25 07:52 Temperature 98.0 F Pulse Rate 92 Respiratory 20 18 Rate Blood Pressure 103/57 (mmHg) O2 Sat by Pulse 95 Oximetry Oxygen Devices in Use Now: None Appearance: chronically ill appearing, pleasant and NAD Respiratory: Clear to Auscultation Cardiovascular: RRR Abdominal: No Hepatosplenomegaly, - - mild ttp over RLQ, no guarding/rebound Extremities: No Clubbing, Cyanosis, - - 1+ edema fci up shins Skin: No Rash or Ulcers Neurological: Alert and Oriented x 3 Result Diagrams: 03/10/19 06:13 03/10/19 06:10 Microbiology and Other Data: Microbiology 03/06/19 18:43 Aerobic Blood Culture - Preliminary Blood Venous No Growth Day 2 Anaerobic Blood Culture - Preliminary No Growth Day 2 03/06/19 18:43 Aerobic Blood Culture - Preliminary Blood Venous No Growth Day 2 Anaerobic Blood Culture - Final Clostridium Septicum 03/08/19 06:50 Stool Occult Blood (TARA) - Final Stool 03/06/19 20:15 Urine Culture - Final Urine Assess/Plan/Problems-Billing Assessment: 83W with chronic afib on Coumadin, Parkinsons, no known CHF but on Lasix 60 mg daily, pacer for SSS, presents with RLQ abd pain and inflammatory change in cecum (? if pt has an appendix since she was told it was removed during tubal ligation "years ago"). - Patient Problems (1) Colitis Comment: with sepsis at admission, BCx with Clostridium septicum; CT shows no appendix visualized and inflammation of cecum. - IV Ceftriaxone/Flagyl (03/06 - 03/09); PO cefdinir/Flagyl (03/09 - ) - pt has signficant antibiotics allergies - appreciate GI consult - planned for c-scope tomorrow (2) CHF (congestive heart failure) Comment: Acute, pt has no h/o CHF but on Lasix 60 at home - restart home oral Lasix given improved PO and some volume overload on exam - Monitor daily weights and I/Os - now off O2 (3) Atrial fibrillation Comment: chronic cont Amiodarone and Atenolol with hold parameters cont warfarin as surgery very unlikely to intervene (4) Anemia Comment: Pt denies melena or BRBPR - could cecal changes be due to malignancy? - start on PO iron once daily with vit C - GI to scope tomorrow Status and Disposition: May DC 03/10 if tolerating PO abx and can walk without hypoxia.
[2019-03-10] MEDS ORDERED: Bisacodyl EC TAB* 5 MG PO ONE (16:00)
[2019-03-10] MEDS ORDERED: Magnesium CITRATE* 300 ML BTL PO ONE ×2 (16:00→18:00)
[2019-03-10] MEDS: Warfarin TAB(*) 2.5 MG PO SCH (17:40)
--- NOTE | 2019-03-10 19:32 | CONS ---
CC: Dr. Art Dee * CONSULTATION REPORT: DATE OF CONSULT: 03/10/19 REQUESTING PHYSICIAN: Dr. Maryam Alcocer. PRIMARY CARE PHYSICIAN: Dr. Art Dee. REASON FOR CONSULTATION: Abnormal CT. HISTORY OF PRESENT ILLNESS: This is a very pleasant 83-year-old female with a past medical history of chronic AFib, tachybrady, status post pacemaker placement and Parkinson's disease, who presented with intermittent right lower quadrant abdominal pain, cramping, which then persisted to a chills and rigors at home a day prior to admission. With the shaking chills, she actually had a fall at home without loss of consciousness. She was noted to have a fever of 102 and was tachycardic and presented to the emergency room. She had a CT of the abdomen and pelvis that demonstrated an irregular, thick-walled cecum with pericecal inflammatory stranding and the differential was infectious, inflammatory, versus tumor. She admits to some dyspnea on exertion. Denies any orthopnea or PND. She denies any black or blood in the stool. Normally, she is a little bit constipated, but admits to few episodes of diarrhea yesterday. Her bowels have since normalized today. She admits to some subjective weight loss at home, but is not able to give a number. She states that she has not been hungry and her appetite has been poor. Denies any dysphagia or odynophagia. No heartburn or reflex. No abdominal pain at this current time. Remainder of the 14-point review of system is grossly negative. PAST MEDICAL HISTORY: Chronic AFib, sick sinus syndrome, hypothyroidism, pacemaker placement, ankylosing spondylitis, Parkinson's disease. PAST SURGICAL HISTORY: Tubal ligation, cholecystectomy, pacemaker placement, ASD closure, and colonoscopy in 2008. MEDICATIONS: 1. Lasix. 2. Sinemet. 3. Atenolol. 4. Warfarin. 5. Potassium chloride. 6. Levothyroxine. 7. Diltiazem. ALLERGIES: AMOXICILLIN/CLAVULANIC ACID, KEFLEX, CLARITHROMYCIN, DOXYCYCLINE, MULTAQ, LEVAQUIN, NITROGLYCERIN, SULFA ANTIBIOTICS, PROPAFENONE. FAMILY HISTORY: Maternal melanoma. SOCIAL HISTORY: Prior smoker, quit in 1972, no alcohol use. 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 Medical surrogate is Daphnie Greenberg, the daughter. REVIEW OF SYSTEMS: Remainder of the 14-point review of systems is grossly negative. PHYSICAL EXAM: Vital Signs: Blood pressure is 118/65, pulse is 83, respiratory rate is 20, she is 96% on room air, temperature is 98.4. In general , she is chronically ill appearing, alert, no acute distress. HEENT: Atraumatic, normo-cephalic. Pupils equal, round, reactive to light. Extraocular movements are intact. Sclerae anicteric. Conjunctivae are pink. Neck: Supple. Lungs: Trace rales at the bases, fair effort. Cardiovascular: Irregularly regular. S1, S2. Abdomen: Soft, trace tenderness to palpation in the right lower quadrant. No guarding or rebound. Bowel sounds are positive. Extremities: 1+ edema bilaterally. Neurologic: Moving all extremities. Skin: Without lesions or rashes. Psych: Appropriate mood and affect. DIAGNOSTIC STUDIES/LAB DATA: Hemoglobin 8.6, MCV 83, platelet count of 388. INR 1.72. Creatinine 0.70, BUN is 10. CRP is 107. Bilirubin 0.4. AST 9, ALT 4. She had a CT of the abdomen and pelvis on 03/06/19 that demonstrated irregular, thick- walled cecum, with pericecal inflammatory stranding. A small- to-moderate right pleural effusion and diverticulosis. On 03/10/19, her blood culture resulted Clostridium septicum. Stool occult blood testing was positive. ASSESSMENT AND PLAN: This is an 83-year-old female with abnormal CAT scan and Clostridium septicum bacteremia. RECOMMENDATIONS: 1. Abnormal CAT scan. High suspicion for a possible cecal mass given the CAT scan findings with the addition of Clostridium septicum, which is associated with colonic malignancies. Her last colonoscopy was 10 years ago. She has admitted to some recent worsening of constipation; however, bowels seemed to have normalized at this point. She is afebrile. Her pain is much improved. We discussed the risks, benefits, and alternatives with risk not limited to perforation, need for emergent surgery, bleeding, infection, and cardiopulmonary issues with the anesthesia in terms of proceeding with colonoscopy. She is agreeing to proceeding. She ultimately may decide again surgery if this is the colonic mass, but would like to keep her options open and is potentially opening to medical therapy, pending results. We will plan on inpatient colonoscopy on 03/11/19. This was discussed at bedside with the daughter as well. All questions were answered and they would like to proceed as outlined. 2. Normocytic anemia, relatively new. Her baseline was around 11.9 for the last few years; now is around 8.6 with no gross evidence of hematochezia or melena. We will plan on colonoscopy to evaluate. 3. On anticoagulation. I have discussed that we will not be able remove large polyps or lesions, but will be able obtain biopsies given her INR therapy. [id number]/[facility] #: [id number] [facility]ITALJoleen
[2019-03-10] MEDS: traZODone TAB* 50 MG TAB PO SCH (21:12)
[2019-03-11 05:58] LABS: INR 1.75 (0.82-1.09)
[2019-03-11 06:18] LABS: BUN/Creatinine Ratio 15.6 (8-20); Calcium 8.2 mg/dL (8.6-10.3); EGFR Non-African American 88.4 (>60); Magnesium 2.8 mg/dL (1.9-2.7); Potassium 3.8 mmol/L (3.5-5.0)
[2019-03-11] MEDS ORDERED: Magnesium CITRATE* 300 ML BTL PO ONE (08:31)
[2019-03-11] MEDS: Ascorbic Acid TAB* 500 MG PO SCH ×2 (12:44→17:06)
[2019-03-11] MEDS: Ferrous Sulfate TAB* 325 MG PO SCH ×2 (12:45→17:07)
[2019-03-11] MEDS: Levothyroxine TAB* 88 MCG TAB PO SCH (12:45)
[2019-03-11] MEDS: Atenolol TAB* 50 MG PO SCH ×2 (12:45→20:24)
[2019-03-11] MEDS: Cefdinir cap* 300 MG CAP PO SCH (12:45)
[2019-03-11] MEDS: Furosemide TAB* 20 MG PO SCH ×2 (12:45→17:07)
[2019-03-11] MEDS: Carbidopa/Levodop 25/100 MG TAB(*) PO SCH ×3 (12:45→20:24)
[2019-03-11] MEDS: metroNIDAZOLE * 500 MG TABLET PO SCH ×2 (12:46→17:08)
[2019-03-11] MEDS: Potassium Chlor TAB* 10 MEQ TAB.ER PO SCH ×2 (12:46→17:07)
[2019-03-11] MEDS ORDERED: Midazolam* 1 MG/ML 10 ML VIAL (10 MG) ONE (14:49)
[2019-03-11] MEDS ORDERED: fentaNYL* 50 MCG/ML 2 ML VIAL (100 MCG VIAL) ONE (14:49)
--- NOTE | 2019-03-11 15:42 | PN ---
Subjective Date of Service: 03/11/19 Interval History: Down for c-scope with GI this afternoon. Mass seen on c-scope along with ulcerations. GI recommending to get ID on board and return to IV antibiotics. Patient and family also requesting pall care consult. Surgery already following. Daughters in room on interview are concerned but understand the plan. Patient seems less worried but understands our concerns over malignancy. Seems her son is being buried on Thursday, which is when it was initially thought she would be placed in rehab. Objective Active Medications: Ascorbic Acid (Vitamin C Tab*) 500 mg PO DAILY [facility] Last Admin: 03/11/19 12:44 Dose: Not Given Atenolol (Tenormin Tab*) 50 mg PO BID [facility] Last Admin: 03/11/19 12:45 Dose: Not Given Carbidopa/Levodopa (Sinemet 25/100 Tab(*)) 1 tab PO TID [facility] Last Admin: 03/11/19 12:45 Dose: Not Given Cefdinir (Cefdinir Cap*) 300 mg PO BID [facility] Last Admin: 03/11/19 12:45 Dose: Not Given Ferrous Sulfate (Ferrous Sulfate Tab*) 325 mg PO DAILY [facility] Last Admin: 03/11/19 12:45 Dose: Not Given Furosemide (Lasix Tab*) 60 mg PO DAILY [facility] Last Admin: 03/11/19 12:45 Dose: Not Given Levothyroxine Sodium (Synthroid Tab*) 88 mcg PO DAILY@0600 [facility] Last Admin: 03/11/19 12:45 Dose: Not Given Metronidazole (Flagyl) 500 mg PO TID [facility] Last Admin: 03/11/19 12:46 Dose: Not Given Nft: Carboxymethylcellulo se Sodium [Refresh Tears] 1 Drop 1 drop BOTH EYES .SEE INSTRUCTIONS PRN PRN Reason: DRY EYE Potassium Chloride (Klor Con Er Tab*) 10 meq PO DAILY [facility] Last Admin: 03/11/19 12:46 Dose: Not Given Trazodone HCl (Desyrel Tab*) 50 mg PO BEDTIME [facility] Last Admin: 03/10/19 21:12 Dose: Not Given Warfarin Sodium (Coumadin Tab(*)) 2.5 mg PO EVERY OTHER DAY@1700 [facility]; Protocol Last Admin: 03/10/19 17:40 Dose: 2.5 mg Warfarin Sodium (Coumadin Tab(*)) 5 mg PO EVERY OTHER DAY@1700 [facility] Vital Signs - 8 hr 03/11/19 03/11/19 07:58 12:44 Temperature 98.1 F 97.6 F Pulse Rate 81 72 Respiratory 20 19 Rate Blood Pressure 109/41 107/50 (mmHg) O2 Sat by Pulse 97 98 Oximetry Oxygen Devices in Use Now: None Appearance: more tired appearing, otherwise NAD; alert and interactive Eyes: No Scleral Icterus Ears/Nose/Mouth/Throat: Clear Oropharnyx, Mucous Membranes Moist Respiratory: Clear to Auscultation Cardiovascular: RRR Abdominal: - - ttp over RLQ has resolved, soft, no guarding/rebound Extremities: - - trace ankle edema b/l Skin: No Rash or Ulcers Neurological: Alert and Oriented x 3, NL Sensation, NL Muscle Strength and Tone Result Diagrams: 03/10/19 06:13 03/11/19 05:00 Microbiology and Other Data: Microbiology 03/06/19 18:43 Aerobic Blood Culture - Preliminary Blood Venous No Growth Day 2 Anaerobic Blood Culture - Preliminary No Growth Day 2 03/06/19 18:43 Aerobic Blood Culture - Preliminary Blood Venous No Growth Day 2 Anaerobic Blood Culture - Final Clostridium Septicum 03/08/19 06:50 Stool Occult Blood (TARA) - Final Stool 03/06/19 20:15 Urine Culture - Final Urine Assess/Plan/Problems-Billing Assessment: 83W with chronic afib on Coumadin, Parkinsons, no known CHF but on Lasix 60 mg daily, pacer for SSS, presents with RLQ abd pain and inflammatory change in cecum and possible mass (? if pt has an appendix since she was told it was removed during tubal ligation "years ago"). - Patient Problems (1) Colitis Comment: with sepsis at admission, BCx with Clostridium septicum; CT shows no appendix visualized and inflammation of cecum. C-scope with mass and ulcerations concerning for cancer - no mets on CT. - IV Ceftriaxone/Flagyl (03/06 - 03/09); PO cefdinir/Flagyl (03/09 - 03/11) now back on IV antibiotics - pt has signficant antibiotics allergies; consulting ID - consult to [facility] placed - appreciate GI consult; underwent c-scope 03/11 - f/u CEA (2) CHF (congestive heart failure) Comment: Acute, pt has no h/o CHF but on Lasix 60 at home - restart home oral Lasix given improved PO and some volume overload on exam - Monitor daily weights and I/Os - now off O2 (3) Atrial fibrillation Comment: chronic cont Amiodarone and Atenolol with hold parameters cont warfarin (4) Anemia Comment: Pt denies melena or BRBPR - could cecal changes be due to malignancy? - start on PO iron once daily with vit C - c-scope 03/11 (5) Parkinson disease Comment: controlled on sinemet (6) Hypothyroid Comment: cont levothyroxine 88mcg daily; THS at goal Status and Disposition: on IV abx - inpatient
--- NOTE | 2019-03-11 16:32 | PN ---
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 Remainder of colon with diverticulosis no large or synchronous lesions Rec: Prior to procedure patient stated she did not want to pursue surgery. This lesion with deep ulcerations is higher risk for perforation. Surgery would be ideal but has multiple co-morbidities and she has not wanted to consider prior to this. Her Ct abd/pelv is without clear mets, though CT chest not performed and she does have plural effusion. I discussed with patient and family goals of care would be essential here. I think palliative care delineating goals would be helpful. Discussed with Dr. Alcocer who will consult. Would also get input from ID about antibiotic regimen for C. Septicum, would err on side of prolonged course with deep ulcerations. If full aggressive care desired would get chest CT and surgical consult. Would also check CEA. Jadon Alfaro DO 03/11/19 1010
[2019-03-11] MEDS: Warfarin TAB(*) 5 MG PO SCH (17:07)
[2019-03-11] MEDS: metroNIDAZOLE IV 500 MG/100ML* 500 MG/100 ML BAG IVPB SCH (19:12)
[2019-03-11] MEDS: cefTRIAXone(*) 2 GM in NS 0.9% 100 ML* 100 ML IVPB SCH (19:12)
[2019-03-11] MEDS: traZODone TAB* 50 MG TAB PO SCH (20:24)
--- NOTE | 2019-03-11 21:06 | PRO ---
CC: Dr. Art Dee; Dr. Mingo Lopes; Dr. Aubrey Renee * DATE OF PROCEDURE: 03/11/19 - ROOM #452 INDICATION FOR PROCEDURE: Abnormal CT and Clostridium bacteremia. MEDICATIONS GIVEN: Include 3 mg IV Versed. DESCRIPTION OF PROCEDURE: After the colonoscopy procedure including the risks, benefits, and alternatives with the risks not limited to perforation, surgery, missed lesions, and/or were explained to the patient, written informed consent was obtained. IV medication was given and a rectal exam was performed. The rectal exam was unremarkable. The adult Olympus colonoscope was then inserted into the patient's rectum and advanced very carefully through the entirety of the colon into the cecum. The cecal base was obscured by a large mass roughly half the size of the cecum with associated deep penetrating ulcerations into the mucosa. The procedure was done with minimal air insufflation throughout the colon to minimize trauma. I did take biopsies of the mass. Over the next 7 minutes, the mucosa was carefully inspected. No further synchronous lesions were identified. She had moderate chaney diverticulosis coli throughout, and on return to the rectum, direct views were normal. On retroflexion, grade 1 internal hemorrhoids were appreciated. The scope was then removed from the patient. She tolerated the procedure well. She returned to the recovery room in stable condition. IMPRESSION: 1. Complete colonoscopy to the cecum. 2. Cecal mass with deep penetrating ulcerations, biopsied. 3. Moderate chaney diverticulosis coli. 4. Good prep. RECOMMENDATIONS: Await result of biopsies, likely adenocarcinoma. She is higher risk for potential complications with this mass, with the deep penetrating ulcers that she had along with the Clostridium septicum bacteremia. I discussed the case with her hospitalist Dr. Alcocer, who will reach out to our infectious disease team to see if any further antibiotic therapy is warranted. Prior to the procedure, she noted that she did not have any interest in pursuing surgical therapy if we did find something. I discussed with the patient and her family. They would like input from the palliative care team to define goals of care. She does not have any evidence of distal disease on the CT of the abdomen and pelvis that was done at admission. If she decides to pursue aggressive treatment including potentially surgery, would consider getting a chest CT and oncology and surgical input. We will await results of the biopsies and also palliative care for defining the goals of care with the patient. [id number]/[facility] #: [id number] [facility]
[2019-03-12] MEDS: metroNIDAZOLE IV 500 MG/100ML* 500 MG/100 ML BAG IVPB SCH ×3 (02:45→18:46)
[2019-03-12] MEDS: Levothyroxine TAB* 88 MCG TAB PO SCH (04:06)
[2019-03-12 05:20] LABS: Hematocrit 26 % (35-47); Hemoglobin 8.3 g/dL (12.0-16.0); Mean Corpuscular HGB Conc 32 g/dL (31-36); Mean Corpuscular Hemoglobin 27 pg (27-31); Mean Corpuscular Volume 83 fL (80-97); Mean Platelet Volume 7.3 fL (7.4-10.4); Platelet Count 371 10^3/uL (150-450); Red Blood Count 3.11 10^6 /uL (3.70-4.87); Red Cell Distribution Width 17 % (10.5-15); White Blood Count 6.3 10^3/uL (3.5-10.8)
[2019-03-12 05:20] LABS: INR 1.94 (0.82-1.09)
--- NOTE | 2019-03-12 07:36 | PN ---
Subjective Date of Service: 03/12/19 Interval History: HD # 7 on 03/12 83W with chronic afib on Coumadin, Parkinsons, no known CHF but on Lasix 60 mg daily, pacer for SSS, presents with RLQ abd pain and inflammatory change in cecum and found to have mass on colo and clostridum bacteremia, most concerning for adenocarcinoma Overnight no acute events, VSS Labs: INR 1.9, CEA low This morning seen with family at bedside, she is feeling well, understands may be cancer, and if so, is clear she would never want chemo. She is unsure about surgery, Dr. Renee team is following along. Tolerating diet, no pain, no CP, SOB Objective Active Medications: Ascorbic Acid (Vitamin C Tab*) 500 mg PO DAILY [facility] Last Admin: 03/11/19 17:06 Dose: 500 mg Atenolol (Tenormin Tab*) 50 mg PO BID [facility] Last Admin: 03/11/19 20:24 Dose: 50 mg Carbidopa/Levodopa (Sinemet 25/100 Tab(*)) 1 tab PO TID [facility] Last Admin: 03/11/19 20:24 Dose: 1 tab Ferrous Sulfate (Ferrous Sulfate Tab*) 325 mg PO DAILY [facility] Last Admin: 03/11/19 17:07 Dose: 325 mg Furosemide (Lasix Tab*) 60 mg PO DAILY [facility] Last Admin: 03/11/19 17:07 Dose: 60 mg Ceftriaxone Sodium 2 gm/ (Sodium Chloride) 100 mls @ 200 mls/hr IVPB Q24H [facility] Last Admin: 03/11/19 19:12 Dose: 200 mls/hr Metronidazole/Sodium Chloride (Flagyl 500 Mg Ivpb*) 500 mg in 100 mls @ 100 mls /hr IVPB Q8H [facility] Last Admin: 03/12/19 02:45 Dose: 100 mls/hr Levothyroxine Sodium (Synthroid Tab*) 88 mcg PO DAILY@0600 [facility] Last Admin: 03/12/19 04:06 Dose: 88 mcg Nft: Carboxymethylcellulo se Sodium [Refresh Tears] 1 Drop 1 drop BOTH EYES .SEE INSTRUCTIONS PRN PRN Reason: DRY EYE Potassium Chloride (Klor Con Er Tab*) 10 meq PO DAILY [facility] Last Admin: 03/11/19 17:07 Dose: 10 meq Trazodone HCl (Desyrel Tab*) 50 mg PO BEDTIME [facility] Last Admin: 03/11/19 20:24 Dose: Not Given Warfarin Sodium (Coumadin Tab(*)) 2.5 mg PO EVERY OTHER DAY@1700 [facility]; Protocol Last Admin: 03/10/19 17:40 Dose: 2.5 mg Warfarin Sodium (Coumadin Tab(*)) 5 mg PO EVERY OTHER DAY@1700 [facility] Last Admin: 03/11/19 17:07 Dose: 5 mg Vital Signs - 8 hr 03/11/19 03/12/19 23:35 04:08 Temperature 97.4 F 97.7 F Pulse Rate 61 77 Respiratory 16 16 Rate Blood Pressure 102/46 108/50 (mmHg) O2 Sat by Pulse 96 96 Oximetry Oxygen Devices in Use Now: None Appearance: Pleasant woman in NAD Eyes: No Scleral Icterus, PERRLA Ears/Nose/Mouth/Throat: NL Teeth, Lips, Gums Neck: NL Appearance and Movements; NL JVP, Trachea Midline Respiratory: Symmetrical Chest Expansion and Respiratory Effort, Clear to Auscultation Cardiovascular: NL Sounds; No Murmurs; No JVD, RRR, - - Pacemaker Abdominal: NL Sounds; No Tenderness; No Distention, No Hepatosplenomegaly Lymphatic: No Cervical Adenopathy, No Axillary Adenopathy Extremities: - - Mild non pitting edema Skin: No Rash or Ulcers Neurological: Alert and Oriented x 3 Result Diagrams: 03/12/19 04:27 03/11/19 05:00 Microbiology and Other Data: Microbiology 03/06/19 18:43 Aerobic Blood Culture - Preliminary Blood Venous No Growth Day 2 Anaerobic Blood Culture - Preliminary No Growth Day 2 03/06/19 18:43 Aerobic Blood Culture - Preliminary Blood Venous No Growth Day 2 Anaerobic Blood Culture - Final Clostridium Septicum 03/08/19 06:50 Stool Occult Blood (TARA) - Final Stool 03/06/19 20:15 Urine Culture - Final Urine Assess/Plan/Problems-Billing Assessment: 83W with chronic afib on Coumadin, Parkinsons, no known CHF but on Lasix 60 mg daily, pacer for SSS, presents with RLQ abd pain and inflammatory change in cecum and found to have mass on colo and clostridum bacteremia, most concerning for adenocarcinoma - Patient Problems (1) Cecum mass Current Visit: Yes Status: Acute Code(s): K63.9 - DISEASE OF INTESTINE, UNSPECIFIED SNOMED Code(s): 049250532 Comment: - Path pending, surgery following - Consult to [facility] (2) Colitis Current Visit: Yes Status: Acute Code(s): K52.9 - NONINFECTIVE GASTROENTERITIS AND COLITIS, UNSPECIFIED SNOMED Code(s): 33668461 Comment: - With sepsis at admission, BCx with Clostridium septicum; CT shows no appendix visualized and inflammation of cecum. C-scope with mass and ulcerations concerning for cancer - no mets on CT. - IV Ceftriaxone/Flagyl (03/06 - 03/09); PO cefdinir/Flagyl (03/09 - 03/11) now back on IV antibiotics - pt has signficant antibiotics allergies; consulting ID - appreciate GI consult; underwent c-scope 03/11 - CEA low (3) Anemia Current Visit: Yes Status: Acute Code(s): D64.9 - ANEMIA, UNSPECIFIED SNOMED Code(s): 830889847 Comment: Pt denies melena or BRBPR - could cecal changes be due to malignancy ? - start on PO iron once daily with vit C - c-scope 03/11 (4) Atrial fibrillation Current Visit: Yes Status: Acute Code(s): I48.91 - UNSPECIFIED ATRIAL FIBRILLATION SNOMED Code(s): 15756689 Comment: - chronic - cont Amiodarone and Atenolol with hold parameters - cont warfarin (5) CHF (congestive heart failure) Current Visit: Yes Status: Acute Code(s): I50.9 - HEART FAILURE, UNSPECIFIED SNOMED Code(s): 74207323 Comment: Acute, pt has no h/o CHF but on Lasix 60 at home - restart home oral Lasix given improved PO and some volume overload on exam - Monitor daily weights and I/Os (6) Hypothyroid Current Visit: Yes Status: Acute Code(s): E03.9 - HYPOTHYROIDISM, UNSPECIFIED SNOMED Code(s): 75331548 Comment: cont levothyroxine 88mcg daily; THS at goal (7) Parkinson disease Current Visit: Yes Status: Acute Code(s): G20 - PARKINSON'S DISEASE SNOMED Code(s): 92030497 Comment: - controlled on sinemet (8) DVT prophylaxis Current Visit: Yes Status: Acute Code(s): Z29.9 - ENCOUNTER FOR PROPHYLACTIC MEASURES, UNSPECIFIED SNOMED Code(s): 039301130 Comment: - therapeutic INR Status and Disposition: on IV abx - inpatient
[2019-03-12] MEDS: Potassium Chlor TAB* 10 MEQ TAB.ER PO SCH (08:49)
[2019-03-12] MEDS: Atenolol TAB* 50 MG PO SCH ×2 (08:50→20:40)
[2019-03-12] MEDS: Ferrous Sulfate TAB* 325 MG PO SCH (08:50)
[2019-03-12] MEDS: Ascorbic Acid TAB* 500 MG PO SCH (08:51)
[2019-03-12] MEDS: Carbidopa/Levodop 25/100 MG TAB(*) PO SCH ×3 (08:52→20:40)
[2019-03-12] MEDS: Furosemide TAB* 20 MG PO SCH (08:52)
--- NOTE | 2019-03-12 09:48 | PN ---
Progress Note - Progress Note Date of Service: 03/12/19 Note: Surgery Progress Note S: Patient is doing well post colonoscopy. She has no pain. Tolerating diet. O: Vital Signs - 24 hr 03/11/19 03/11/19 03/11/19 12:44 19:48 23:35 Temperature 97.6 F 97.5 F 97.4 F Pulse Rate 72 67 61 Respiratory 19 18 16 Rate Blood Pressure 107/50 100/40 102/46 (mmHg) O2 Sat by Pulse 98 97 96 Oximetry 03/12/19 04:08 Temperature 97.7 F Pulse Rate 77 Respiratory 16 Rate Blood Pressure 108/50 (mmHg) O2 Sat by Pulse 96 Oximetry Laboratory Results - last 24 hr 03/12/19 03/12/19 03/12/19 04:26 04:26 04:27 WBC 6.3 RBC 3.11 L Hgb 8.3 L Hct 26 L MCV 83 MCH 27 MCHC 32 RDW 17 H Plt Count 371 MPV 7.3 L INR (Anticoag Therapy) 1.94 H Carcinoembryonic Ag 3.1 Intake & Output 03/11/19 03/12/19 03/12/19 22:59 06:59 14:59 Intake Total 600 110 Output Total 700 Balance -100 110 Weight 153 lb 11.2 oz Intake: IV Fluids 100 metronidazole 100 IVPB 10 metronidazole 10 Oral 600 0 Output: Urine 200 Liquid Stool 500 Other: Estimated Void Large # Bowel Movements 2 1 Estimated Stool Amount Medium Small # Voids 1 Abd: soft, non tender A/P: 83 F with cecal abscess/inflammation with findings of cecal mass on colonoscopy yesterday. - Discussed with Dr. Renee, he will see patient on Thursday to discuss possible surgery. Discussed with Dr. Saha and patient. Patient will be here over weekend fr IV antibiotics. I told her path would likely be back some time mid next week
[2019-03-12] MEDS: Warfarin TAB(*) 2.5 MG PO SCH (17:36)
[2019-03-12] MEDS: cefTRIAXone(*) 2 GM in NS 0.9% 100 ML* 100 ML IVPB SCH (17:36)
[2019-03-12] MEDS: traZODone TAB* 50 MG TAB PO SCH ×2 (20:42→23:51)
[2019-03-13] MEDS: metroNIDAZOLE IV 500 MG/100ML* 500 MG/100 ML BAG IVPB SCH ×3 (04:11→18:24)
[2019-03-13] MEDS: Levothyroxine TAB* 88 MCG TAB PO SCH (04:12)
[2019-03-13 06:31] LABS: ABS Eosinophils 0.2 10^3/ul (0-0.6); ABS Lymphocytes 0.7 10^3/ul (1.0-4.8); ABS Monocytes 0.9 10^3/ul (0-0.8); ABS Neutrophils 4.6 10^3/ul (1.5-7.7); Eosinophil % 3.1 %; Hematocrit 26 % (35-47); Hemoglobin 8.3 g/dL (12.0-16.0); Lymphocyte % 10.5 %; Mean Corpuscular HGB Conc 32 g/dL (31-36); Mean Corpuscular Hemoglobin 26 pg (27-31); Mean Corpuscular Volume 83 fL (80-97); Mean Platelet Volume 7.1 fL (7.4-10.4); Nucleated Red Blood Cells % 0.1; Platelet Count 378 10^3/uL (150-450); Red Blood Count 3.14 10^6 /uL (3.70-4.87); Red Cell Distribution Width 18 % (10.5-15); White Blood Count 6.4 10^3/uL (3.5-10.8)
[2019-03-13 06:43] LABS: INR 2.47 (0.82-1.09)
[2019-03-13 06:53] LABS: BUN/Creatinine Ratio 16.7 (8-20); Calcium 8.3 mg/dL (8.6-10.3); EGFR African American 115.2 (>60); EGFR Non-African American 95.2 (>60)
--- NOTE | 2019-03-13 08:25 | PN ---
Subjective Date of Service: 03/13/19 Interval History: No overnight events. Pt denies symptoms, thinks she feels stronger. Still on IV abx. Her daughter will try and take her outside in a wheelchair today. Daughter wonders if surgeon could stop by later in the morning on Thursday, to discuss possible surgery, as the patient herself cannot hear very well and prefers to have her daughter there for discussion (but she will be at an appointment at 8am tomorrow). Objective Active Medications: Ascorbic Acid (Vitamin C Tab*) 500 mg PO DAILY [facility] Last Admin: 03/12/19 08:51 Dose: 500 mg Atenolol (Tenormin Tab*) 50 mg PO BID [facility] Last Admin: 03/12/19 20:40 Dose: 50 mg Carbidopa/Levodopa (Sinemet 25/100 Tab(*)) 1 tab PO TID [facility] Last Admin: 03/12/19 20:40 Dose: 1 tab Ferrous Sulfate (Ferrous Sulfate Tab*) 325 mg PO DAILY [facility] Last Admin: 03/12/19 08:50 Dose: 325 mg Furosemide (Lasix Tab*) 60 mg PO DAILY [facility] Last Admin: 03/12/19 08:52 Dose: 60 mg Ceftriaxone Sodium 2 gm/ (Sodium Chloride) 100 mls @ 200 mls/hr IVPB Q24H [facility] Last Admin: 03/12/19 17:36 Dose: 200 mls/hr Metronidazole/Sodium Chloride (Flagyl 500 Mg Ivpb*) 500 mg in 100 mls @ 100 mls /hr IVPB Q8H [facility] Last Admin: 03/13/19 04:11 Dose: 100 mls/hr Levothyroxine Sodium (Synthroid Tab*) 88 mcg PO DAILY@0600 [facility] Last Admin: 03/13/19 04:12 Dose: 88 mcg Nft: Carboxymethylcellulo se Sodium [Refresh Tears] 1 Drop 1 drop BOTH EYES .SEE INSTRUCTIONS PRN PRN Reason: DRY EYE Potassium Chloride (Klor Con Er Tab*) 10 meq PO DAILY [facility] Last Admin: 03/12/19 08:49 Dose: 10 meq Trazodone HCl (Desyrel Tab*) 50 mg PO BEDTIME [facility] Last Admin: 03/12/19 23:51 Dose: 50 mg Warfarin Sodium (Coumadin Tab(*)) 2.5 mg PO EVERY OTHER DAY@1700 [facility]; Protocol Last Admin: 03/12/19 17:36 Dose: 2.5 mg Warfarin Sodium (Coumadin Tab(*)) 5 mg PO EVERY OTHER DAY@1700 [facility] Last Admin: 03/11/19 17:07 Dose: 5 mg Oxygen Devices in Use Now: None Appearance: pleasant, in better spirits Ears/Nose/Mouth/Throat: Clear Oropharnyx, Mucous Membranes Moist Neck: NL Appearance and Movements; NL JVP Respiratory: Clear to Auscultation Cardiovascular: - - irregularly irregular Abdominal: NL Sounds; No Tenderness; No Distention, No Hepatosplenomegaly Extremities: - - trace b/l ankle edema Neurological: Alert and Oriented x 3 Result Diagrams: 03/13/19 06:21 03/13/19 06:21 Microbiology and Other Data: Microbiology 03/06/19 18:43 Aerobic Blood Culture - Preliminary Blood Venous No Growth Day 2 Anaerobic Blood Culture - Preliminary No Growth Day 2 03/06/19 18:43 Aerobic Blood Culture - Preliminary Blood Venous No Growth Day 2 Anaerobic Blood Culture - Final Clostridium Septicum 03/08/19 06:50 Stool Occult Blood (TARA) - Final Stool 03/06/19 20:15 Urine Culture - Final Urine Assess/Plan/Problems-Billing Assessment: 83W with chronic afib on Coumadin, Parkinsons, no known CHF but on Lasix 60 mg daily, pacer for SSS, presents with RLQ abd pain and inflammatory change in cecum and found to have mass on colo and clostridum bacteremia, most concerning for adenocarcinoma - Patient Problems (1) Cecum mass Comment: CEA wnl. - Path pending, surgery following - Consult to [facility] (2) Colitis Comment: Sepsis at admission, BCx with Clostridium septicum; CT shows no appendix visualized and inflammation of cecum. C-scope with mass and ulcerations concerning for cancer - no mets on CT. - IV Ceftriaxone/Flagyl (03/06 - 03/09); PO cefdinir/Flagyl (03/09 - 03/11) now back on IV antibiotics - pt has signficant antibiotics allergies; consulting ID - appreciate GI consult; underwent c-scope 03/11 (3) CHF (congestive heart failure) Comment: Acute, pt has no h/o CHF but on Lasix 60 at home - restart home oral Lasix given improved PO and some volume overload on exam - Monitor daily weights and I/Os (4) Atrial fibrillation Comment: - chronic - cont Amiodarone and Atenolol with hold parameters - cont warfarin (5) Anemia Comment: Pt denies melena or BRBPR - could cecal changes be due to malignancy? - start on PO iron once daily with vit C - c-scope 03/11 (6) Parkinson disease Comment: - controlled on sinemet (7) Hypothyroid Comment: cont levothyroxine 88mcg daily; THS at goal (8) DVT prophylaxis Current Visit: Yes Status: Acute Code(s): Z29.9 - ENCOUNTER FOR PROPHYLACTIC MEASURES, UNSPECIFIED SNOMED Code(s): 595848033 Comment: - therapeutic INR Status and Disposition: on IV abx - inpatient
[2019-03-13] MEDS: Atenolol TAB* 50 MG PO SCH ×2 (09:00→20:18)
[2019-03-13] MEDS: Ascorbic Acid TAB* 500 MG PO SCH (09:00)
[2019-03-13] MEDS: Furosemide TAB* 20 MG PO SCH (09:00)
[2019-03-13] MEDS: Carbidopa/Levodop 25/100 MG TAB(*) PO SCH ×3 (09:00→20:17)
[2019-03-13] MEDS: Potassium Chlor TAB* 10 MEQ TAB.ER PO SCH (09:01)
[2019-03-13] MEDS: Ferrous Sulfate TAB* 325 MG PO SCH (09:01)
[2019-03-13] MEDS: Warfarin TAB(*) 5 MG PO SCH (17:45)
[2019-03-13] MEDS: cefTRIAXone(*) 2 GM in NS 0.9% 100 ML* 100 ML IVPB SCH (17:48)
[2019-03-13] MEDS: traZODone TAB* 50 MG TAB PO SCH (20:17)
[2019-03-14] MEDS: metroNIDAZOLE IV 500 MG/100ML* 500 MG/100 ML BAG IVPB SCH ×2 (02:51→10:07)
[2019-03-14] MEDS: Levothyroxine TAB* 88 MCG TAB PO SCH (05:21)
[2019-03-14 06:55] LABS: INR 2.58 (0.82-1.09)
[2019-03-14] MEDS: Ferrous Sulfate TAB* 325 MG PO SCH (09:23)
[2019-03-14] MEDS: Potassium Chlor TAB* 10 MEQ TAB.ER PO SCH (09:23)
[2019-03-14] MEDS: Ascorbic Acid TAB* 500 MG PO SCH (09:23)
[2019-03-14] MEDS: Carbidopa/Levodop 25/100 MG TAB(*) PO SCH ×2 (09:23→13:50)
[2019-03-14] MEDS: Furosemide TAB* 20 MG PO SCH (09:23)
[2019-03-14 09:24] VITALS: BP 107/52
[2019-03-14] MEDS: Atenolol TAB* 50 MG PO SCH (09:24)
[2019-03-14] MEDS ORDERED: cefTRIAXone(*) 1 GM in NS 0.9% 100 ML* 100 ML IVPB SCH (11:00)
[2019-03-14] MEDS ORDERED: metroNIDAZOLE IV 500 MG/100ML* 500 MG/100 ML BAG IVPB SCH ×2 (11:00→21:00)
--- NOTE | 2019-03-14 11:30 | PN ---
Subjective Date of Service: 03/14/19 Interval History: No overnight events and patient denies complaints. Pending surgical discussion. Seen by ID today. Objective Active Medications: Ascorbic Acid (Vitamin C Tab*) 500 mg PO DAILY [facility] Last Admin: 03/14/19 09:23 Dose: 500 mg Atenolol (Tenormin Tab*) 50 mg PO BID [facility] Last Admin: 03/14/19 09:24 Dose: 50 mg Carbidopa/Levodopa (Sinemet 25/100 Tab(*)) 1 tab PO TID [facility] Last Admin: 03/14/19 09:23 Dose: 1 tab Ferrous Sulfate (Ferrous Sulfate Tab*) 325 mg PO DAILY [facility] Last Admin: 03/14/19 09:23 Dose: 325 mg Furosemide (Lasix Tab*) 60 mg PO DAILY [facility] Last Admin: 03/14/19 09:23 Dose: 60 mg Ceftriaxone Sodium 1 gm/ (Sodium Chloride) 100 mls @ 200 mls/hr IVPB Q24H [facility] Last Admin: 03/14/19 11:22 Dose: 200 mls/hr Metronidazole/Sodium Chloride (Flagyl 500 Mg Ivpb*) 500 mg in 100 mls @ 100 mls /hr IVPB Q12H [facility] Levothyroxine Sodium (Synthroid Tab*) 88 mcg PO DAILY@0600 [facility] Last Admin: 03/14/19 05:21 Dose: 88 mcg Nft: Carboxymethylcellulo se Sodium [Refresh Tears] 1 Drop 1 drop BOTH EYES .SEE INSTRUCTIONS PRN PRN Reason: DRY EYE Potassium Chloride (Klor Con Er Tab*) 10 meq PO DAILY [facility] Last Admin: 03/14/19 09:23 Dose: 10 meq Trazodone HCl (Desyrel Tab*) 50 mg PO BEDTIME [facility] Last Admin: 03/13/19 20:17 Dose: 50 mg Warfarin Sodium (Coumadin Tab(*)) 2.5 mg PO EVERY OTHER DAY@1700 [facility]; Protocol Last Admin: 03/12/19 17:36 Dose: 2.5 mg Warfarin Sodium (Coumadin Tab(*)) 5 mg PO EVERY OTHER DAY@1700 [facility] Last Admin: 03/13/19 17:45 Dose: 5 mg Vital Signs - 8 hr 03/14/19 03/14/19 07:31 08:01 Temperature 97.6 F Pulse Rate 70 Respiratory 14 18 Rate Blood Pressure 107/52 (mmHg) O2 Sat by Pulse 96 Oximetry Oxygen Devices in Use Now: None Appearance: chronically ill appearing, in better spirits; eating full breakfast tray Ears/Nose/Mouth/Throat: Mucous Membranes Moist Neck: NL Appearance and Movements; NL JVP Respiratory: Clear to Auscultation Cardiovascular: - - irreg Extremities: - - 1+ mcfp up ankles Neurological: Alert and Oriented x 3 Result Diagrams: 03/13/19 06:21 03/13/19 06:21 Microbiology and Other Data: Microbiology 03/06/19 18:43 Aerobic Blood Culture - Preliminary Blood Venous No Growth Day 2 Anaerobic Blood Culture - Preliminary No Growth Day 2 03/06/19 18:43 Aerobic Blood Culture - Preliminary Blood Venous No Growth Day 2 Anaerobic Blood Culture - Final Clostridium Septicum 03/08/19 06:50 Stool Occult Blood (TARA) - Final Stool 03/06/19 20:15 Urine Culture - Final Urine Assess/Plan/Problems-Billing Assessment: 83W with chronic afib on Coumadin, Parkinsons, no known CHF but on Lasix 60 mg daily, pacer for SSS, presents with RLQ abd pain and inflammatory change in cecum and found to have mass on colo and clostridum bacteremia, most concerning for adenocarcinoma - Patient Problems (1) Cecum mass Comment: CEA wnl. - Path pending - Consult to [facility] - Pending surgical plan/discussion (2) Colitis Comment: Sepsis at admission, BCx with Clostridium septicum; CT shows no appendix visualized and inflammation of cecum. C-scope with mass and ulcerations concerning for cancer - no mets on CT. - IV Ceftriaxone/Flagyl (03/06 - 03/09); PO cefdinir/Flagyl (03/09 - 03/11) now back on IV antibiotics - pt has signficant antibiotics allergies; consulting ID - appreciate GI consult; underwent c-scope 03/11 (3) CHF (congestive heart failure) Comment: Acute, pt has no h/o CHF but on Lasix 60 at home - will increase furosemide dose to 80mg PO given worsening LE edema; denies respiratory symptoms - Monitor daily weights and I/Os (4) Atrial fibrillation Comment: - chronic - cont Amiodarone and Atenolol with hold parameters - cont warfarin (5) Anemia Comment: Pt denies melena or BRBPR - could cecal changes be due to malignancy? - start on PO iron once daily with vit C - c-scope 03/11 (6) Parkinson disease Comment: - controlled on sinemet (7) Hypothyroid Comment: cont levothyroxine 88mcg daily; THS at goal (8) DVT prophylaxis Current Visit: Yes Status: Acute Code(s): Z29.9 - ENCOUNTER FOR PROPHYLACTIC MEASURES, UNSPECIFIED SNOMED Code(s): 741011280 Comment: - therapeutic INR Status and Disposition: on IV abx - inpatient
[2019-03-14] MEDS ORDERED: Furosemide IV* 10 MG/ML 2 ML VIAL (20 MG) IV ONE (11:36)
--- NOTE | 2019-03-14 11:42 | CONS ---
CONSULTATION REPORT: DATE OF CONSULT: 03/14/19 REQUESTING PHYSICIAN: Dr. Alcocer. CONSULTING SERVICE: Infectious Disease. REASON FOR CONSULT: Clostridial bacteremia. IMPRESSION: 1. Clostridium septicum in 1/4 blood culture bottles taken in the setting of a cecal mass likely due to mucosal disruption of the cecum. No evidence of abscess on the CT scan. Anaerobes are not associated with distal spread of infection. 2. Antibiotic allergies listed to AUGMENTIN, CEPHALEXIN, CLARITHROMYCIN, LEVAQUIN. She is tolerating ceftriaxone well and cannot provide any history as to the reactions. 3. Atrial fibrillation. 4. Sick sinus syndrome with a pacemaker. 5. Hypothyroidism. 6. Parkinson's disease. RECOMMENDATIONS: We will continue Flagyl, decrease to twice a day as well as ceftriaxone in the events of a local polymicrobial infection. She has had approximately a week of effective antibiotic therapy. I do not think she needs a prolonged course and we will plan on a couple more days here as her ultimate plans are worked out. HISTORY OF PRESENT ILLNESS: This is an 83-year-old woman admitted with chills, right lower quadrant pain, dyspnea on exertion. She was found to have an abdominal mass by CT with some inflammatory stranding. Blood cultures taken at admission 10/29 Clostridium septicum and the others were negative. She was on Flagyl and ceftriaxone, tolerated well. Initial white count was 12, in the normal range since that time. She was off antibiotics for a couple days, they were restarted end of last week. She had colonoscopy. Some biopsies of the mass were taken. No report of anything that sounds like an abscess were detected. Today, she denies pain, shortness of breath, or chills. Otherwise, cannot provide much history; history is obtained instead from review of the medical record. PAST MEDICAL HISTORY: 1. Atrial fibrillation. 2. Sick sinus syndrome, status post pacemaker. 3. Hypothyroidism. 4. Ankylosing spondylitis. 5. Parkinson's disease. 6. Status post tubal ligation. 7. Status post cholecystectomy. 8. Status post atrial septal defect repair. ALLERGIES: AUGMENTIN, KEFLEX, CLARITHROMYCIN, DOXYCYCLINE, MULTAQ, LEVAQUIN, NITROGLYCERIN, SULFA, and PROPAFENONE; reactions unknown. MEDICATIONS: 1. Vitamin C. 2. Atenolol. 3. Sinemet. 4. Ferrous sulfate. 5. Lasix. 6. Levothyroxine. 7. Flagyl 500 mg IV every 8 hours. 8. Ceftriaxone 2 g daily. 9. Trazodone. 10. Warfarin. SOCIAL HISTORY: She is a nonsmoker, quit in 1972. No alcohol use. 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 FAMILY HISTORY: Mother had metastatic melanoma, at 86. Father in an accident. REVIEW OF SYSTEMS: All negative to a 14-point review except as noted above in the history of present illness. PHYSICAL EXAM: Vital Signs: Temperature 36.4, heart rate 70, respiratory rate 18, blood pressure 107/52, oxygen saturation 96% on room air. In general, she is awake, in no distress. Neurologic: She is oriented x3, answers most questions appropriately, follows commands, moves all extremities. HEENT: There is no conjunctival hemorrhage. Oropharynx without lesions. Neck is supple without mass. Heart is regular rate and rhythm without murmurs, rubs, or gallops. Lungs: Clear to auscultation bilaterally. Abdomen: Soft, mildly distended, nontender. There are bowel sounds present. There is no rebound. Skin: There is no rash or splinter hemorrhage. Musculoskeletal: There is no spine tenderness to palpation or joint synovitis. DIAGNOSTIC STUDIES/LAB DATA: White blood cell count 6, hemoglobin 8, platelets 378, MCV 83. Creatinine is 0.6. Influenza PCR negative. Please see impressions and recommendations outlined above. Thanks for asking me to see Ms. Weiss in consultation. [id number]/CPS #: [id number] [facility] [id number]
--- NOTE | 2019-03-14 12:29 | CONSULT ---
Palliative / Hospice Consult Ordering Provider: Maraym Alcocer - [facility] Referal Reason: Goals of care - Subjective Code Status: DNR Advance Directives Location: No Advance Directives MOLST Part A Completed: Yes - on chart MOLST Part E Completed:: Yes - on chart - History or Present Illness History or Present Illness: 83 yo female with Parkinson disease presents to ER with abdominal pain and dyspnea who was admitted for sepsis and pulmonary edema. PMH is significant for afib on coumadin, sick sinus syndrome with a pacer(follows with Livan), Parkinson disease on sinemet(follows with Edyta), hypothyroid and ankylosing spondylitis. CXR showed pulmonary edema and bibasilar effusions, Ekg-afib, CT Abd showed thickened wall around cecum & diverticulosis coli, ECHO 50-55% EF, atrial septal closure device and pacer, H/H 8.3/26, BUN/Cr 10/.6 egfr 95.2, Ca 8.3, CRP 107, tprot 7, alb 3.6, B12 606, folate 18.39 & CEA 3.1. Hospital course pt's lasix was adjusted to help with pulmonary edema, surgery was consulted but felt surgery was not needed because pt improved with IV antibiotics(culture showed clostridium septicum), GI saw pt for anemia and colonoscopy was performed which showed a cecal mass with ulcers and moderate chaney diverticulosis coli. Pt has declined surgery at this time and is eager to get to rehab so she can get back to her home. 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 All history is from pt, family and medical records. Pt's son is being buried tomorrow and she would like to attend. Lab Values: Abnormal Lab Results 03/14/19 06:18 INR (Anticoag Therapy) 2.58 H Laboratory Last Values WBC 6.4 10^3/uL (3.5-10.8) 03/13/19 06:21 RBC 3.14 10^6 /uL (3.70-4.87) L 03/13/19 06:21 Hgb 8.3 g/dL (12.0-16.0) L 03/13/19 06:21 Hct 26 % (35-47) L 03/13/19 06:21 MCV 83 fL (80-97) 03/13/19 06:21 MCH 26 pg (27-31) L 03/13/19 06:21 MCHC 32 g/dL (31-36) 03/13/19 06:21 RDW 18 % (10.5-15) H 03/13/19 06:21 Plt Count 378 10^3/uL (150-450) 03/13/19 06:21 MPV 7.1 fL (7.4-10.4) L 03/13/19 06:21 Neut % (Auto) 71.8 % 03/13/19 06:21 Lymph % (Auto) 10.5 % 03/13/19 06:21 [place] % (Auto) 13.8 % 03/13/19 06:21 Eos % (Auto) 3.1 % 03/13/19 06:21 Baso % (Auto) 0.8 % 03/13/19 06:21 Absolute Neuts (auto) 4.6 10^3/ul (1.5-7.7) 03/13/19 06:21 Absolute Lymphs (auto) 0.7 10^3/ul (1.0-4.8) L 03/13/19 06:21 Absolute Monos (auto) 0.9 10^3/ul (0-0.8) H 03/13/19 06:21 Absolute Eos (auto) 0.2 10^3/ul (0-0.6) 03/13/19 06:21 Absolute Basos (auto) 0.0 10^3/ul (0-0.2) 03/13/19 06:21 Absolute Nucleated RBC 0.0 10^3/ul 03/13/19 06:21 Nucleated RBC % 0.1 03/13/19 06:21 INR (Anticoag Therapy) 2.58 (0.82-1.09) H 03/14/19 06:18 Sodium 138 mmol/L (135-145) 03/13/19 06:21 Potassium 4.0 mmol/L (3.5-5.0) 03/13/19 06:21 Chloride 108 mmol/L (101-111) 03/13/19 06:21 Carbon Dioxide 25 mmol/L (22-32) 03/13/19 06:21 Anion Gap 5 mmol/L (2-11) 03/13/19 06:21 BUN 10 mg/dL (6-24) 03/13/19 06:21 Creatinine 0.60 mg/dL (0.51-0.95) 03/13/19 06:21 Est GFR ( Amer) 115.2 (>60) 03/13/19 06:21 Est GFR (Non-Af Amer) 95.2 (>60) 03/13/19 06:21 BUN/Creatinine Ratio 16.7 (8-20) 03/13/19 06:21 Glucose 100 mg/dL (70-100) 03/13/19 06:21 Lactic Acid 1.4 mmol/L (0.5-2.0) 03/06/19 18:43 Calcium 8.3 mg/dL (8.6-10.3) L 03/13/19 06:21 Magnesium 2.8 mg/dL (1.9-2.7) H 03/11/19 05:00 Iron < 17 ug/dL (50-212) L 03/08/19 05:50 TIBC 252 mcg/dL (250-450) 03/08/19 05:50 % Saturation 7 % (15-55) L 03/08/19 05:50 Unsat Iron Binding < 237 ug/dL 03/08/19 05:50 Transferrin 180 mg/dL (203-362) L 03/08/19 05:50 Ferritin 60.5 ng/mL (11-307) 03/08/19 05:50 Total Bilirubin 0.40 mg/dL (0.2-1.0) 03/06/19 18:43 AST 9 U/L (13-39) L 03/06/19 18:43 ALT 4 U/L (7-52) L 03/06/19 18:43 Alkaline Phosphatase 70 U/L (34-104) 03/06/19 18:43 Total Creatine Kinase 31 U/L (10-223) 03/06/19 18:43 Troponin I 0.01 ng/mL (<0.04) 03/06/19 18:43 C-Reactive Protein 107.50 mg/L (<8.01) H 03/10/19 06:10 B-Natriuretic Peptide 590 pg/mL (<=100) H 03/06/19 18:43 Total Protein 7.0 g/dL (6.4-8.9) 03/06/19 18:43 Albumin 3.6 g/dL (3.2-5.2) 03/06/19 18:43 Globulin 3.4 g/dL (2-4) 03/06/19 18:43 Albumin/Globulin Ratio 1.1 (1-3) 03/06/19 18:43 Carcinoembryonic Ag 3.1 ng/mL (0.1-5.0) 03/12/19 04:26 Vitamin B12 606 pg/mL (180-914) 03/08/19 05:50 Folate 18.39 ng/mL (>3.99) 03/08/19 05:50 TSH 7.82 mcIU/mL (0.34-5.60) H 03/06/19 18:43 Urine Color Straw 03/06/19 20:15 Urine Appearance Cloudy 03/06/19 20:15 Urine pH 5.0 (5-9) 03/06/19 20:15 Ur Specific [place] 1.009 (1.010-1.030) L 03/06/19 20:15 Urine Protein Negative (Negative) 03/06/19 20:15 Urine Ketones Negative (Negative) 03/06/19 20:15 Urine Blood 1+ (Negative) A 03/06/19 20:15 Urine Nitrate Negative (Negative) 03/06/19 20:15 Urine Bilirubin Negative (Negative) 03/06/19 20:15 Urine Urobilinogen Negative (Negative) 03/06/19 20:15 Ur Leukocyte Esterase Negative (Negative) 03/06/19 20:15 Urine WBC (Auto) Trace(0-5/hpf) (Absent) 03/06/19 20:15 Urine RBC (Auto) Trace(0-2/hpf) (Absent) 03/06/19 20:15 Ur Squamous Epith Cells Present (Absent) A 03/06/19 20:15 Urine Bacteria Absent (Absent) 03/06/19 20:15 Hyaline Casts Present (Absent) A 03/06/19 20:15 Urine Glucose Negative (Negative) 03/06/19 20:15 Influenza A (Rapid) Negative (Negative) 03/06/19 18:10 Influenza B (Rapid) Negative (Negative) 03/06/19 18:10 - Objective Active Medications: Ascorbic Acid (Vitamin C Tab*) 500 mg PO DAILY [facility] Last Admin: 03/14/19 09:23 Dose: 500 mg Atenolol (Tenormin Tab*) 50 mg PO BID [facility] Last Admin: 03/14/19 09:24 Dose: 50 mg Carbidopa/Levodopa (Sinemet 25/100 Tab(*)) 1 tab PO TID [facility] Last Admin: 03/14/19 09:23 Dose: 1 tab Ferrous Sulfate (Ferrous Sulfate Tab*) 325 mg PO DAILY [facility] Last Admin: 03/14/19 09:23 Dose: 325 mg Furosemide (Lasix Tab*) 80 mg PO DAILY [facility] Ceftriaxone Sodium 1 gm/ (Sodium Chloride) 100 mls @ 200 mls/hr IVPB Q24H [facility] Last Admin: 03/14/19 11:22 Dose: 200 mls/hr Metronidazole/Sodium Chloride (Flagyl 500 Mg Ivpb*) 500 mg in 100 mls @ 100 mls /hr IVPB Q12H [facility] Levothyroxine Sodium (Synthroid Tab*) 88 mcg PO DAILY@0600 [facility] Last Admin: 03/14/19 05:21 Dose: 88 mcg Nft: Carboxymethylcellulo se Sodium [Refresh Tears] 1 Drop 1 drop BOTH EYES .SEE INSTRUCTIONS PRN PRN Reason: DRY EYE Potassium Chloride (Klor Con Er Tab*) 10 meq PO DAILY [facility] Last Admin: 03/14/19 09:23 Dose: 10 meq Trazodone HCl (Desyrel Tab*) 50 mg PO BEDTIME [facility] Last Admin: 03/13/19 20:17 Dose: 50 mg Warfarin Sodium (Coumadin Tab(*)) 2.5 mg PO EVERY OTHER DAY@1700 [facility]; Protocol Last Admin: 03/12/19 17:36 Dose: 2.5 mg Warfarin Sodium (Coumadin Tab(*)) 5 mg PO EVERY OTHER DAY@1700 [facility] Last Admin: 03/13/19 17:45 Dose: 5 mg Vital Signs: Vital Signs: Temp Pulse Resp BP Pulse Ox 97.6 F 70 18 107/52 96 03/14/19 08:01 03/14/19 08:01 03/14/19 08:01 03/14/19 08:01 03/14/19 08:01 Patient Weight: Weight 67.767 kg Intake and Output: Intake & Output 05/18/03/13/19 03/14/19 03/15/19 06:59 06:59 06:59 06:59 Intake Total 301 229 3445 360 Output Total 1300 200 Balance -283 647 9491 360 Weight 69.717 kg 69.763 kg 67.767 kg Intake: IV Fluids 100 200 307 NS (0.9%) 0 metronidazole 100 200 307 IVPB 10 15 35 metronidazole 10 15 35 Oral 600 597 840 360 Output: Urine 800 200 Liquid Stool 500 Other: Estimated Void Large Large Date of Last Bowel 03/13/19 Movement # Bowel Movements 1 1 1 1 Estimated Stool Amount Small Medium Large Small # Voids 1 1 3 ADLs: Meal Record Start: 03/06/19 22: 35 Freq: DAILY@0900,1400,1800 Status: Active Protocol: Created 03/06/19 22:35 System (Rec: 03/06/19 22:35 System TELE-C03) Document 03/07/19 09:00 [id number] (Rec: 03/07/19 09:10 TLH4237 TELE-C13) Document 03/07/19 14:00 PKP4528 (Rec: 03/07/19 15:26 CUJ8614 TELE-C13) Document 03/07/19 18:00 DBN6002 (Rec: 03/07/19 18:17 PAL3442 TELE-M15) Document 03/08/19 09:00 UTO5975 (Rec: 03/08/19 09:42 YYL0872 TELE-C07) Document 03/08/19 14:00 MOH5803 (Rec: 03/08/19 14:16 ELX9608 TELE-C07) Document 03/08/19 18:00 XMQ0330 (Rec: 03/08/19 18:29 JSF3589 TELE-C07) Document 03/09/19 09:00 AKB3028 (Rec: 03/09/19 10:53 LKZ0946 TELE-C11) Document 03/09/19 14:00 QSX7431 (Rec: 03/09/19 14:59 AKI3816 TELE-C10) Document 03/09/19 18:00 PUR2086 (Rec: 03/09/19 18:25 ZWW3453 TELE-C11) Document 03/10/19 09:00 AFA6820 (Rec: 03/10/19 13:07 ZOZ7207 TELE-C08) Document 03/10/19 13:07 KME8275 (Rec: 03/10/19 13:07 RAP5297 TELE-C08) Document 03/10/19 18:00 DRN1635 (Rec: 03/10/19 23:44 GXV8803 TELE-C35) Document 03/11/19 09:00 VBF3760 (Rec: 03/11/19 15:02 YXN6101 TELE-C07) Document 03/11/19 14:00 HLE9333 (Rec: 03/11/19 15:03 KLA8611 TELE-C07) Document 03/11/19 18:00 CMT7978 (Rec: 03/11/19 18:16 KCR6076 TELE-M04) Document 03/12/19 09:00 JEI4650 (Rec: 03/12/19 10:18 XCA8414 TELE-C03) Document 03/12/19 14:00 ACQ1000 (Rec: 03/12/19 14:48 KOV8087 TELE-C03) Document 03/12/19 20:48 LTY2762 (Rec: 03/12/19 20:48 SNA2496 TELE-C07) Document 03/13/19 09:00 NHH1788 (Rec: 03/13/19 14:34 SUP8187 TELE-C09) Document 03/13/19 14:00 BCS4362 (Rec: 03/13/19 14:46 XMI9193 TELE-C09) Document 03/13/19 18:00 JTD9885 (Rec: 03/13/19 18:24 GJR3627 TELE-C09) Document 03/14/19 09:00 PFS4345 (Rec: 03/14/19 09:55 FPL7727 TELE-C07) Intake and Output Start: 03/06/19 18: 01 Freq: Status: Cancelled Protocol: Created 03/06/19 18:01 System (Rec: 03/06/19 18:01 System EDRM-C04) Intake and Output Start: 03/06/19 22: 35 Freq: DAILY@0600,1400,2200 Status: Cancelled Protocol: Created 03/06/19 22:35 System (Rec: 03/06/19 22:35 System TELE-C03) Document 03/07/19 06:00 ODN7963 (Rec: 03/07/19 06:05 TOO2421 TELE-C03) Intake and Output Start: 03/07/19 08: 28 Freq: 06,14,2200 Status: Active Protocol: Created 03/07/19 08:29 BLP7378 (Rec: 03/07/19 08:29 BKG BRIANNA-BG12) Document 03/07/19 14:00 AHO4476 (Rec: 03/07/19 15:26 DPU9393 TELE-C13) Document 03/07/19 21:28 LSN7312 (Rec: 03/07/19 21:29 WAZ0180 TELE-C07) Document 03/08/19 06:00 TZT8039 (Rec: 03/08/19 06:30 ARM8788 TELE-C32) Document 03/08/19 14:00 ZAT8210 (Rec: 03/08/19 14:16 WOG8637 TELE-C07) Document 03/08/19 21:54 PCN6260 (Rec: 03/08/19 21:54 YDR7601 TELE-C01) Document 03/09/19 05:47 EMO9962 (Rec: 03/09/19 05:47 MPX9542 TELE-C35) Document 03/09/19 14:00 MKD4790 (Rec: 03/09/19 14:59 ESS1307 TELE-C10) Document 03/09/19 22:00 PTO1331 (Rec: 03/09/19 22:28 WPK3832 TELE-C11) Document 03/10/19 06:00 DIM6031 (Rec: 03/10/19 06:04 ODR6106 TELE-C32) Document 03/10/19 14:00 DJV7131 (Rec: 03/10/19 15:02 YOP0267 TELE-C08) Document 03/10/19 22:00 NPU9046 (Rec: 03/10/19 23:47 BZH1093 TELE-C35) Document 03/11/19 06:00 FJG8263 (Rec: 03/11/19 06:16 UJX3428 TELE-C01) Document 03/11/19 14:00 PPA3732 (Rec: 03/11/19 15:03 VBM4069 TELE-C07) Document 03/11/19 21:00 HDB0414 (Rec: 03/11/19 21:03 FWK4381 TELE-C07) Document 03/12/19 06:00 DKC6615 (Rec: 03/12/19 06:17 OBB3430 TELE-C10) Document 03/12/19 14:00 CSR6905 (Rec: 03/12/19 14:48 QPS8780 TELE-C03) Document 03/12/19 21:15 LFF5822 (Rec: 03/12/19 21:16 NYQ6207 TELE-C07) Document 03/13/19 05:13 TDW2958 (Rec: 03/13/19 05:14 JUM4435 TELE-C06) Document 03/13/19 14:00 ZVL0016 (Rec: 03/13/19 14:46 SER0205 TELE-C09) Document 03/13/19 21:55 NDO3873 (Rec: 03/13/19 21:55 VSG5265 TELE-C08) Document 03/14/19 06:00 YBL6974 (Rec: 03/14/19 06:07 WER9836 TELE-C05) Eyes: No Scleral Icterus, PERRLA Ears/Nose/Mouth/Throat: Mucous Membranes Moist Neck: NL Appearance and Movements; NL JVP Cardiovascular: - - irreg Respiratory: Clear to Auscultation Abdominal: NL Sounds; No Tenderness; No Distention, No Hepatosplenomegaly Extremities: - - 1+ fpc up ankles Neurological: Alert and Oriented x 3 - Assessment Assessment: 83 yo female with Parkinson disease, pulmonary edema and new cecal mass declining surgery at this time - Plan Consult Plan (MU): Palliative Plan: Long conversation with pt and her 2 daughters. They have a good understanding of pt's medical issues. Pt is declining surgery still waiting for pathology report. Pt absolutely doesn't want radiation/chemotherapy. She was told by ct tech she would need a chemical stress test prior to elective knee replacement and she doesn't want a stress test ever again. Pt has follow up with surgery and may change her mind at that point depending on the pathology report. Overall pt has expressed that she has led a full life and isn't afraid to . Family is very familiar with hospice pt had her son with hospice at [facility] and her daughter at home with hospice. Depending on the pathology report pt may be eligible for hospice. Family can self refer to hospice while at SNF. If pt is not hospice eligible, I recommended [facility] program once discharged to home if she has a group home need and [facility] program if she doesn't, brochure with phone numbers was given. KPS 60% PPS 60% - Time On Unit Date of Evaluation: 03/14/19 Hospice Consult Time in: 11:00 Hospice Consult Time Out: 12:30 Hospice Consult Time Total: 90 > 50% of Time Spend In Counseling or Coordinating Care: Yes
--- NOTE | 2019-03-14 13:14 | PN ---
Progress Note - Progress Note Date of Service: 03/14/19 SOAP: Subjective: []no complaints, eating lunch Objective: [] Temp Pulse Resp BP Pulse Ox 97.6 F 70 18 107/52 96 03/14/19 08:01 03/14/19 08:01 03/14/19 08:01 03/14/19 08:01 03/14/19 08:01 abdomen benign Assessment: []stable, cecal mass, awaiting final path however likely malignant Plan: []discussed surgery with patient, she would like to wait until path is available and likely only wants palliative care. "i've lived a long life and just want to be comfortable", daughters present for conversation, they will see me in the office if she has questions or wants to consider surgery
--- NOTE | 2019-03-14 15:34 | DS ---
CC: Arianne Hernandez NP; Dr. Jadon Alfaro; Dr. Ashutosh Renee; Dr. Keaton Cannon; Dr. Sia Denson DISCHARGE SUMMARY: DATE OF ADMISSION: 03/06/19 DATE OF DISCHARGE: 03/14/19 PRIMARY CARE PHYSICIAN: Arianne Hernandez NP. CONSULTS: Dr. Jadon Alfaro from GI, Dr. Ashutosh Renee from Surgery, and Dr. Keaton Cannon from ID; Palliative Care, Dr. Sia Denson PRIMARY DIAGNOSIS: Cecal inflammation and mass. SECONDARY DIAGNOSES: 1. Parkinson's disease. 2. Diastolic heart failure. 3. Sick sinus syndrome and atrial fibrillation, status post pacemaker, on anticoagulation. 4. Hypothyroidism. PROCEDURES: Colonoscopy on 03/11/19. DISCHARGE MEDICATIONS: 1. Metronidazole 250 mg p.o. every 12 hours for 5 more days (last day 03/19). 2. Furosemide 80 mg daily. 3. Warfarin 5 mg / 2.5 mg on alternating days. 4. Levothyroxine 88 mcg daily. 5. Potassium chloride 10 mEq daily. 6. Atenolol 50 mg twice a day. 7. Carbidopa/levodopa 25/100 one tab 3 times a day. 8. Ferrous sulfate 325 mg daily on an empty stomach with vitamin C 500 mg. HISTORY OF PRESENT ILLNESS: Ms. Weiss is an 83-year-old woman with a history of chronic atrial fibrillation on warfarin, tachy-ricky syndrome s/p permanent pacemaker, Parkinson's disease, hypothyroidism, and diastolic heart failure, who is presenting with few days of intermittent right lower quadrant sharp pains that were mild in nature. One day prior to admission, she had 4 hours of shaking chills and again on day of admission, 6 hours of shaking chills and fell backwards on her bed. Given Thursday's symptoms, she presented to the emergency room. HOSPITAL COURSE: In the emergency room, she was noted to have a fever of 102.1 with tachycardia to 106 and leukocytosis to 12.5, lactate was normal, and CRP was 134. A chest x -ray was consistent with cardiogenic pulmonary edema with bibasilar pleural effusions. A CT abdomen and pelvis showed thickened cecum with paracecal inflammatory stranding, which was concerning for inflammation, but also mass. General Surgery was consulted, who recommended a medical admission for IV antibiotics with them following as a consultation. She was started on ceftriaxone and Flagyl, given multiple antibiotic allergies, and also given a 2 L bolus of normal saline. However, as she had been experiencing increased shortness of breath for the last few weeks, she was given furosemide IV for pulmonary edema. She initially had hypoxia on ambulation but this improved with further diuresis. 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 All infectious parameters improved, including resolution of fever, leukocytosis, and symptoms. Infectious Diseases recommended switching to oral metronidazole 250 mg twice a day for 5 more days after discharge. Of note, she did receive a third generation cephalosporin as well as Flagyl IV for the entire length of her hospitalization. By the day of admission, the patient denied all abdominal pain, nausea, vomiting, or diarrhea. She had been afebrile for several days and tolerating solid foods with good appetite. PERTINENT STUDY/LABS: Hemoglobin 8.4, normocytic. Iron less than 17, percent saturation 7, ferritin 60. B12 606. Folate 18. TSH 7.8. Transthoracic echocardiogram with LV cavity size normal with wall thickness mildly increased. Systolic function at the lower limits abnormal with EF 50% to 55%. LV diastolic function parameters are indeterminate. RV cavity size mildly dilated with wall thickness mildly increased. Pacer wire noted in the right ventricle. Systolic function of RV is normal with systolic pressure mildly to moderately increased. RA mildly dilated. Aortic valve with leaflets mildly thickened. No evidence of stenosis with trivial regurgitation. Abdomen and pelvis CT with irregular thickened cecal wall with paracecal inflammatory stranding, which could represent infectious or inflammatory process versus tumor. The appendix was not clearly visualized and appendicitis or diverticulitis were additional possibilities. No evidence of perforation, small to moderate right pleural effusion, bilateral lower lobe atelectasis. Gallbladder not visualized, maybe surgically absent. Appendix not clearly identified, so appendicitis is not excluded. DISCHARGE PLAN: The patient is to follow up with Surgery with Dr. Renee for ongoing possible management of her cecal mass. The GI doctor that saw her while she was admitted plans to call her with the pathology results. She will also follow up with her primary care physician closely for ongoing management of her chronic medical problems, including heart failure; atrial fibrillation, on anticoagulation. Changes to her medications are listed above. Of note, she is no longer on diltiazem given occasional low heart rates and blood pressures while admitted. Her home furosemide dose was increased to 80 mg daily given pulmonary edema despite good medication adherence. She will also continue a 5- day course of oral Flagyl. She can continue on warfarin until further plan is made clear with the surgical team and the patient's goals of care and wishes. She also had oral iron supplementation added once daily for iron deficiency anemia. Return precautions were given to her and her very closely involved daughters. She is to resume healthy diet and activity as tolerated. DISPOSITION: To [facility]. CONDITION: Improved. TIME SPENT: Approximately 60 minutes was spent on discharge of this patient, more than half of which was spent on care, coordination and at bedside for interview and exam. [id number]/[facility] #: [id number] MTDD
[2019-03-15] MEDS ORDERED: Furosemide TAB* 20 MG PO SCH (12:00)
== END 2019-03-14 15:16 | DRG 871 ==
LOC: ED 17:54 → MEDTELE 21:39
PROVIDERS: ADMIT Internal Medicine; ATTEND Internal Medicine
PROC: 0DDH8ZX Extraction of Cecum, Via Natural or Artificial Opening Endoscopic, Diagnostic (ICD-10-PCS; principal; 2019-03-11)
DX: A41.9 Sepsis, unspecified organism (principal); I50.31 Acute diastolic (congestive) heart failure; J81.1 Chronic pulmonary edema; K63.3 Ulcer of intestine; A04.8 Other specified bacterial intestinal infections; C18.0 Malignant neoplasm of cecum; J98.11 Atelectasis; I95.9 Hypotension, unspecified; Z66 Do not resuscitate; I48.2 Chronic atrial fibrillation; G20 Parkinson's disease; I49.5 Sick sinus syndrome; K57.30 Diverticulosis of large intestine without perforation or abscess without bleeding; E03.9 Hypothyroidism, unspecified; M45.9 Ankylosing spondylitis of unspecified sites in spine; D64.9 Anemia, unspecified; R09.02 Hypoxemia; Z79.01 Long term (current) use of anticoagulants; Z95.0 Presence of cardiac pacemaker; Z79.899 Other long term (current) drug therapy; Z88.1 Allergy status to other antibiotic agents; Z88.2 Allergy status to sulfonamides; Z88.8 Allergy status to other drugs, medicaments and biological substances; Z87.891 Personal history of nicotine dependence; Z80.8 Family history of malignant neoplasm of other organs or systems
CPT/HCPCS: 36415; 71045; 71046; 74177; 80048; 80053; 81003; 81015; 82272; 82378; 82550; 82607; 82728; 82746; 83540; 83550; 83605; 83735; 83880; 84443; 84484; 85025; 85027; 85610; 86140; 87040; 87076; 87086; 87205; 88305; 88341; 88342; 93005; 93306; 99156; 99157; 99284; A9270-GY; G8978-GP-CK; G8979-GP-CI; J0690; J0696; J1940; J2250; J3010; J3430; J3480; J3490; Q9967

== ENCOUNTER 2019-05-10 20:34 | Emergency (ER) | payer MEDICARE ==
--- OUTSIDE RECORDS SUMMARY | 2019-05-10 21:08 | XMS REPORT | Continuity of Care Document ---
:1935 External Reference #:[id number] Author Name Sandrine Rodriguez Care Team Providers Name Role Phone Art Dee MD Primary Care Physician Unavailable Payers Date Identification Numbers Payment Provider Subscriber Policy Number: [id number] Medicare Melina Weiss PayID: [id number] [address] [place] [address] Policy Number: [id number] [facility] Melina Weiss PayID: [id number] [address] [place] [address] Problems Active Problems Provider Date Atrial fibrillation Jason Licona M.D., [facility], Onset: 09/02/2013 FASNC Ostium secundum type atrial septal Jason Licona M.D., [facility], Onset: 10/10 defect FASNC Localized, primary osteoarthritis of Melissa Thompson M.D. Onset: 09/10/2016 the pelvic region and thigh Edema Jason Licona M.D., [facility], Onset: 03/04/2017 FASNC Difficulty breathing Jason Licona M.D., [facility], Onset: 03/04/2017 FASNC Chronic atrial fibrillation Jason Licona M.D., [facility], Onset: 04/07/2018 FASNC Anemia Sandy Saha MD Onset: 03/12/2019 Family History Date Family Member(s) Observation Comments General Diabetes General Heart Disease General Cancer General Thyroid Disease Social History Type Date Description Comments Sex Unknown Marital Status Lives With Alone Occupation Retired Hand Dominance Right-handed ETOH Use Denies alcohol use Tobacco Use Start: Unknown End: Patient is a former quit 40 years ago Unknown smoker Recreational Drug Use Never Used Drugs Smoking Status Reviewed: 04/06/19 Patient is a former quit 40 years ago smoker Exercise Type/Frequency Does not exercise Allergies, Adverse Reactions, Alerts Active Allergies Reaction Severity Comments Date Nitroglycerin 09/02/2013 Sulfa Antibiotics 09/02/2013 Augmentin 09/02/2013 Bactrim 09/02/2013 Keflex 09/02/2013 Macrodat 09/02/2013 Levaquin 09/02/2013 Multaq 09/02/2013 Propafenone 09/02/2013 Biaxin 09/02/2013 Doxycycline 09/02/2013 Medications Active Medications SIG Qnty Indications Ordering Date Provider Furosemide 1 by mouth every 90tabs Jason Joshi 03/04/2017 40mg Tablets morning Caio Licona, [facility], [facility] Carbidopa-Levodopa 1 tab by mouth 270tabs G20 Todd Hector 01/02/2016 three times a day Caio Lan 25-100mg Tablets after meals Levothyroxine Sodium 1 by mouth every Unknown day 75mcg Tablets Colace 2 tabs every night Unknown 100mg Capsules Refresh Eye Drops prn Unknown Tylenol Arthritis 2 po q8hrs prn 100tabs Unknown Pain 650mg Tablets ER Meclizine HCL 1 po tid prn 90tabs Unknown 25mg Tablets Diazepam prn 2tabs Unknown 5mg Tablets Klor-Con 10 1 po qd Am (taken 90tabs Unknown 10Meq along with Tablets ER Furosemide) Atenolol 1 po bid 90tabs Unknown 50mg Tablets Diltiazem HCL 1 po b.i.d 90tabs Unknown 120mg Tablets Warfarin Sodium 5 mg mon, Wed 100tabs Unknown 5mg fri... and then Tablets 2.5mg , , thu , sun take as directed ( adjustment made Dr. Dee) History Medications Alprazolam 1 po qd prn 14tabs F06.4 Todd Hector 01/26/2019 - 0.5mg Tablets anxiety Caio Lan Unknown Clindamycin HCL one capsule by jing Carreno 11/24/2016 - 150mg cheyenne Fagan M.D. 12/01/2016 Capsules times a day for 3 days Levothyroxine Sodium 1 po qd Unknown - 01/26/2019 112mcg Tablets Furosemide 1 po qam 30tabs Unknown - 20mg Tablets 03/04/2017 Tylenol PM as needed Unknown - Tablets 04/06/2018 Medications Administered in Office Medication SIG Qnty Indications Ordering Provider Date Inj, Regadenoson, 0.1 MG Jason Licona M.D., 04/06/2017 Injection NADER HARDEN Technetium TC 99M Jason Licona M.D., 04/06/2017 Tetrofosmin, Per Unit Dose NADER HARDEN Up To 40 Millicuries Injection Vital Signs Date Vital Result Comment 04/06/2019 1:52pm Height 62 inches 5'2" Weight 137.00 lb Heart Rate 72 /min BP Systolic 120 mmHg BP Diastolic 62 mmHg Respiratory Rate 14 /min Body Temperature 96.8 F BMI (Body Mass Index) 25.1 kg/m2 01/26/2019 10:03am Height 62 inches 5'2" Weight 135.00 lb Heart Rate 60 /min BP Systolic Sitting 106 mmHg BP Diastolic Sitting 62 mmHg BMI (Body Mass Index) 24.7 kg/m2 07/28/2018 10:22am Height 62 inches 5'2" Weight 141.00 lb Heart Rate 72 /min BP Systolic 114 mmHg BP Diastolic 68 mmHg Respiratory Rate 16 /min BMI (Body Mass Index) 25.8 kg/m2 04/07/2018 11:11am Height 62 inches 5'2" Weight 152.12 lb Heart Rate 68 /min BP Systolic Sitting 90 mmHg BP Diastolic Sitting 66 mmHg BP Systolic Standing 110 mmHg BP Diastolic Standing 62 mmHg Respiratory Rate 28 /min BMI (Body Mass Index) 27.8 kg/m2 Ejection Fraction 50-55% 03-11-2017x 01/13/2018 1:42pm Height 62 inches 5'2" Weight 147.00 lb Heart Rate 92 /min BP Systolic Sitting 102 mmHg BP Diastolic Sitting 58 mmHg Respiratory Rate 15 /min BMI (Body Mass Index) 26.9 kg/m2 06/17/2017 1:55pm Height 62 inches 5'2" Weight 153.00 lb Heart Rate 76 /min BP Systolic Sitting 98 mmHg BP Diastolic Sitting 66 mmHg Respiratory Rate 14 /min BMI (Body Mass Index) 28.0 kg/m2 04/22/2017 9:38am Height 62 inches 5'2" Weight 162.00 lb with shoes Heart Rate 72 /min BP Systolic Sitting 110 mmHg Lue lg cuff BP Diastolic Sitting 64 mmHg Lue lg cuff BP Systolic Standing 110 mmHg Lue lg cuff BP Diastolic Standing 60 mmHg Lue lg cuff Respiratory Rate 16 /min BMI (Body Mass Index) 29.6 kg/m2 Ejection Fraction 50-55% date 03/11/2017 ECHO 03/04/2017 10:01am Height 62 inches 5'2" Weight 166.00 lb with shoes Heart Rate 68 /min BP Systolic Sitting 100 mmHg Rue reg cuff BP Diastolic Sitting 60 mmHg Rue reg cuff BP Systolic Standing 100 mmHg Rue reg cuff BP Diastolic Standing 62 mmHg Rue reg cuff Respiratory Rate 16 /min BMI (Body Mass Index) 30.4 kg/m2 Ejection Fraction 50-55% date 09/26/15 ECHO 12/16/2016 1:40pm Height 62 inches 5'2" Weight 161.50 lb Heart Rate 72 /min BP Systolic Sitting 118 mmHg BP Diastolic Sitting 68 mmHg Respiratory Rate 16 /min BMI (Body Mass Index) 29.5 kg/m2 12/02/2016 12:39pm Height 62 inches 5'2" Weight 163.00 lb Heart Rate 70 /min BP Systolic Sitting 126 mmHg right arm,reg cuff BP Diastolic Sitting 70 mmHg right arm,reg cuff BP Systolic Standing 118 mmHg right arm, reg cuff BP Diastolic Standing 66 mmHg right arm, reg cuff Respiratory Rate 16 /min BMI (Body Mass Index) 29.8 kg/m2 Ejection Fraction 50-55% 09/28/15 10/14/2016 12:42pm Height 62 inches 5'2" Weight 164.00 lb without shoes Heart Rate 82 /min BP Systolic Sitting 110 mmHg Lue reg cuff BP Diastolic Sitting 80 mmHg Lue reg cuff BP Systolic Standing 118 mmHg Lue reg cuff BP Diastolic Standing 72 mmHg Lue reg cuff Respiratory Rate 16 /min BMI (Body Mass Index) 30.0 kg/m2 Ejection Fraction 50-55% date 09/28/15 ECHO 09/10/2016 8:16am Heart Rate 84 /min Respiratory Rate 20 /min Pain Level 6 04/09/2016 2:50pm Height 62.5 inches 5'2.50" Weight 162.50 lb Heart Rate 80 /min BP Systolic Sitting 112 mmHg BP Diastolic Sitting 68 mmHg Respiratory Rate 14 /min BMI (Body Mass Index) 29.2 kg/m2 01/02/2016 10:50am Height 62.5 inches 5'2.50" Weight 164.00 lb Patient reported this Am Heart Rate 68 /min BP Systolic Sitting 128 mmHg BP Diastolic Sitting 66 mmHg Respiratory Rate 16 /min BMI (Body Mass Index) 29.5 kg/m2 10/15/2015 11:26am Height 62.5 inches 5'2.50" Weight 164.00 lb Pain Level 4 BMI (Body Mass Index) 29.5 kg/m2 10/10/2015 11:33am Height 62.5 inches 5'2.50" Weight 163.25 lb with shoes Heart Rate 76 /min BP Systolic Sitting 100 mmHg LA reg cuff BP Diastolic Sitting 72 mmHg LA reg cuff BP Systolic Standing 100 mmHg LA reg cuff BP Diastolic Standing 60 mmHg LA reg cuff Respiratory Rate 17 /min BMI (Body Mass Index) 29.4 kg/m2 02/12/2015 2:35pm Height 62.5 inches 5'2.50" Weight 164.00 lb Heart Rate 78 /min BP Systolic 113 mmHg BP Diastolic 63 mmHg Pain Level 0 BMI (Body Mass Index) 29.5 kg/m2 01/10/2015 1:20pm Height 62.5 inches 5'2.50" Weight 164.00 lb Heart Rate 65 /min BP Systolic 110 mmHg BP Diastolic 61 mmHg BMI (Body Mass Index) 29.5 kg/m2 10/09/2014 12:47pm Height 62 inches 5'2" Weight 168.00 lb BP Systolic Sitting 118 mmHg Ra reg cuff BP Diastolic Sitting 68 mmHg Ra reg cuff BP Systolic Standing 110 mmHg Ra reg cuff BP Diastolic Standing 68 mmHg Ra reg cuff Respiratory Rate 12 /min BMI (Body Mass Index) 30.7 kg/m2 09/02/2013 2:51pm Height 62 inches 5'2" Weight 168.00 lb Heart Rate 72 /min BP Systolic Sitting 122 mmHg Ra reg cuff BP Diastolic Sitting 72 mmHg Ra reg cuff BP Systolic Standing 120 mmHg Ra BP Diastolic Standing 72 mmHg Ra Respiratory Rate 18 /min BMI (Body Mass Index) 30.7 kg/m2 Results Test Date Facility Test Result H/L Range Note Laboratory test 03/11/2019 [facility] Surgical SEE RESULT [address] [place] [address] Order [phone] Influenza A & B 03/06/2019 [facility] Influenza A NEGATIVE Negative [address] [place] [address] [phone] Influenza B Molecular NEGATIVE Negative Urine Culture And 03/06/2019 [facility] Urine Culture SEE RESULT [address] [place] [address] [phone] Laboratory test 03/06/2019 [facility] Ferritin 37.1 ng/mL N 11 -[address] [place] [address] [phone] Iron & Iron Binding 03/06/2019 [facility] Iron 23 g/dL Low 50-[address] [place] [address] [phone] Unsaturated Iron Binding < 296 g/dL Total Iron Binding Capacity 311 g/dL N 250-450 Transferrin 222 mg/dL N 203-362 % Iron Saturation 7 % Low 15-55 Urinalysis Profile 03/06/2019 [facility] Urine Color Straw [address] [place] [address] [phone] Urine Appearance Cloudy Urine Specific [place] 1.009 Low 1.010-1.030 Urine pH 5.0 N 5-9 Urine Urobilinogen Negative Negative Urine Ketones Negative Negative Urine Protein Negative Negative Urine Leukocytes Negative Negative Urine Blood 1+ Abnormal Negative Urine Nitrite Negative Negative Urine Bilirubin Negative Negative Urine Glucose Negative Negative Urine White Blood Cell Trace(0-5/hpf) Absent Urine Red Blood Cell Trace(0-2/hpf) Absent Urine Bacteria Absent Absent Urine Squamous Epithelial Cell Present Abnormal Absent Urine Hyaline Casts Present Abnormal Absent Laboratory test 03/06/2019 [facility] Magnesium 2.4 mg/dL N 1.9-2.[address] [place] [address] [phone] Creatine Kinase(CK) 31 U/L N 10-223 C Reactive Protein 134.36 mg/L High <8.01 Troponin-I (TnI) 0.01 ng/mL <0.04 4 TSH (Thyroid Stim Horm) 7.82 mcIU/mL High 0.34-5.60 Comp Metabolic Panel 03/06/2019 [facility] Sodium 136 mmol/L N 135-[address] [place] [address] [phone] Potassium 4.1 mmol/L N 3.5-5.0 Chloride 104 mmol/L N 101-111 Co2 Carbon Dioxide 25 mmol/L N 22-32 Anion Gap 7 mmol/L N 2-11 Glucose 137 mg/dL High 70-100 Blood Urea Nitrogen 26 mg/dL High 6-24 Creatinine 0.94 mg/dL N 0.51-0.95 BUN/Creatinine Ratio 27.7 High 8-20 Calcium 9.0 mg/dL N 8.6-10.3 Total Protein 7.0 g/dL N 6.4-8.9 Albumin 3.6 g/dL N 3.2-5.2 Globulin 3.4 g/dL N 2-4 Albumin/Globulin Ratio 1.1 N 1-3 Total Bilirubin 0.40 mg/dL N 0.2-1.0 Alkaline Phosphatase 70 U/L N 34-104 Alt 4 U/L Low 7-52 Ast 9 U/L Low 13-39 Egfr Non- 56.7 >60 Egfr 68.6 >60 5 Laboratory test 03/06/2019 [facility] Lactic Acid 1.4 mmol/L N 0.5-2.0 [address] [place] [address] [phone] CBC Auto Diff 03/06/2019 [facility] White Blood 12.5 High 3.5- 10.[address] Count 10^3/[place] [address] [phone] Red Blood Count 3.30 10^6/uL Low 3.70-4.87 Hemoglobin 8.8 g/dL Low 12.0-16.0 Hematocrit 28 % Low 35-47 Mean Corpuscular Volume 83 fL N 80-97 Mean Corpuscular Hemoglobin 27 pg N 27-31 Mean Corpuscular HGB Conc 32 g/dL N 31-36 Red Cell Distribution Width 17 % High 10.5-15 Platelet Count 485 10^3/uL High 150-450 Mean Platelet Volume 7.1 fL Low 7.4-10.4 Abs Neutrophils 10.8 10^3/uL High 1.5-7.7 Abs Lymphocytes 0.4 10^3/uL Low 1.0-4.8 Abs Monocytes 1.3 10^3/uL High 0-0.8 Abs Eosinophils 0.0 10^3/uL N 0-0.6 Abs Basophils 0.1 10^3/uL N 0-0.2 Abs Nucleated RBC 0.0 10^3/uL Granulocyte % 85.9 % Lymphocyte % 3.0 % Monocyte % 10.5 % Eosinophil % 0.1 % Basophil % 0.5 % Nucleated Red Blood Cells % 0.0 Laboratory test 03/06/2019 [facility] B-Type 590 pg/mL High <= [address] [place] [address] Peptide BNP [phone] Inr/Protime 03/06/2019 [facility] Inr 2.50 High 0.82-1.[address] [place] [address] [phone] Basic Metabolic 03/13/2017 [facility] Sodium 139 N 133-[address] mmol/[place] [address] [phone] Potassium 4.6 mmol/L N 3.5-5.0 Chloride 104 mmol/L N 101-111 Co2 Carbon Dioxide 29 mmol/L N 22-32 Anion Gap 6 mmol/L N 2-11 Glucose 99 mg/dL N 70-100 Blood Urea Nitrogen 24 mg/dL N 6-24 Creatinine 0.93 mg/dL N 0.51-0.95 BUN/Creatinine Ratio 25.8 High 8-20 Calcium 9.5 mg/dL N 8.6-10.3 Egfr Non- 57.7 N >60 Egfr 74.2 N >60 8 Laboratory test 11/24/2016 [facility] Surgical SEE RESULT [address] [place] [address] [phone] 1 SEE RESULT BELOW Name: MELINA WEISS : [address]: Maryam Alcocer MD Acct: [id number] Unit: [id number] AGE: 83 Location: [place] [address] Re03/06/19 Dis: 03/14/19 SEX: F Status: DIS IN SPEC: [id number] SCOOBY: 03/11/19- [facility] DR: Jadon Alfaro DO REQ: [id number] RECD: 03/11/19 STATUS: DREW NAILS DR: Art Hernandez [facility] Mingo Finley MD _ ORDERED: LEVEL 4, IMMUNO-FIRST, IMMUNO-ADDL/4 ADDENDUM Immunohistochemical stains, with appropriately reacting controls, were performed with the following results: MLH-1 absent PMS-2 absent MSH-6 present MSH-2 present BRAF negative Absence of expression of one or more mismatch repair proteins indicates microsatellite instability from either a somatic or germline mutation. Consideration of genetic counseling with possible additional testing is warranted to exclude Cartwright Syndrome. Addendum Signed (signature on file) Chantel Lozoya MD 1003 FINAL DIAGNOSIS Colon, cecum, biopsy: -- Invasive adenocarcinoma, moderately differentiated. CONTINUED ON NEXT PAGE DEPARTMENT OF PATHOLOGY, [address] [place] [address] Luis Jones M.D. Director [facility] # [id number] RUN DATE: 03/16/19 [facility] LAB LIVE PAGE 2 Patient: MELINA WEISS Dharmesh [id number] (Continued) FINAL DIAGNOSIS (Continued) COMMENT: Mismatch repair protein and BRAF immunohistochemistry are pending and the results will be reported in an addendum. Dr. Jones reviewed this case in intradepartmental consultation and agrees with the diagnosis. CLINICAL HISTORY Abnormal CT POST-OPERATIVE DIAGNOSIS Colonoscopy: to cecum; cecal with deep ulceration; biopsy; diverticulosis coli; good prep; conclusions: awaiting biopsy; likely adenocarcinoma; high risk for perf. Unknown surgery vs palliative care GROSS DESCRIPTION The specimen is received in formalin labeled, Biopsy Cecal Mass, and consists of a 0.6 x 0.5 x 0.2 cm aggregate of felix-white irregular soft tissue fragments which is submitted entirely in one cassette. Signed by and Reported on: Chantel Lozoya MD 03/15/19 1211 END OF REPORT DEPARTMENT OF PATHOLOGY, [address] [place] [address] Luis Jones M.D. Director [facility] # [id number] 2 Slope Tender: [id number] 3 SEE RESULT BELOW Name: MELINA WEISS : [address]: Jennifer Arana MD Acct: [id number] Unit: [id number] AGE: 83 Location: [place] [address] Re03/06/19 SEX: F Status: ADM IN SPEC: [id number] SCOOBY: 03/06/19-[address] [facility] [address]: Hunter Suarez MD REQ: [id number] RECD: 03/06/19 STATUS: BHAVANI NAILS DR: Art Lan MD _ SOURCE: URINE SPDES: ORDERED: Urine Culture Procedure Result Reported Site Urine Culture Final 03/07/19- 1601 ML No growth of clinically significant organisms * ML - Main Lab . END OF REPORT DEPARTMENT OF PATHOLOGY, [address] [place] [address] Luis Jones M.D. Director [facility] # [id number] 4 Troponin-I testing on Plasma Separator Tubes (PST) has a known false positive rate of 0.20-0.40%. All positive troponins reflex immediately to secondary confirmatory testing. Using the [employer] DxI 800 Access Immunoassay systems, the 99th percentile upper reference limit was demonstrated to be < 0.03 ng/mL. 5 Because ethnic data is not always readily available, this report includes an eGFR for both -Americans and non- Americans. The National Kidney Disease Education Program (NKDEP) does not endorse the use of the MDRD equation for patients that are not between the ages of 18 and 70, are , have extremes of body size, muscle mass, or nutritional status, or are non- or non-. According to the National Kidney Foundation, irrespective of diagnosis, the stage of the disease is based on the level of kidney function: Stage Description GFR(mL/min/1.73 m(2)) 1 Kidney damage with normal or decreased GFR 90 2 Kidney damage with mild decrease in GFR 60-89 3 Moderate decrease in GFR 30-59 4 Severe decrease in GFR 15-29 5 Kidney failure <15 (or dialysis) 6 [facility] Severe Sepsis and Septic Shock Management Bundle Measure requires all lactic acids initially measuring >2.0 mmol/L be repeated. 7 Standard intensity warfarin therapeutic range: 2.0-3.0 High intensity warfarin therapeutic range: 2.5-3.5 8 Because ethnic data is not always readily available, this report includes an eGFR for both -Americans and non- Americans. The National Kidney Disease Education Program (NKDEP) does not endorse the use of the MDRD equation for patients that are not between the ages of 18 and 70, are , have extremes of body size, muscle mass, or nutritional status, or are non- or non-. According to the National Kidney Foundation, irrespective of diagnosis, the stage of the disease is based on the level of kidney function: Stage Description GFR(mL/min/1.73 m(2)) 1 Kidney damage with normal or decreased GFR 90 2 Kidney damage with mild decrease in GFR 60-89 3 Moderate decrease in GFR 30-59 4 Severe decrease in GFR 15-29 5 Kidney failure <15 (or dialysis) 9 SEE RESULT BELOW Name: MELINA WEISS : [address]: Deshawn Fagan MD Acct: [id number] Unit: [id number] AGE: 81 Location: [facility] Re11/24/16 SEX: F Status: REG REF SPEC: [id number] SCOOBY: 11/24/16-[address]: Deshawn Fagan MD REQ: [id number] RECD: 11/24/16 STATUS: SOUT _ ORDERED: LEVEL I FINAL DIAGNOSIS Pacemaker generator, removal: Foreign body (pacemaker generator) (Gross diagnosis). PRE-OPERATIVE DIAGNOSIS Sick sinus syndrome GROSS DESCRIPTION The specimen is received fresh with no source identified, and consists of a 4.6 x 4.4 x 0.7 cm [employer] medical claims representative. The following inscription is identified: IS -1 [employer] ADDR01 DDDR SN [id number] [facility] [place]. Per established hospital medical staff protocol, no tissue is submitted. Gross only. Signed (signature on file) Luis Jones MD 1624 END OF REPORT * ML=Testing performed at Main Lab DEPARTMENT OF PATHOLOGY, [address] [place] [address] Luis Jones M.D. Director [facility] # [id number] Procedures Date Code Description Status 03/11/2019 60860718 Colonoscopy Completed 03/07/2019 52659 ECHO Transthorasic Realtime 2D W Doppler & Color Flow Completed Hosp 02/28/2019 92215 Pace Maker Eval W/Iterative Adjustment Single Lead Completed 02/28/2019 71595 Pace Maker Eval W/Iterative Adjustment Single Lead Completed 09/02/2018 14185 Pace Maker Eval W/Iterative Adjustment Single Lead Completed 09/02/2018 78479 Pace Maker Eval W/Iterative Adjustment Single Lead Completed 04/07/2018 74403 EKG Tracing & Interpretation Completed 03/03/2018 12744 Pace Maker Eval W/Iterative Adjustment Single Lead Completed 03/03/2018 15266 Pace Maker Eval W/Iterative Adjustment Single Lead Completed 09/09/2017 31187 Pace Maker Eval W/Iterative Adjustment Single Lead Completed 09/09/2017 80583 Pace Maker Eval W/Iterative Adjustment Single Lead Completed 04/06/2017 28933 Myocardial Perfusion Imaging Tomographic (Spect) Completed Multiple Studies 04/06/2017 84195 Stress Test Completed 03/16/2017 27763 Echocardiogram, Limited Study Completed 03/11/2017 33415 ECHO Transthoracic, Real-Time 2D With Doppler And Color Completed Flow 02/25/2017 96340 Pace Maker Eval W/Iterative Adjustment Single Lead Completed 11/24/2016 99087 Removal Pacemaker W/Replacement Of Pacemaker Pulse Completed Generator 11/14/2016 39574 Interrogation Device Eval In Person W/DR Completed Analysis,Single,Dual,Mul 10/14/2016 13642 Interrogation Device Eval In Person W/DR Completed Analysis,Single,Dual,Mul 10/14/2016 85777 Interrogation Device Eval In Person W/DR Completed Analysis,Single,Dual,Mul 08/20/2016 07443 Pace Maker Eval W/Iterative Adjustment Single Lead Completed 02/12/2016 34495 Pace Maker Eval W/Iterative Adjustment Single Lead Completed 10/10/2015 79436 EKG Tracing & Interpretation Completed 09/28/2015 54040 ECHO Transthoracic, Real-Time 2D With Doppler And Color Completed Flow 09/25/2015 65192 Echocardiogram, Limited Study Completed 09/25/2015 08888 ECHO Transthoracic, Real-Time 2D With Doppler And Color Completed Flow 08/13/2015 62279 Interrogation Device Eval In Person W/DR Completed Analysis,Single,Dual,Mul 02/14/2015 59773 Interrogation Device Eval In Person W/DR Completed Analysis,Single,Dual,Mul 10/09/2014 74818 EKG Tracing & Interpretation Completed 10/03/2014 26348 Echocardiogram, Limited Study Completed 10/03/2014 11811 ECHO Transthoracic, Real-Time 2D With Doppler And Color Completed Flow 08/30/2014 84418 ECHO Transthoracic, Real-Time 2D With Doppler And Color Completed Flow 08/16/2014 90179 Pace Maker Eval W/Iterative Adjustment Single Lead Completed 02/15/2014 16162 Pace Maker Eval W/Iterative Adjustment Single Lead Completed 09/02/2013 51134 EKG Tracing & Interpretation Completed 08/17/2013 93050 Pace Maker Eval W/Iterative Adjment Dual Lead Completed 08/12/2013 45750 ECHO Transthoracic, Real-Time 2D With Doppler And Color Completed Flow 08/09/2013 51364 Echocardiogram, Limited Study Completed 02/14/2013 99116 Pace Maker Eval W/Iterative Adjment Dual Lead Completed 02/14/2013 20275 EKG Tracing & Interpretation Completed 08/10/2012 09887 Pace Maker Eval W/Iterative Adjment Dual Lead Completed 03/30/2007 33449 EKG, Interpretation Only Completed 03/30/2007 22742 EKG, Interpretation Only Completed Encounters Type Date Location Provider Dx Diagnosis Office Visit 04/06[facility]2019 [facility] Ashutosh Baptiste C18.0 Malignant 1:30p Of Maranda Renee MD neoplasm of cecum [facility] Other specified 8:24a Infectious Diseases Caio [place] diseases of intestine R78.81 Bacteremia B96.89 Ot bacterial agents as the cause of diseases classd elswhr Office Visit 03/14/2019 7:00a [facility] Ashutosh Baptiste C18.0 Malignant Of Maranda Renee MD neoplasm of cecum Office Visit 03/14/2019 10:06a [facility] Maryam Alcocer K63.89 Other specified Assoc,radha [facility] diseases of Hospitalists intestine G20 Parkinson's disease I50.30 Unspecified diastolic (congestive) heart failure I49.5 Sick sinus syndrome I48.91 Unspecified atrial fibrillation E03.9 Hypothyroidism, unspecified Office Visit 03/14/2019 10:07a Palliative [facility] Sia G20 [facility] Maranda Denson MD disease J81.1 Chronic pulmonary edema Office Visit 03/13/2019 10:06a [facility] Maryam Alcocer, K63.89 Other specified Assoc,radha [facility] Hospitalists intestine A04.72 Enterocolitis d/t Clostridium difficile, not spcf as recur I50.9 Heart failure, unspecified I48.2 Chronic atrial fibrillation D64.9 Anemia, unspecified G20 Parkinson's disease E03.9 Hypothyroidism, unspecified Office Visit 03/12/2019 [facility] Lisa Baeza K52.89 Other specified 7:00a Associates Of noninfective Maranda gastroenteritis and colitis K63.89 Other specified diseases of intestine Office Visit 03/12/2019 10:06a [facility] Sandy Saha K63.89 Other specified Assoc,radha [facility] Hospitalists intestine A04.72 Enterocolitis d/t Clostridium difficile, not spcf as recur D64.9 Anemia, unspecified I48.2 Chronic atrial fibrillation I50.9 Heart failure, unspecified G20 Parkinson's disease E03.9 Hypothyroidism, unspecified Office Visit 03/11/2019 [facility] Maryam A04.72 Enterocolitis d/t 10:02a radha Schneider MD Clostridium Hospitalists difficile, not spcf as recur I50.9 Heart failure, unspecified I48.2 Chronic atrial fibrillation D64.9 Anemia, unspecified G20 Parkinson's disease Office Visit 03/10/2019 [facility] Maryam A04.72 Enterocolitis d/t 10:02a radha Schneider MD Clostridium Hospitalists difficile, not spcf as recur I50.9 Heart failure, unspecified I48.2 Chronic atrial fibrillation D64.9 Anemia, unspecified Office Visit 03/09/2019 [facility] Ashutosh Baptiste K52.89 Other specified 7:00a [facility] MD noninfective gastroenteritis and colitis Office Visit 03/09/2019 [facility] K52.9 Noninfective 10:01a Assradha babcock MD gastroenteritis and Hospitalists colitis, unspecified I50.9 Heart failure, unspecified I48.2 Chronic atrial fibrillation D64.9 Anemia, unspecified Office 03/08/2019 Surgical Ramiro Brock K52.89 Other specified Visit 7:00a [facility] PA noninfective gastroenteritis and colitis Office 03/08/2019 [facility] Maryam Alcocer, K52.9 Noninfective Visit 10:01a radha Schneider MD gastroenteritis and Hospitalists colitis, unspecified I50.9 Heart failure, unspecified I48.2 Chronic atrial fibrillation D64.9 Anemia, unspecified Office Visit 03/07/2019 7:00a Surgical Ashutosh Baptiste K63.89 Other specified [facility] MD Thelma diseases of intestine R10.31 Right lower quadrant pain Office Visit 03/07/2019 [facility] Jennifer K52.9 Noninfective 10:00a radha Schneider M.D. gastroenteritis and Hospitalists colitis, unspecified I50.9 Heart failure, unspecified G20 Parkinson's disease I48.2 Chronic atrial fibrillation D64.9 Anemia, unspecified Office Visit 03/06/2019 10:00a [facility] Mingo Lopes, R10.31 Right lower radha Schneider MD quadrant pain Hospitalists A41.9 Sepsis, unspecified organism G20 Parkinson's disease I48.91 Unspecified atrial fibrillation E03.9 Hypothyroidism, unspecified I50.9 Heart failure, unspecified Office Visit 01/26/2019 10:00a [facility] Todd Hector G20 [facility] M.D. 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 Office Visit 06/17/2017 1:45p [place] Bobby Hector G20 Parkinson's disease [facility] M.[facility] Office Visit 04/22/2017 10:15a [facility] Jason Joshi I48.2 Chronic atrial [facility] Licona M.D., fibrillation [facility] Z95.0 Presence of cardiac pacemaker Office Visit 03/04/2017 10:15a [facility] Jason Joshi R60.9 Edema, unspecified [facility] Caio Licona, [facility], [facility] R06.00 Dyspnea, unspecified Office Visit 12/16/2016 1:30p Arron Hector G2Juno Parkinson's [facility]rolog[facility] Lan disease [facility] Office Visit 10/14/2016 1:15p [place] Jason Joshi I48.91 Unspecified atrial [facility]iology [facility] Licona, fibrillation [facility] I48.2 Chronic atrial fibrillation Office Visit 09/10/2016 8:15a [facility] Melissa Thompson, M25.551 Pain in right Of [facility] Ca[facility] hip M16.11 Unilateral primary osteoarthritis, right hip Office Visit 04/09/2016 [place] Todd Hector G20 Parkinson's disease 3:00p Neurologic [facility] Lan [facility] Office Visit 01/02/2016 [place] Hector G2Juno Parkinson's disease 11:00a Neurolog[facility] Lan [facility] Office Visit 10/15/2015 Orth[facility] Melissa Thompson, M16.12 Unilateral primary 11:30a [facility] Ca[facility] osteoarthritis, left [facility] hip Office Visit 10/10/2015 [place] Jason Joshi Q21.1 Atrial septal defect 11:45a [facility] Licona [facility], [facility] Office Visit 02/12/2015 Orth[facility] Melissa Thompson, 715.95 Osteoarthrosis 2:30p [facility] Unspec Genlzd Or [facility] Localized Pelvic & Thigh Office Visit 01/10/2015 Orthopedic Melissa Thompson, 715.96 Osteoarthrosis 1:00p [facility] Unspec Genlzd Or [facility] Localized Lower Leg 715.95 Osteoarthrosis Unspec Genlzd Or Localized Pelvic & Thigh Office Visit 10/09/2014 12:45p [facility] Jasonkizzy Joshi 427.31 Atrial Of Maranda Licona M.D., Fibrillation [facility], [facility] Office Visit 09/02/2013 2:30p [facility] Jason Joshi 427.31 Atrial Of [facility] Licona M.D., Fibrillation [facility] Office Visit 08/23/2012 8:45a [facility] Jason Joshi 427.31 Atrial Of [facility] Licona M.D., Fibrillation [facility] [place] Plan of Treatment Future Appointment(s):04/20/2019 1:15 pm - Jason Licona M.D., DERECK, NADER at [facility]08/03/2019 9:45 am - Todd Lan M.D. at [facility]04/06/2019 - Ashutosh Renee, MDC18.0 Malignant neoplasm of cecumComments:we had a long discussion about surgery and its risks ibnlt surgical postop course, quality of life. 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 she will call office if she wishes to proceed
--- OUTSIDE RECORDS SUMMARY | 2019-05-10 21:08 | XMS REPORT | Continuity of Care Document ---
:1935 External Reference #:[id number] Author Name Cristal Waters Care Team Providers Name Role Phone Art Dee MD Primary Care Physician Unavailable Payers Date Identification Numbers Payment Provider Subscriber Policy Number: [id number] Medicare Melina Weiss PayID: [id number] [address] [place] [address] Policy Number: [id number] [facility] Melina Weiss PayID: [id number] [address] [place] [address] Problems Active Problems Provider Date Atrial fibrillation Jason Licona M.D., [facility], Onset: 09/02/2013 FASNC Ostium secundum type atrial septal Jason Licona M.D., [facility], Onset: 10/10 defect FASNC Localized, primary osteoarthritis of Melissa Thompson M.D. Onset: 09/10/2016 the pelvic region and thigh Edema Jason Licona M.D., [facility], Onset: 03/04/2017 FASNC Difficulty breathing Jason Licona M.D., [facility], Onset: 03/04/2017 FASNC Chronic atrial fibrillation Jason Licona M.D., [facility], Onset: 04/07/2018 FASNC Anemia Sandy Saha MD Onset: 03/12/2019 Electrocardiogram abnormal Jason Licona M.D., [facility], Onset: 04/20/2019 FASNC Family History Date Family Member(s) Observation Comments General Diabetes General Heart Disease General Cancer General Thyroid Disease Siblings 1 brother, living no known CAD Social History Type Date Description Comments Sex Unknown Marital Status Lives With Alone Occupation Retired Hand Dominance Right-handed ETOH Use Denies alcohol use Tobacco Use Start: Unknown End: Patient is a former quit 40 years ago Unknown smoker Recreational Drug Use Never Used Drugs Smoking Status Reviewed: 04/20/19 Patient is a former quit 40 years [...] Joshi 03/04/2017 40mg Tablets morning Caio Licona, [facility], FASNM Carbidopa-Levodopa 1 tab by mouth 270tabs G20 Todd Hector 01/02/2016 three times a day Caio Lan 25-100mg Tablets after meals Vitamin C 1 by mouth every Unknown 500mg day Capsules Ferrous Sulfate 1 by mouth every Unknown day 325(65Fe) mg Tablets Levothyroxine Sodium 1 by mouth every Unknown day 75mcg Tablets Refresh Eye Drops prn Unknown Tylenol Arthritis 2 po q8hrs prn 100tabs Unknown Pain 650mg Tablets ER Klor-Con 10 1 po qd Am (taken 90tabs Unknown 10Meq along with Tablets ER Furosemide) Atenolol 1 po bid 90tabs Unknown 50mg Tablets Warfarin Sodium 5 mg mon, Wed 100tabs Unknown 5mg fri... and then Tablets 2.5mg tues, thurs, sat , sun take as directed ( adjustment made Dr. Dee) History Medications Alprazolam 1 po qd prn 14tabs F06.4 Todd Hector 01/26/2019 - 0.5mg Tablets anxiety Caio Lan Unknown Clindamycin HCL one capsule by 9cbarbie Carreno 11/24/2016 - 150mg mouth three Brand, M.D. 12/01/2016 Capsules times a day for 3 days Levothyroxine Sodium 1 po qd Unknown - 01/26/2019 112mcg Tablets Diltiazem HCL 1 po b.i.d 90tabs Unknown - 120mg 04/19/2019 Tablets Furosemide 1 po qam 30tabs Unknown - 20mg Tablets 03/04/2017 Diazepam prn 2tabs Unknown - 5mg Tablets 04/19/2019 Meclizine HCL 1 po tid prn 90tabs Unknown - 25mg 04/19/2019 Tablets Tylenol PM as needed Unknown - Tablets 04/06/2018 Colace 2 tabs every Unknown - 100mg Capsules night 04/19/2019 Medications Administered in Office Medication SIG Qnty Indications Ordering Provider Date Inj, Regadenoson, 0.1 MG Jason Licona M.D., 04/06/2017 Injection NADER HARDEN Technetium TC 99M Jason Licona M.D., 04/06/2017 Tetrofosmin, Per Unit Dose NADER HARDEN Up To 40 Millicuries Injection Vital Signs Date Vital Result Comment 04/20/2019 12:51pm Height 62 inches 5'2" Weight 131.00 lb Heart Rate 74 /min Radial BP Systolic Sitting 110 mmHg Lue reg cuff BP Diastolic Sitting 60 mmHg Lue reg cuff BMI (Body Mass Index) 24.0 kg/m2 04/06/2019 1:52pm Height 62 inches 5'2" Weight [...] Result H/L Range Note Laboratory test 03/11/2019 [facility] Surgical SEE RESULT [address] [place] [address] Order [phone] Influenza A & B 03/06/2019 [facility] Influenza A NEGATIVE Negative [address] Molecular [place], [place] [id number] [phone] Influenza B Molecular NEGATIVE Negative Urine Culture And 03/06/2019 [facility] Urine Culture SEE RESULT [address] BELOW [place], [place] [id number] [phone] Laboratory test 03/06/2019 [facility] Ferritin 37.1 ng/mL N 11 -[address] [place] [address] [phone] Iron & Iron Binding 03/06/2019 [facility] Iron 23 g/dL Low 50-[address] [place] [address] [phone] Unsaturated Iron Binding < 296 g/dL Total Iron Binding Capacity 311 g/dL N 250-450 Transferrin 222 mg/dL N 203-362 % Iron Saturation 7 % Low 15-55 Urinalysis Profile 03/06/2019 [facility] Urine Color Straw [address] [place] [address] [phone] Urine Appearance Cloudy Urine Specific Kellogg 1.009 Low 1.010-1.030 Urine pH 5.0 N [...] Casts Present Abnormal Absent Laboratory test 03/06/2019 [facility] Magnesium 2.4 mg/dL N 1.9-2.[address] [place] [address] [phone] Creatine Kinase(CK) 31 U/L N 10-223 C Reactive Protein 134.36 mg/L High <8.01 Troponin-I (TnI) 0.01 ng/mL <0.04 4 TSH (Thyroid Stim Horm) 7.82 mcIU/mL High 0.34-5.60 Comp Metabolic Panel 03/06/2019 [facility] Sodium 136 mmol/L N 135-[address] [place] [address] [phone] Potassium 4.1 mmol/L N 3.5-5.0 Chloride 104 [...] Egfr 68.6 >60 5 Laboratory test 03/06/2019 [facility] Lactic Acid 1.4 mmol/L N 0.5-2.[address] [place] [address] [phone] CBC Auto Diff 03/06/2019 [facility] White Blood 12.5 High 3.5- 10.[address] Count 10^3/[place] [address] [phone] Red Blood Count 3.30 10^6/uL Low 3.70-4.87 [...] Blood Cells % 0.0 Laboratory test 03/06/2019 [facility] B-Type 590 pg/mL High <= [address] [place] [address] Peptide BNP [phone] Inr/Protime 03/06/2019 [facility] Inr 2.50 High 0.82-1.[address] [place] [address] [phone] Basic Metabolic 03/13/2017 [facility] Sodium 139 N 133-[address] mmol/[place] [address] [phone] Potassium 4.6 mmol/L N 3.5-5.0 Chloride 104 mmol/L N 101-111 Co2 Carbon Dioxide 29 mmol/L N 22-32 Anion Gap 6 mmol/L N 2-11 Glucose 99 mg/dL N 70-100 Blood Urea Nitrogen 24 mg/dL N 6-24 Creatinine 0.93 mg/dL N 0.51-0.95 BUN/Creatinine Ratio 25.8 High 8-20 Calcium 9.5 mg/dL N 8.6-10.3 Egfr Non- 57.7 N >60 Egfr 74.2 N >60 8 Laboratory test 11/24/2016 [facility] Surgical SEE RESULT [address] Pathology BELOW [place], [place] [id number] [phone] 1 SEE RESULT BELOW Name: CEFERINOMELINA Dharmesh : [address]: Maryam Alcocer MD Acct: [id number] Unit: [id number] AGE: 83 Location: [place] [address] Re03/06/19 Dis: 03/14/19 SEX: F Status: DIS IN SPEC: [id number] SCOOBY: 03/11/19- SUBM DR: Jadon Alfaro DO REQ: [id number] RECD: 03/11/19 STATUS: DREW NAILS DR: Art Hernandez [facility] Mingo Finley MD _ ORDERED: LEVEL [...] CONTINUED ON NEXT PAGE DEPARTMENT OF PATHOLOGY, [address] [place] [address] Luis Jones M.D. Director MIRIAM[facility] # [id number] RUN DATE: 03/16/19 [facility] LAB LIVE PAGE 2 Patient: MEILNA WEISS [id number] (Continued) FINAL DIAGNOSIS (Continued) COMMENT: Mismatch repair [...] 1211 END OF REPORT DEPARTMENT OF PATHOLOGY, [address] [place] [address] Luis Jones M.D. Director [facility] # [id number] 2 Oracle Database Architect: [id number] SEE RESULT BELOW Name: MELINA WEISS : [address]: Jennifer Arana MD Acct: [id number] Unit: [id number] AGE: 83 Location: [place] [address] Re03/06/19 SEX: F Status: ADM IN SPEC: [id number] SCOOBY: 03/06/19-[address]: Hunter Suarez MD REQ: [id number] RECD: 03/06/19 STATUS: COMP JAQUI DR: Art Lan MD _ SOURCE: URINE SPDESC: ORDERED: Urine Culture Procedure Result Reported Site Urine Culture Final 03/07/19- 1601 ML No growth of clinically significant organisms * ML - Main Lab . END OF REPORT DEPARTMENT OF PATHOLOGY, [address] [place] [id number] Luis Jones M.D. Director [facility] # [id number] 4 Troponin-I testing on Plasma Separator Tubes (PST) has a known false positive rate of 0.20-0.40%. All positive troponins reflex immediately to secondary confirmatory testing. Using the [employer] DxI 800 Access Immunoassay systems, the 99th [...] 5 Kidney failure <15 (or dialysis) 6 [facility] Severe Sepsis and Septic Shock Management Bundle [...] [address]: Deshawn Fagan MD Acct: [id number] Unit: [id number] AGE: 81 Location: [facility] Re11/24/16 SEX: F Status: REG REF SPEC: [id number] SCOOBY: 11/24/16-[address] [facility] [address]: Deshawn Fagan MD REQ: [id number] RECD: 11/24/16 STATUS: SOUT _ ORDERED: LEVEL I FINAL DIAGNOSIS Pacemaker generator, removal: Foreign body (pacemaker generator) (Gross diagnosis). 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 The following inscription is identified: IS -1 [employer] ADDR01 DDDR SN [id number] [facility]. Per established hospital medical staff protocol, no tissue is submitted. Gross only. Signed (signature on file) Luis Jones MD 1624 END OF REPORT * ML=Testing performed at Main Lab DEPARTMENT OF PATHOLOGY, [address] [place] [address] Luis Jones M.D. Director [facility] # [id number] Procedures Date Code Description Status 04/20/2019 80039 EKG Tracing & Interpretation Completed 03/11/2019 25397254 Colonoscopy Completed 03/07/2019 74044 ECHO Transthorasic Realtime 2D W Doppler & Color Flow Completed Hosp 02/28/2019 35995 Pace Maker Eval W/Iterative Adjustment Single Lead Completed 02/28/2019 13215 Pace Maker Eval W/Iterative Adjustment Single Lead Completed 09/02/2018 06961 Pace Maker Eval W/Iterative Adjustment Single Lead Completed 09/02/2018 35515 Pace Maker Eval W/Iterative Adjustment Single Lead Completed 04/07/2018 07269 EKG Tracing & Interpretation Completed 03/03/2018 98863 Pace Maker Eval W/Iterative Adjustment Single Lead Completed 03/03/2018 59225 Pace Maker Eval W/Iterative Adjustment Single Lead Completed 09/09/2017 97327 Pace Maker Eval W/Iterative Adjustment Single Lead Completed 09/09/2017 61864 Pace Maker Eval W/Iterative Adjustment Single Lead Completed 04/06/2017 90704 Myocardial Perfusion Imaging Tomographic (Spect) Completed Multiple Studies 04/06/2017 78093 Stress Test Completed 03/16/2017 78217 Echocardiogram, Limited Study Completed 03/11/2017 97355 ECHO Transthoracic, Real-Time 2D With Doppler And Color Completed Flow 02/25/2017 28931 Pace Maker Eval W/Iterative Adjustment Single Lead Completed 11/24/2016 43802 Removal Pacemaker W/Replacement Of Pacemaker Pulse Completed Generator 11/14/2016 00087 Interrogation Device Eval In Person W/ Completed Analysis,Single,Dual,Mul 10/14/2016 10389 Interrogation Device Eval In Person W/ Completed Analysis,Single,Dual,Mul 10/14/2016 06918 Interrogation Device Eval In Person W/DR Completed Analysis,Single,Dual,Mul 08/20/2016 31500 Pace Maker Eval W/Iterative Adjustment Single Lead Completed 02/12/2016 22777 Pace Maker Eval W/Iterative Adjustment Single Lead Completed 10/10/2015 54115 EKG Tracing & Interpretation Completed 09/28/2015 47679 ECHO Transthoracic, Real-Time 2D With Doppler And Color Completed Flow 09/25/2015 23861 Echocardiogram, Limited Study Completed 09/25/2015 85412 ECHO Transthoracic, Real-Time 2D With Doppler And Color Completed Flow 08/13/2015 83535 Interrogation Device Eval In Person W/DR Completed Analysis,Single,Dual,Mul 02/14/2015 86655 Interrogation Device Eval In Person W/DR Completed Analysis,Single,Dual,Mul 10/09/2014 23988 EKG Tracing & Interpretation Completed 10/03/2014 89615 Echocardiogram, Limited Study Completed 10/03/2014 19276 ECHO Transthoracic, Real-Time 2D With Doppler And Color Completed Flow 08/30/2014 68863 ECHO Transthoracic, Real-Time 2D With Doppler And Color Completed Flow 08/16/2014 11829 Pace Maker Eval W/Iterative Adjustment Single Lead Completed 02/15/2014 65069 Pace Maker Eval W/Iterative Adjustment Single Lead Completed 09/02/2013 23801 EKG Tracing & Interpretation Completed 08/17/2013 17750 Pace Maker Eval W/Iterative Adjment Dual Lead Completed 08/12/2013 55290 ECHO Transthoracic, Real-Time 2D With Doppler And Color Completed Flow 08/09/2013 81698 Echocardiogram, Limited Study Completed 02/14/2013 40924 Pace Maker Eval W/Iterative Adjment Dual Lead Completed 02/14/2013 50461 EKG Tracing & Interpretation Completed 08/10/2012 22195 Pace Maker Eval W/Iterative Adjment Dual Lead Completed 03/30/2007 30911 EKG, Interpretation Only Completed 03/30/2007 47013 EKG, Interpretation Only Completed Encounters Type Date Location Provider Dx Diagnosis Office Visit 04/06[facility]2019 [facility] Baptiste C18.0 Malignant 1:30p Of Maranda Renee MD neoplasm of cecum [facility] K63.89 Other specified 8:24a Infectious Diseases [place], M.D. diseases of intestine R78.81 Bacteremia B96.89 Oth bacterial agents as the cause of diseases classd elswhr Office Visit 03/14/2019 7:00a [facility] Ashutosh Baptiste C18.0 Malignant Of Maranda Renee MD neoplasm of cecum Office Visit 03/14/2019 10:06a [facility] Maryam Alcocer, K63.89 Other specified Assoc,radha WILLIS diseases of Hospitalists intestine G20 Parkinson's disease I50.30 Unspecified diastolic (congestive) heart failure I49.5 Sick sinus syndrome I48.91 Unspecified atrial fibrillation E03.9 Hypothyroidism, unspecified Office Visit 03/14/2019 10:07a [facility] Sia G20 Parkinson's Services Of Maranda Denson MD disease J81.1 Chronic pulmonary edema Office Visit 03/13/2019 10:06a [facility] Maryam Alcocer, K63.89 Other specified Assoc,pc diseases of Hospitalists intestine A04.72 Enterocolitis d/t Clostridium difficile, not spcf as recur I50.9 Heart failure, unspecified I48.2 Chronic atrial fibrillation D64.9 Anemia, unspecified G20 Parkinson's disease E03.9 Hypothyroidism, unspecified Office Visit 03/12/2019 [facility] Lisamichela Baeza, K52.89 Other specified 7:00a Associates Of noninfective [facility] gastroenteritis and colitis K63.89 Other specified diseases of intestine Office Visit 03/12/2019 10:06a [facility] Sandy Diljessica, K63.89 Other specified Assoc,radha WILLIS diseases of Hospitalists intestine A04.72 Enterocolitis d/t Clostridium difficile, not spcf as recur D64.9 Anemia, unspecified I48.2 Chronic atrial fibrillation I50.9 Heart failure, unspecified G20 Parkinson's disease E03.9 Hypothyroidism, unspecified Office Visit 03/11/2019 [facility] Maryam A04.72 Enterocolitis d/t 10:02a radha Schneider MD Clostridium Hospitalists difficile, not spcf as recur I50.9 Heart failure, unspecified I48.2 Chronic atrial fibrillation D64.9 Anemia, unspecified G20 Parkinson's disease Office Visit 03/10/2019 [facility] Maryam A04.72 Enterocolitis d/t 10:02a radha Schneider MD Clostridium Hospitalists difficile, not spcf as recur I50.9 Heart failure, unspecified I48.2 Chronic atrial fibrillation D64.9 Anemia, unspecified Office Visit 03/09/2019 [facility] Ashutosh Baptiste K52.89 Other specified 7:00a Associates Of Maranda Renee MD noninfective gastroenteritis and colitis Office Visit 03/09/2019 [facility] Maryam K52.9 Noninfective 10:01a radha Schneider MD gastroenteritis and Hospitalists colitis, unspecified I50.9 Heart failure, unspecified I48.2 Chronic atrial fibrillation D64.9 Anemia, unspecified Office 03/08/2019 Surgical Ramiro Brock K52.89 Other specified Visit 7:00a Associates Of [facility] JACKY Weiss noninfective gastroenteritis and colitis Office 03/08/2019 [facility] Maryam Alcocer, K52.9 Noninfective Visit 10:01a radha Schneider MD gastroenteritis and Hospitalists colitis, unspecified I50.9 Heart failure, unspecified I48.2 Chronic atrial fibrillation D64.9 Anemia, unspecified Office Visit 03/07/2019 7:00a Surgical Ashutosh Baptiste K63.89 Other specified Associates Of Maranda Renee MD diseases of intestine R10.31 Right lower quadrant pain Office Visit 03/07/2019 [facility] Jennifer K52.9 Noninfective 10:00a radha Schneider M.D. gastroenteritis and Hospitalists colitis, unspecified I50.9 Heart failure, unspecified G20 Parkinson's disease I48.2 Chronic atrial fibrillation D64.9 Anemia, unspecified Office Visit 03/06/2019 10:00a [facility] Mingo Lopes, R10.31 Right lower radha Schneider MD quadrant pain Hospitalists A41.9 Sepsis, unspecified organism G20 Parkinson's disease I48.91 Unspecified atrial fibrillation E03.9 Hypothyroidism, unspecified I50.9 Heart failure, unspecified Office Visit 01/26/2019 10:00a [facility] Todd Hector G20 Parkinson's Services Of Maranda Lan M.D. 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 [employer] Office Visit 01/13/2018 1:45p [place] Bobby Cantu Parkinson's disease Services Of [facility] Caio Lan Office Visit 06/17/2017 1:45p [facility] Todd Cantu Parkinson's disease Services Of [facility] Caio Lan Office Visit 04/22/2017 10:15a [facility] Jasonkizzy Joshi I48.2 Chronic atrial Of [facility] Caio Licona, fibrillation [facility] Z95.0 Presence of cardiac pacemaker Office Visit 03/04/2017 10:15a [facility] Jasonkizzy Joshi R60.9 Edema, unspecified Of [facility] Caio Licona, [facility], [facility] R06.00 Dyspnea, unspecified Office Visit 12/16/2016 1:30p [place] Todd Cantu Parkinson's Neurologic Caio Lan disease Services Of [facility] Office Visit 10/14/2016 1:15p [facility] Jason Joshi I48.91 Unspecified atrial Cardiology Of Caio Licona, fibrillation [facility], [facility] [facility] [employer] I48.2 Chronic atrial fibrillation Office Visit 09/10/2016 8:15a [facility] Melissa Thompson, M25.551 Pain in right Of C.M.A. MConrad hip M16.11 Unilateral primary osteoarthritis, right hip Office Visit 04/09/2016 [place] Todd Hector G20 Parkinson's disease 3:00p Bobby Lan M.D. Services Of [facility] Office Visit 01/02/2016 [place]u Parkinson's disease 11:00a Neurologic Caio Lan Services Of [facility] Office Visit 10/15/2015 Orthopedic Melissa Thompson, M16.12 Unilateral primary 11:30a Services Of Caio osteoarthritis, left C.M.A. hip Office Visit 10/10/2015 [facility] Jason Joshi Q21.1 Atrial septal defect 11:45a Cardiology Of Caio Licona, Residence Manager AT [facility], FASNC Office Visit 02/12/2015 Orthopedic Melissa Thompson, 715.95 Osteoarthrosis 2:30p Services Of Caio Unspec Genlzd Or C.M.A. Localized Pelvic & Thigh Office Visit 01/10/2015 Orthopedic Melissaeron Thompson, 715.96 Osteoarthrosis 1:00p Services Of Caio Unspec Genlzd Or C.M.A. Localized Lower Leg 715.95 Osteoarthrosis Unspec Genlzd Or Localized Pelvic & Thigh Office Visit 10/09/2014 12:45p [facility] Jason Adi 427.31 Atrial Of Maranda Licona M.D., Fibrillation [facility], [facility] [facility] [employer] Office Visit 09/02/2013 2:30p [facility] Jasonkizzy Joshi 427.31 Atrial Of Maranda Licona M.D., Fibrillation [facility], [facility] [facility] Office Visit 08/23/2012 8:45a [facility] Jason Joshi 427.31 Atrial Of Maranda Licona M.D., Fibrillation [facility], [facility] [facility] Plan of Treatment Future Appointment(s):10/11/2019 1:00 pm - Jason Licona M.D., FACC, [facility] [facility] at [facility] Of [facility]08/03/2019 9:45 am - Todd Lan M.D. at [facility] Of [facility]04/20/2019 - Jason Licona M.D., [facility], YGQUGN51.31 Abnormal electrocardiogram [ECG] [EKG]Comments:As discussed, I feel your heart is fairly stable now. Please continue to stay off Diltiazem and willneed to tolerate some swelling in the ankles. Please elevate your legs as much as possible, use the compression stockings and avoid salt.Follow up:6 months
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
[2019-05-10 22:05] VITALS: BP 113/52
== END 2019-05-10 22:02 | disposition home or self-care (01) ==
LOC: ED 20:34
DX: R06.02 Shortness of breath (principal); F41.9 Anxiety disorder, unspecified; I48.91 Unspecified atrial fibrillation; Z95.810 Presence of automatic (implantable) cardiac defibrillator; Z88.1 Allergy status to other antibiotic agents; Z88.2 Allergy status to sulfonamides; Z88.8 Allergy status to other drugs, medicaments and biological substances
CPT/HCPCS: 99282

== ENCOUNTER 2019-09-12 19:49 | Emergency (ER) | payer MEDICARE ==
--- OUTSIDE RECORDS SUMMARY | 2019-09-12 20:05 | XMS REPORT | Continuity of Care Document ---
:1935 External Reference #:[id number] Author Name Todd Lan M.D. 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 Onset: 09/10/2016 the pelvic region and thigh Edema Jason Licona M.D., [facility], Onset: 03/04/2017 [facility] Difficulty breathing Jason Licona M.D., [facility], Onset: 03/04/2017 [facility] Chronic atrial fibrillation Jason Licona M.D., [facility], Onset: 04/07/2018 [facility] Anemia Sandy Saha MD Onset: 03/12/2019 Electrocardiogram abnormal Jason Licona M.D., [facility], Onset: 04/20/2019 [facility] Social History Type Date Description Comments Sex Unknown ETOH Use Denies alcohol use Tobacco Use Start: Unknown End: Patient is a former quit 40 years ago Unknown smoker Recreational Drug Use Never Used Drugs Smoking Status Reviewed: 08/03/19 Patient is a former quit 40 years [...] every 90tabs Jason Joshi 03/04/2017 40mg Tablets shira Licona M.D., NADER HARDEN Carbidopa-Levodopa take one tab by 360tabs Alondra Hector 01/02/2016 mouth at 6 am, Caio Lan 25-100mg Tablets 10 am, 2 pm, and 6 pm on an empty stomach, 1/2 hour to an hour prior to meals. Tylenol Arthritis Pain 2 po q8hrs prn 100tabs Unknown 650mg Tablets ER Refresh Eye Drops prn Unknown Ativan 1 tab po q6hrs Unknown 0.5mg Tablets as needed Sertraline HCL 1 by mouth every Unknown 25mg day Tablets Alprazolam 1 tab po qd Unknown 0.5mg Tablets Levothyroxine Sodium 1 by mouth every Unknown day 88mcg Tablets Melatonin 2 tabs po qhs Unknown 1mg Capsules Medications Administered in Office Medication SIG Qnty Indications Ordering Provider Date Inj, Regadenoson, 0.1 MG Jason Licona M.D., 06/01/2019 Injection NADER HARDEN Technetium TC 99M Jason Licona M.D., 06/01/2019 Tetrofosmin, Per Unit Dose NADER HARDEN Up To 40 Millicuries Injection Technetium TC 99M Jason Licona M.D., 06/01/2019 Tetrofosmin, Per Unit Dose NADER HARDEN Up To 40 Millicuries Injection Inj, Regadenoson, 0.1 MG Jason Licona M.D., 04/06/2017 Injection NADER HARDEN Technetium TC 99M Jason Licona M.D., 04/06/2017 Tetrofosmin, Per Unit Dose NADER HARDEN Up To 40 Millicuries Injection Immunizations Description No Information Available Vital Signs Date Vital Result Comment 08/03/2019 9:40am Weight 131.38 lb Heart Rate 70 /min BP Systolic Sitting 112 mmHg BP Diastolic Sitting 62 mmHg Respiratory Rate 16 /min 06/03/2019 1:41pm Height 62 inches 5'2" Weight 132.00 lb Heart Rate 70 /min BP Systolic Sitting 110 mmHg Lue reg cuff BP Diastolic Sitting 60 mmHg Lue reg cuff BP Systolic Standing 110 mmHg Lue reg cuff BP Diastolic Standing 56 mmHg Lue reg cuff BMI (Body Mass Index) 24.1 kg/m2 Ejection Fraction 50-55% Results Test Date Facility Test Result H/L Range Note Laboratory test [facility] Surgical SEE RESULT 1 finding [address] [place] [address] [phone] Inr/Protime [facility] Inr 2.50 High 0.82-1.09 [address] [place], [place] [id number] [phone] Laboratory test [facility] B-Type 590 pg/mL High <= 100 finding [address] [place] [address] Peptide BNP [phone] CBC Auto Diff [facility] White Blood 12.5 High 3.5- 10.[address] Count 10^3/uL [place], [place] [id number] [phone] Red Blood Count 3.30 10^6/uL Low 3.70-4.87 Hemoglobin 8.8 g/dL Low 12.0-16.0 Hematocrit 28 % Low 35-47 Mean Corpuscular Volume 83 fL Normal 80-97 Mean Corpuscular Hemoglobin 27 pg Normal 27-31 Mean Corpuscular HGB Conc 32 g/dL Normal 31-36 Red Cell Distribution Width 17 % High 10.5-15 Platelet Count 485 10^3/uL High 150-450 Mean Platelet Volume 7.1 fL Low 7.4-10.4 Abs Neutrophils 10.8 10^3/uL High 1.5-7.7 Abs Lymphocytes 0.4 10^3/uL Low 1.0-4.8 Abs Monocytes 1.3 10^3/uL High 0-0.8 Abs Eosinophils 0.0 10^3/uL Normal 0-0.6 Abs Basophils 0.1 10^3/uL Normal 0-0.2 Abs Nucleated RBC 0.0 10^3/uL Granulocyte % 85.9 % Lymphocyte % 3.0 % Monocyte % 10.5 % Eosinophil % 0.1 % Basophil % 0.5 % Nucleated Red Blood Cells % 0.0 Laboratory test 03/06/2019 [facility] Lactic Acid 1.4 mmol/L Normal 0.5-2.0 3 finding [address] [place] [address] [phone] Comp Metabolic 03/06/2019 [facility] Sodium 136 mmol/L Normal 135-145 Panel [address] [place] [address] [phone] Potassium 4.1 mmol/L Normal 3.5-5.0 Chloride 104 mmol/L Normal 101-111 Co2 Carbon Dioxide 25 mmol/L Normal 22-32 Anion Gap 7 mmol/L Normal 2-11 Glucose 137 mg/dL High 70-100 Blood Urea Nitrogen 26 mg/dL High 6-24 Creatinine 0.94 mg/dL Normal 0.51-0.95 BUN/Creatinine Ratio 27.7 High 8-20 Calcium 9.0 mg/dL Normal 8.6-10.3 Total Protein 7.0 g/dL Normal 6.4-8.9 Albumin 3.6 g/dL Normal 3.2-5.2 Globulin 3.4 g/dL Normal 2-4 Albumin/Globulin Ratio 1.1 Normal 1-3 Total Bilirubin 0.40 mg/dL Normal 0.2-1.0 Alkaline Phosphatase 70 U/L Normal 34-104 Alt 4 U/L Low 7-52 Ast 9 U/L Low 13-39 Egfr Non- 56.7 >60 Egfr 68.6 >60 4 Laboratory test 03/06/2019 [facility] Magnesium 2.4 mg/dL Normal 1.9-2.7 finding [address] [place] [address] [phone] Creatine Kinase(CK) 31 U/L Normal 10-223 C Reactive Protein 134.36 mg/L High <8.01 Troponin-I (TnI) 0.01 ng/mL <0.04 5 TSH (Thyroid Stim Horm) 7.82 mcIU/mL High 0.34-5.60 Urinalysis Profile 03/06/2019 [facility] Urine Color Straw [address] [place] [address] [phone] Urine Appearance Cloudy Urine Specific [place] 1.009 Low 1.010-1.030 Urine pH 5.0 Normal 5-9 Urine Urobilinogen Negative Negative Urine Ketones Negative Negative Urine Protein Negative Negative Urine Leukocytes Negative Negative Urine Blood 1+ Abnormal Negative Urine Nitrite Negative Negative Urine Bilirubin Negative Negative Urine Glucose Negative Negative Urine White Blood Cell Trace(0-5/hpf) Absent Urine Red Blood Cell Trace(0-2/hpf) Absent Urine Bacteria Absent Absent Urine Squamous Epithelial Cell Present Abnormal Absent Urine Hyaline Casts Present Abnormal Absent Iron & Iron Binding 03/06/2019 [facility] Iron 23 g/dL Low 50-[address] [place] [address] [phone] Unsaturated Iron Binding < 296 g/dL Total Iron Binding Capacity 311 g/dL Normal 250-450 Transferrin 222 mg/dL Normal 203-362 % Iron Saturation 7 % Low 15-55 Laboratory test 03/06/2019 [facility] Ferritin 37.1 ng/mL Normal 11-[address] [place] [address] [phone] Urine Culture 03/06/2019 [facility] Urine SEE RESULT [address] [place] [address] [phone] Influenza A & B 03/06/2019 [facility] Influenza A NEGATIVE Negative [address] [place] [address] [phone] Influenza B Molecular NEGATIVE Negative 1 SEE RESULT BELOW Name: MELINA WEISS : [address]: Maryam Alccoer MD Acct: [id number] Unit: [id number] AGE: 83 Location: [place] [address] Re03/06/19 Dis: 03/14/19 SEX: F Status: DIS IN SPEC: [id number] SCOOBY: 03/11/19- DR: Jadon Alfaro DO REQ: [id number] RECD: 03/11/19 STATUS: DREW NAILS DR: Art Hernandez [facility] Mingo Finley MD _ ORDERED: LEVEL [...] CONTINUED ON NEXT PAGE DEPARTMENT OF PATHOLOGY, [address] [place] [address] Luis Jones M.D. Director [facility] # [id number] RUN DATE: 03/16/19 [facility] LAB LIVE PAGE 2 Patient: MELINA WEISS [id number] (Continued) FINAL DIAGNOSIS (Continued) COMMENT: Mismatch repair [...] 1211 END OF REPORT DEPARTMENT OF PATHOLOGY, [address] [place] [address] Luis Jones M.D. Director [facility] # [id number] 2 Standard intensity warfarin therapeutic range: 2.0-3.0 High intensity warfarin therapeutic range: 2.5-3.5 3 [facility] Severe Sepsis and Septic Shock Management Bundle Measure requires all lactic acids initially measuring >2.0 mmol/L be repeated. 4 Because ethnic data is not always readily [...] 15-29 5 Kidney failure <15 (or dialysis) 5 Troponin-I testing on Plasma Separator Tubes (PST) has a known false positive rate of 0.20-0.40%. All positive troponins reflex immediately to secondary confirmatory testing. Using the [employer] DxI 800 Access Immunoassay systems, the 99th percentile upper reference limit was demonstrated to be < 0.03 ng/mL. 6 SEE RESULT BELOW Name: MELINA WEISS : [address]: Jennifer Arana MD Acct: [id number] Unit: [id number] AGE: 83 Location: [place] [address] Re03/06/19 SEX: F Status: ADM IN SPEC: [id number] SCOOBY: 03/06/19 [facility] DR: Hunter Suarez MD REQ: [id number] RECD: 03/06/19 STATUS: BHAVANI NAILS DR: Art Lan MD _ SOURCE: URINE SPDESC: ORDERED: Urine Culture Procedure Result Reported Site Urine Culture Final 03/07/19- 1601 ML No growth of clinically significant organisms * ML - Main Lab . END OF REPORT DEPARTMENT OF PATHOLOGY, [address] [place] [address] Luis Jones M.D. 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: [id number] Procedures Date Code Description Status 06/01/2019 65541 Stress Test Completed 06/01/2019 45254 Myocardial Perfusion Imaging Tomographic (Spect) Completed Multiple Studies 04/20/2019 24496 EKG Tracing & Interpretation Completed 03/11/2019 88396497 Colonoscopy Completed 03/07/2019 52284 ECHO Transthorasic Realtime 2D W Doppler & Color Flow Completed Hosp 02/28/2019 57415 Pace Maker Eval W/Iterative Adjustment Single Lead Completed 02/28/2019 88075 Pace Maker Eval W/Iterative Adjustment Single Lead Completed Medical Devices Description No Information Available Encounters Type Date Location Provider Dx Diagnosis Office Visit 06/03/2019 [place] [facility] Jason Joshi Z01.810 Encounter for 1:45p Of Maranda Licona M.D., preprocedural FACNADER Luke cardiovascular examination C18.9 Malignant neoplasm of colon, unspecified R94.31 Abnormal electrocardiogram [ECG] [EKG] Z95.0 Presence of cardiac pacemaker I48.2 Chronic atrial fibrillation Office Visit 04/20/2019 [place] Jason Joshi R94.31 Abnormal 1:15p Cardiology Benjie Licona M.D., electrocardiogram NADER Low FACC [ECG] [EKG] I48.2 Chronic atrial fibrillation Z95.0 Presence of cardiac pacemaker Office Visit 04/06/2019 1:30p [facility] Ashutosh Baptiste C18.0 Malignant Of Maranda Renee MD neoplasm of cecum Office Visit 03/14/2019 10:06a [facility] Maryam Alcocer, K63.89 Other specified Assoc,pc diseases of Hospitalists intestine G20 Parkinson's disease I50.30 Unspecified diastolic (congestive) heart failure I49.5 Sick sinus syndrome I48.91 Unspecified atrial fibrillation E03.9 Hypothyroidism, unspecified Office Visit 03/14/2019 10:07a [facility] Sia G20 [facility] MD Jarett disease J81.1 Chronic pulmonary edema Office Visit 03/14/2019 7:00a [facility] Ashutosh Baptiste C18.0 [facility] Mar[facility] Renee MD neoplasm of cecum Office Visit 03/14/2019 8:24a [facility] Keaton Carreno K63.89 Other specified Infectious Caio Austin diseases of Diseases intestine R78.81 Bacteremia B96.89 Oth bacterial agents as the cause of diseases classd elswhr Office Visit 03/13/2019 10:06a [facility] Maryam Alcocer, K63.89 Other specified Assoc,radha WILLIS diseases of Hospitalists intestine A04.72 Enterocolitis d/t Clostridium difficile, not spcf as recur I50.9 Heart failure, unspecified I48.2 Chronic atrial fibrillation D64.9 Anemia, unspecified G20 Parkinson's disease E03.9 Hypothyroidism, unspecified Office Visit 03/12/2019 Surgical Lisa Baeza, K52.89 Other specified 7:00a Associates Of noninfective Maranda gastroenteritis and colitis K63.89 Other specified diseases of intestine Office Visit 03/12/2019 10:06a [facility] Sandy Saha, K63.89 Other specified Assoc,radha WILLIS diseases of Hospitalists intestine A04.72 Enterocolitis d/t Clostridium difficile, not spcf as recur D64.9 Anemia, unspecified I48.2 Chronic atrial fibrillation I50.9 Heart failure, unspecified G20 Parkinson's disease E03.9 Hypothyroidism, unspecified Office Visit 03/11/2019 [facility] Maryam A04.72 Enterocolitis d/t 10:02a Assoc,radha Alcocer MD Clostridium Hospitalists difficile, not spcf as recur I50.9 Heart failure, unspecified I48.2 Chronic atrial fibrillation D64.9 Anemia, unspecified G20 Parkinson's disease Office Visit 03/10/2019 [facility] Maryam A04.72 Enterocolitis d/t 10:02a Assocradha MD Clostridium Hospitalists difficile, not spcf as recur I50.9 Heart failure, unspecified I48.2 Chronic atrial fibrillation D64.9 Anemia, unspecified Office Visit 03/09/2019 [facility] Ashutosh Baptiste K52.89 Other specified 7:00a [facility] Maranda Renee MD noninfective gastroenteritis and colitis Office Visit 03/09/2019 [facility] Maryam K52.9 Noninfective 10:01a radha Schneider MD gastroenteritis and Hospitalists colitis, unspecified I50.9 Heart failure, unspecified I48.2 Chronic atrial fibrillation D64.9 Anemia, unspecified Office 03/08/2019 Surgical Ramiro Brock K52.89 Other specified Visit 7:00a [facility] JACKY Duarte noninfective gastroenteritis and colitis Office 03/08/2019 [facility] Maryam Alcocer K52.9 Noninfective Visit 10:01a radha Schneider MD gastroenteritis and Hospitalists colitis, unspecified I50.9 Heart failure, unspecified I48.2 Chronic atrial fibrillation D64.9 Anemia, unspecified Office Visit 03/07/2019 7:00a Surgical Ashutosh Baptiste K63.89 Other specified [facility] Maranda Renee MD diseases of intestine R10.31 Right lower quadrant pain Office Visit 03/07/2019 [facility] Jennifer K52.9 Noninfective 10:00a Assradha babcock M.D. gastroenteritis and Hospitalists colitis, unspecified I50.9 Heart failure, unspecified G20 Parkinson's disease I48.2 Chronic atrial fibrillation D64.9 Anemia, unspecified Office Visit 03/06/2019 10:00a [facility] Mingo Lopes, R10.31 Right lower Assradha babcock MD quadrant pain Hospitalists A41.9 Sepsis, unspecified organism G20 Parkinson's disease I48.91 Unspecified atrial fibrillation E03.9 Hypothyroidism, unspecified I50.9 Heart failure, unspecified Assessments Date Code Description Provider 08/03/2019 C18.9 Malignant neoplasm of colon, Todd Lan M.D. unspecified 08/03/2019 G20 Parkinson's disease Todd Lan M.D. 06/03/2019 Z01.810 Encounter for preprocedural Jason Licona M.D., [facility], cardiovascular examination [facility] 06/03/2019 C18.9 Malignant neoplasm of colon, Jason Licona M.D., FACC, unspecified [facility] 06/03/2019 R94.31 Abnormal electrocardiogram [ECG] Jason Licona M.D., [facility], [EKG] [facility] 06/03/2019 Z95.0 Presence of cardiac pacemaker Jason Licona M.D., [facility], [facility] 06/03/2019 I48.2 Chronic atrial fibrillation Jason Licona M.D., [facility], [facility] 06/01/2019 R94.31 Abnormal electrocardiogram [ECG] Jason Licona M.D., [facility], [EKG] [facility] 04/20/2019 R94.31 Abnormal electrocardiogram [ECG] [facility], [[facility]] [facility] 04/20/2019 I48.2 Chronic atrial fibrillation Jason Licona M.D., [facility], [facility] 04/20/2019 Z95.0 Presence of cardiac pacemaker Jason Licona M.D., [facility], [facility] 04/06/2019 C18.0 Malignant neoplasm of cecum Ashutosh Renee MD 03/14/2019 K63.89 Other specified diseases of Keaton Austin M.D. intestine 03/14/2019 G20 Parkinson's disease Sia Denson MD 03/14/2019 R78.81 Bacteremia Keaton Austin M.D. 03/14/2019 C18.0 Malignant neoplasm of cecum Ashutosh Renee MD 03/14/2019 B96.89 Oth bacterial agents as the cause of Keaton Austin M.D. diseases [facility] 03/14/2019 J81.1 Chronic pulmonary edema Sia Denson MD 03/14/2019 K63.89 Other specified diseases of Maryam Alcocer MD intestine 03/14/2019 G20 Parkinson's disease Maryam Alcocer MD 03/14/2019 I50.30 Unspecified diastolic (congestive) Maryam Alcocer MD heart failure 03/14/2019 I49.5 Sick sinus syndrome Maryam Alcocer MD 03/14/2019 I48.91 Unspecified atrial fibrillation Maryam Alcocer MD 03/14/2019 E03.9 Hypothyroidism, unspecified Maryam Alcocer MD 03/13/2019 K63.89 Other specified diseases of Maryam Alcocer MD intestine 03/13/2019 A04.72 Enterocolitis due to Clostridium Maryam Alcocer MD difficile, not specified as 03/13/2019 I50.9 Heart failure, unspecified Maryam Alcocer MD 03/13/2019 I48.2 Chronic atrial fibrillation Maryam Alcocer MD 03/13/2019 D64.9 Anemia, unspecified Maryam Alcocer MD 03/13/2019 G20 Parkinson's disease Maryam Alcocer MD 03/13/2019 E03.9 Hypothyroidism, unspecified Maryam Alcocer MD 03/12/2019 K63.89 Other specified diseases of Sandy Saha MD intestine 03/12/2019 K52.89 Other specified noninfective Lisa Baeza MD gastroenteritis and colitis 03/12/2019 K63.89 Other specified diseases of Lisa Baeza MD intestine 03/12/2019 A04.72 Enterocolitis due to Clostridium Sandy Saha MD difficile, not specified as 03/12/2019 D64.9 Anemia, unspecified Sandy Saha MD 03/12/2019 I48.2 Chronic atrial fibrillation Sandy Saha MD 03/12/2019 I50.9 Heart failure, unspecified Sandy Saha MD 03/12/2019 G20 Parkinson's disease Sandy Saha MD 03/12/2019 E03.9 Hypothyroidism, unspecified Sandy Saha MD 03/11/2019 A04.72 Enterocolitis d/t Daiana Alcocer MD difficile, not spcf as recur 03/11/2019 I50.9 Heart failure, unspecified Maryam Alcocer MD 03/11/2019 I48.2 Chronic atrial fibrillation Maryam Alcocer MD 03/11/2019 D64.9 Anemia, unspecified Maryam Alcocer MD 03/11/2019 G20 Parkinson's disease Maryam Alcocer MD 03/10/2019 A04.72 Enterocolitis d/t Daiana Alcocer MD difficile, not spcf as recur 03/10/2019 I50.9 Heart failure, unspecified Maryam Alcocer MD 03/10/2019 I48.2 Chronic atrial fibrillation Maryam Alcocer MD 03/10/2019 D64.9 Anemia, unspecified Maryam Alcocer MD 03/09/2019 K52.89 Other specified noninfective Ashutosh Renee MD gastroenteritis and colitis 03/09/2019 K52.9 Noninfective gastroenteritis and Maryam Alcocer MD colitis, unspecified 03/09/2019 I50.9 Heart failure, unspecified Maryam Alcocer MD 03/09/2019 I48.2 Chronic atrial fibrillation Maryam Alcocer MD 03/09/2019 D64.9 Anemia, unspecified Maryam Alcocer MD 03/08/2019 K52.89 Other specified noninfective JACKY Hay gastroenteritis and colitis 03/08/2019 K52.9 Noninfective gastroenteritis and Maryam Alcocer MD colitis, unspecified 03/08/2019 I50.9 Heart failure, unspecified Maryam Alcocer MD 03/08/2019 I48.2 Chronic atrial fibrillation Maryam Alcocer MD 03/08/2019 D64.9 Anemia, unspecified Maryam Alcocer MD 03/07/2019 K63.89 Other specified diseases of Ashutosh Renee MD intestine 03/07/2019 K52.9 Noninfective gastroenteritis and Jennifer Arana M.D. colitis, unspecified 03/07/2019 R10.31 Right lower quadrant pain Ashutosh Renee MD 03/07/2019 I50.9 Heart failure, unspecified Deshawn Fagan M.D. 03/07/2019 I50.9 Heart failure, unspecified Jennifer Arana M.D. 03/07/2019 G20 Parkinson's disease Jennifer Arana M.D. 03/07/2019 I48.2 Chronic atrial fibrillation Jennifer Arana M.D. 03/07/2019 D64.9 Anemia, unspecified Jennifer Arana M.D. 03/06/2019 R10.31 Right lower quadrant pain Mingo Lopes MD 03/06/2019 A41.9 Sepsis, unspecified organism Mingo Lopes MD 03/06/2019 G20 Parkinson's disease Mingo Lopes MD 03/06/2019 I48.91 Unspecified atrial fibrillation Mingo Lopes MD 03/06/2019 E03.9 Hypothyroidism, unspecified Mingo Lopes MD 03/06/2019 I50.9 Heart failure, unspecified Mingo Lopes MD 02/28/2019 I48.2 Chronic atrial fibrillation Ica Pacer Schedule 02/28/2019 Z95.0 Presence of cardiac pacemaker Jason Licona M.D., [facility], [facility] 02/28/2019 Z95.0 Presence of cardiac pacemaker Ica Pacer Schedule 02/28/2019 I49.5 Sick sinus syndrome Ica Pacer Schedule Plan of Treatment Future Appointment(s):09/27/2019 2:15 pm - Todd Lan M.D. at [facility]10/11/2019 1:00 pm - Jason Licona M.D., [facility], [facility] at [place] [facility]08/03/2019 - Todd Lan M.D.C18.9 Malignant neoplasm of colon, [id number] Parkinson's diseaseFollow up:2 monthsRecommendations:increase Sinemet 25/100 to 1 1/2 at 6AM, 1 at 10 AM, 1 1/ 2 at 2 PM, and 1 at 6 PM Functional Status Description No Information Available Mental Status Description No Information Available Referrals Description No Information Available
--- NOTE | 2019-09-12 20:11 | ED ---
Complex/Multi-Sys Presentation - HPI Summary HPI Summary: This patient is a 84 year old F presenting to [facility] accompanied by her children with a chief complaint of tremors and confusion since 1829. Pt has Parkinsons disease and cancer. Per daughter, pt kept shaking. Pt stated her head was falling off. Her O2 was 99%, BP was higher than baseline, and has a pacemaker set at 60. She last had her Parkinsons medications at 1600 today. The patient rates the pain 0/10 in severity. Symptoms aggravated by nothing. Symptoms alleviated by nothing. Patient reports being thirsty. Patient denies fever, nausea, vomiting, diarrhea, CP. - History Of Current Complaint Time Seen by Provider: 09/12/19 19:58 Hx Obtained From: Patient, Family/Storage Battery [employer]ger - daughter Onset/Duration: Sudden Onset, Lasting Hours - since 1829 today, Still Present Timing: Constant Severity Currently: Moderate Severity Initially: Moderate Aggravating Factor(s): nothing Alleviating Factor(s): nothing Associated Signs And Symptoms: Positive: Confusion, Other - positive - tremors, increased thirst.. Negative: Chest Pain, Nausea, Vomiting, Diarrhea, Fever - Allergies/Home Medications Allergies/Adverse Reactions: Allergies Allergy/AdvReac Type Severity Reaction Status Date / Time amoxicillin [From Augmentin] Allergy Hives Verified 09/26/18 10:19 cephalexin [From Keflex] Allergy Hives Verified 09/26/18 10:19 clarithromycin [From Biaxin] Allergy Hives Verified 09/26/18 10:19 clavulanic acid Allergy Hives Verified 09/26/18 10:19 [From Augmentin] doxycycline Allergy Hives Verified 09/26/18 10:19 dronedarone [From Multaq] Allergy Hives Verified 09/26/18 10:19 levofloxacin [From Levaquin] Allergy Hives Verified 09/26/18 10:19 nitrofurantoin Allergy Hives Verified 03/07/19 08:34 [From Macrodantin] nitroglycerin Allergy Hives Verified 09/26/18 10:19 propafenone Allergy Hives Verified 03/07/19 08:34 Sulfa (Sulfonamide Allergy Hives Verified 09/26/18 10:19 Antibiotics) sulfamethoxazole Allergy Hives Verified 09/26/18 10:19 [From Bactrim] trimethoprim [From Bactrim] Allergy Hives Verified 09/26/18 10:19 Home Medications: Home Medications Acetaminophen TAB* [Tylenol TAB*] 650 mg PO Q6H PRN 09/12/19 [History Confirmed 09/12/19] Bumetanide TAB* [Bumex 1 MG TAB*] 0.5 mg PO DAILY 09/12/19 [History Confirmed ] Carbidopa/Levodop 25/100 MG(*) [Sinemet 25/100 TAB(*)] 1 tab PO BID 09/12/19 [ History Confirmed 09/12/19] Carbidopa/Levodopa/Entacapone [Carbidopa-Levodopa 200 mg-Enta] 1 tab PO BID [History Confirmed 09/12/19] Levothyroxine TAB* [Synthroid 88 MCG TAB*] 88 mcg PO DAILY 09/12/19 [History Confirmed 09/12/19] Magnesium Hydroxide LIQ* [Milk of Magnasad LIQ*] 30 ml PO BID PRN 09/12/19 [ History Confirmed 09/12/19] Melatonin 2 mg PO DAILY 09/12/19 [History Confirmed 09/12/19] Senna TAB 8.6 mg* [Senokot 8.6 mg TAB*] 2 tab PO DAILY 09/12/19 [History Confirmed 09/12/19] Sertraline* [Zoloft*] 25 mg PO DAILY 09/12/19 [History Confirmed 09/12/19] Sertraline* [Zoloft*] 50 mg PO DAILY 09/12/19 [History Confirmed 09/12/19] clonazePAM TAB(*) [Klonopin TAB(*)] 0.5 mg PO BID PRN 09/12/19 [History Confirmed 09/12/19] clonazePAM TAB(*) [Klonopin TAB(*)] 0.5 mg PO DAILY PRN 09/12/19 [History Confirmed 09/12/19] PMH/Surg Hx/FS Hx/Imm Hx Previously Healthy: No Endocrine/Hematology History: Denies: Hx Diabetes Cardiovascular History: Reports: Hx Atrial Fibrillation, Hx Pacemaker/ICD, Other Cardiovascular Problems/Disorders - SEPTAL DEFECT REPAIR Denies: Hx Hypertension GI History: Reports: Hx Gall Bladder Disease - cholecystectomy, Other GI Disorders - chronic constipation Musculoskeletal History: Reports: Hx Arthritis, Other Musculoskeletal History - ankalosing spondylitis Sensory History: Reports: Hx Contacts or Glasses Denies: Hx Hearing Aid Opthamlomology History: Reports: Hx Contacts or Glasses Neurological History: Reports: Other Neuro Impairments/Disorders - Parkinson's - Surgical History Surgical History: Yes Surgery Procedure, Year, and Place: cholecystectomy, pacer Infectious Disease History: No Infectious Disease History: Denies: Traveled Outside the [place] in Last 30 Days - Family History Known Family History: Negative: Blood Disorder - Social History Alcohol Use: None Hx Substance Use: No Substance Use Type: Reports: None Hx Tobacco Use: No Smoking Status (MU): Never Smoked Tobacco Review of Systems Constitutional: Other - positive - increased thirst Negative: Fever Negative: Chest Pain Negative: Vomiting, Diarrhea, Nausea Neurological: Other - positive - tremors Psychological: Other - positive - confusion All Other Systems Reviewed And Are Negative: Yes Physical Exam - Summary Physical Exam Summary: General: Well-developed, Well-nourished elderly FEMALE. No acute distress. HEENT: Normocephalic, Atraumatic. Eyes: Conjuctiva normal, PERRL. Ears: TMs within normal limits. Nares: (-) discharge, (-) erythema. Oropharynx: Clear, mucous membranes moist, (-) exudates. Neck: Soft, FROM, (-) lymphadenopathy, (-) thyromegaly, (-) JVD. Cardiovascular: Normal sinus rhythm, (-) murmur. Lungs: Clear to auscultation bilaterally (-) wheezes, (-) rales, (-) rhonchi. Abdomen: Soft, non-tender, non-distended, (-) organomegaly, normal bowel sounds. Back: (-) CVA tenderness Extremities: No edema. Skin: Warm, dry, (-) rash. Pale Neuro: Alert and oriented x3, no focal deficits. Mild tremors Psychiatric: Mood normal, affect normal. Triage Information Reviewed: Yes Vital Signs On Initial Exam: Initial Vitals Temp Pulse Resp BP Pulse Ox 98.1 F 81 17 112/94 97 09/12/19 19:55 09/12/19 19:55 09/12/19 19:55 09/12/19 19:55 09/12/19 19:55 Vital Signs Reviewed: Yes Procedures - Sedation Patient Received Moderate/Deep Sedation with Procedure: No Diagnostics - Vital Signs Vital Signs Temp Pulse Resp BP Pulse Ox 09/12/19 19:55 98.1 F 81 17 112/94 97 - Laboratory Result Diagrams: 09/12/19 20:52 09/12/19 20:52 Lab Statement: Any lab studies that have been ordered have been reviewed, and results considered in the medical decision making process. - Radiology CXR Radiology Interpretation Completed By: ED Physician Summary of Radiographic Findings: Impression: No significant changes, no obvious infiltrates or effusions. - EKG 2019 Cardiac Rate: Tachycardia - 104 BPM EKG Rhythm: Atrial Fibrillation Summary of EKG Findings: EKG at 2019 shows 104 BPM, a-fib, no STEMI Re-Evaluation - Re-Evaluation First Eval Re-Evaluation Time: 23:02 Comment: Pt will be given her last Ativan dose and then discharged. Pt is scared to return to [facility] so her daughter will stay with her for the night. Complex Multi-Symp Course/Dx Course Of Treatment: 84-year-old female from prison with known Parkinson' s for increased shaking and confusion. Accompanied by her children. They state she seems distressed today. Patient is alert and oriented 3. States she is shaking more than normal. During ED course, pt was given Sinemet and fluids. Decrease and lactic acid. No other significant abnormalities noted. Patient discharged back to prison. Family states that she is currently having her anxiety meds adjusted. She is nervous to go back to the prison. Family will stay with her tonight. Follow-up with PCP. Follow-up sooner for any worsening symptoms. - Diagnoses Provider Diagnoses: Confusion, Parkinson disease Discharge ED - Sign-Out/Discharge Documenting (check all that apply): Patient Departure - discharge - Discharge Plan Condition: Stable Disposition: HOME Patient Education Materials: Parkinson Disease (ED) Referrals: Art Dee MD [Primary Care Provider] - 3 Days Additional Instructions: Follow up with your primary care provider within 3 days. Return to the ED for any new or worsening symptoms. - Billing Disposition and Condition Condition: STABLE Disposition: Home - Attestation Statements Document Initiated by Scribe: Yes Documenting Scribe: Austen Carrizales Provider For Whom Scribe is Documenting (Include Credential): Dr. Dagmar Alfaro MD Scribe Attestation: Austen Santamaria, scribed for Dr. Dagmar Alfaro MD on 09/13/19 at 0048. Scribe Documentation Reviewed: Yes Provider Attestation: The documentation as recorded by the scribe, Austen Carrizales accurately reflects the service I personally performed and the decisions made by me, Dr. Dagmar Alfaro MD Status of Scribe Document: Viewed
[2019-09-12 21:00] LABS: ABS Basophils 0.1 10^3/ul (0-0.2); ABS Lymphocytes 0.8 10^3/ul (1.0-4.8); ABS Monocytes 0.6 10^3/ul (0-0.8); ABS Neutrophils 7.1 10^3/ul (1.5-7.7); Eosinophil % 0.5 %; Hematocrit 23 % (35-47); Hemoglobin 7.3 g/dL (12.0-16.0); Lymphocyte % 8.8 %; Mean Corpuscular HGB Conc 32 g/dL (31-36); Mean Corpuscular Hemoglobin 27 pg (27-31); Mean Corpuscular Volume 84 fL (80-97); Mean Platelet Volume 6.4 fL (7.4-10.4); Platelet Count 649 10^3/uL (150-450); Red Blood Count 2.68 10^6 /uL (3.70-4.87); Red Cell Distribution Width 17 % (10-15); White Blood Count 8.6 10^3/uL (3.5-10.8)
[2019-09-12 21:10] LABS: INR 1.12 (0.82-1.09)
[2019-09-12 21:20] LABS: Troponin I 0.01 ng/mL (<0.04)
[2019-09-12 21:25] LABS: ALT < 3 U/L (7-52); AST 7 U/L (13-39); Albumin 2.8 g/dL (3.2-5.2); Albumin/Globulin Ratio 0.8 (1-3); Alkaline Phosphatase 109 U/L (34-104); Anion Gap 8 mmol/L (2-11); BUN/Creatinine Ratio 23.4 (8-20); Blood Urea Nitrogen 15 mg/dL (6-24); CO2 Carbon Dioxide 25 mmol/L (22-32); Calcium 8.4 mg/dL (8.6-10.3); Chloride 102 mmol/L (101-111); EGFR African American 106.7 (>60); EGFR Non-African American 88.2 (>60); Globulin 3.5 g/dL (2-4); Glucose 97 mg/dL (70-100); Potassium 3.8 mmol/L (3.5-5.0); Sodium 135 mmol/L (135-145); Total Protein 6.3 g/dL (6.4-8.9)
[2019-09-12 21:27] LABS: Urine Appearance Clear; Urine Bilirubin Negative (Negative); Urine Blood Negative (Negative); Urine Color Amber; Urine Glucose Negative (Negative); Urine Ketones Trace (Negative); Urine Nitrite Negative (Negative); Urine Protein Negative (Negative); Urine Specific Gravity 1.017 (1.010-1.030); Urine Urobilinogen Negative (Negative)
[2019-09-12] MEDS ORDERED: Carbidopa/Levodop CR 50/200(*) TAB.CR PO ONE (21:37)
[2019-09-12 21:38] LABS: Urine Benzodiazepine Screen None Detected (None Detect); Urine Opiates Screen None Detected (None Detect)
[2019-09-12] MEDS ORDERED: NS 0.9% 1000 ML** 1,000 ML IV ONE (21:39)
[2019-09-12 21:58] LABS: TSH (Thyroid Stimulating Horm) 15.77 mcIU/mL (0.34-5.60)
[2019-09-12] MEDS ORDERED: LORazepam TAB(*) 1 MG PO ONE (23:06)
[2019-09-13 00:40] VITALS: BP 108/53
== END 2019-09-13 00:39 | disposition home or self-care (01) ==
LOC: ED 19:49
DX: R41.0 Disorientation, unspecified (principal); G20 Parkinson's disease; I48.91 Unspecified atrial fibrillation; F41.9 Anxiety disorder, unspecified; Z95.810 Presence of automatic (implantable) cardiac defibrillator; Z88.1 Allergy status to other antibiotic agents; Z88.0 Allergy status to penicillin; Z88.2 Allergy status to sulfonamides; Z88.8 Allergy status to other drugs, medicaments and biological substances
CPT/HCPCS: 36415; 71045; 80053; 80307; 81003; 83605; 84443; 84484; 85025; 85610; 87040; 87641; 93005; 96360; 99283; A9270-GY